=== PATIENT | female | born 1945 | race American Indian/Alaskan Native ===

== ENCOUNTER 2018-12-23 09:47 | Inpatient (IN) | payer MEDICARE ==
[~2018-12-23 09:47] MED LIST: LORazepam 2 MG/ML VIAL IV ONE
[2018-12-23] MEDS ORDERED: levETIRAcetam 1000 MG/NS 0.75% 1,000 MG/100 ML BAG IV ONE ×2 (09:55→11:07)
--- NOTE | 2018-12-23 10:47 | Emergency Department Report ---
HPI - General Time Seen by Provider: 12/23/18 09:57 - HPI HPI: 73-year-old -[place] female presents to the emergency department after having multiple seizures both at home and in route with EMS. She received 5 mg of Versed that helped stop the seizures that were occurring in route. She has a past medical history of multiple CVA, xnr-lizytih-uledrbeir diabetes, hypothy roidism, hypertension but there is no known seizure history. Patient is currently a poor historian secondary to her acute medical condition. Her previous strokes left her with residual left-sided hemiparesis. The patient's daughter is now at bedside and says that there has been no recent fall or trauma. ED Past Medical Hx - Past Medical History Hx Hypertension: Yes Hx Congestive Heart Failure: No Hx Diabetes: Yes Hx Arthritis: Yes Hx Asthma: Yes Hx COPD: Yes (asthma) - Social History Smoking Status: Former Smoker - Medications Home Medications: Home Medications Medication Instructions Recorded Confirmed Last Taken Type Insulin Detemir [Levemir Flexpen] 5 unit SC HS 02/16/13 12/23/18 12/22/18 History Insulin Aspart [NovoLOG 100 100 unit SQ AC PRN #1 bottle 03/15/13 12/23/18 12/22/18 Rx UNITS/ML VIAL] Multivitamin Tab [Multiple Vitamin 1 each PO QDAY #30 tablet 03/15/13 12/23/18 12/22/18 Rx TAB (Theragran)] glipiZIDE [Glipizide Xl] 2.5 mg PO QAM #30 tab.er.24 03/15/13 12/23/18 12/22/18 Rx glipiZIDE [Glipizide Xl] 5 mg PO QAM #30 tab.er.24 03/15/13 12/23/18 12/22/18 Rx DULoxetine [Cymbalta] 30 mg PO BID 12/23/18 12/23/18 12/22/18 History Ferrous Sulfate [Iron 325 MG] 325 mg PO QDAY 12/23/18 12/23/18 12/22/18 History Levothyroxine [Synthroid] 125 mcg PO QAM 12/23/18 12/23/18 12/22/18 History Pantoprazole [Protonix] 40 mg PO BID 12/23/18 12/23/18 12/22/18 History amLODIPine [Norvasc] 5 mg PO DAILY 12/23/18 12/23/18 12/22/18 History ED Review of Systems ROS: Stated complaint: SEIZURE Other details as noted in HPI Comment: Unobtainable due to pts medical conditions Physical Exam - Physical Exam Vital Signs: Vital Signs 12/23/18 10:05 Pulse Rate 144 H Respiratory 24 Rate Blood Pressure 172/89 [Left] Physical Exam: GENERAL: The patient is ill-appearing. HENT: Normocephalic. Atraumatic. Patient has moist mucous membranes. EYES: Extraocular motions are intact. Pupils are equal and reactive to light but sluggish. NECK: Supple. Trachea is midline. CHEST/LUNGS: Clear to auscultation. There is no respiratory distress noted. HEART/CARDIOVASCULAR: Regular. There is no tachycardia. There is no murmur. ABDOMEN: Abdomen is soft, nontender. Patient has normal bowel sounds. There is no abdominal distention. SKIN: Skin is warm and dry. Patient has some ecchymosis to the lower abdomen and groin. NEURO: The patient appears postictal and unresponsive. She will withdraw slightly to painful stimuli. Not following any commands. There is a gag reflex. MUSCULOSKELETAL: There is no tenderness or deformity. ED Course Vital Signs 12/23/18 10:05 Pulse Rate 144 H Respiratory 24 Rate Blood Pressure 172/89 [Left] ED Medical Decision Making - Lab Data Result diagrams: 12/23/18 10:55 12/23/18 10:55 - EKG Data -: EKG Interpreted by Me EKG shows normal: sinus rhythm, axis (left axis deviation), intervals (prolonged QTc), QRS complexes (right bundle-branch block, LVH), ST-T waves (there is some ST depressions to the lateral leads as part of the right bundle branch block) Rate: tachycardia (133 bpm) - EKG Data When compared to previous EKG there are: previous EKG unavailable Interpretation: other (sinus tachycardia 133 bpm, left axis deviation, prolonged QTC, right bundle branch block, LVH, ST depressions to the lateral leads as part of the Right bundle branch block) - Radiology Data Radiology results: report reviewed, image reviewed interpreted by me: Chest x-ray shows some pulmonary vascular congestion. No pneumothorax. No focal consolidation. CT HEAD WITHOUT CONTRAST INDICATION / CLINICAL INFORMATION: Seizures, altered mental status. TECHNIQUE: Axial imaging performed from the skull apex through the skull base without the use of contrast. Sagittal and coronal reformatted images. All CT scans at this location are performed using CT dose reduction for ALARA by means of automated exposure control. COMPARISON: None available. FINDINGS: CEREBRAL PARENCHYMA: There is moderate hypoattenuation throughout the white matter of the cerebral hemispheres which is nonspecific. This most likely represents chronic ischemic changes. Focal chronic infarct is suspected along t he right side of the corpus callosum in the posterior frontal region. The remaining brain parenchyma is unremarkable. HEMORRHAGE: None. EXTRA-AXIAL SPACES: Normal in size and morphology for the patient's age. VENTRICULAR SYSTEM: Normal in size and morphology for the patient's age. MIDLINE SHIFT OR H ERNIATION: None. CEREBELLUM / BRAINSTEM: No significant abnormality. CALVARIUM: No significant abnormality. ORBITS: Normal as visualized. PARANASAL SINUSES / MASTOID AIR CELLS: Normal as visualized. SOFT TISSUES of HEAD: No significant abnormality. ADDITIONAL FINDINGS: None. IMPRESSION: No acute intracranial abnormality. Nonspecific chronic white matter changes. Focal chronic infarct involving the right side of the corpus callosum. - Medical Decision Making This patient, with no seizure history, has had multiple seizures prior to arrival in the emergency department including in route with EMS, but then she did have 1 seizure here witnessed by myself as well. She had previously received some Versed and she received Ativan and was started on Keppra in the emergency department. CT scan of the head did not show any acute bleed, shift, mass, ischemia or any other acute process. Labs were mostly unremarkable except for a mild leukocytosis. The patient was reevaluated multiple times over multiple hours and has improved slightly but is still essentially unresponsive which may be still a prolonged postictal period. Vital signs stable throughout her ED course and the patient appears to be maintaining her airway and oxygenation. She will be admitted to the hospital for further evaluation and treatment was accepted for admission by the hospitalist, Dr Pizano. - Differential Diagnosis CVA, Epilepsy, Malignancy, Hypoglycemia, Dysrythmia Critical Care Time: Yes Critical care time in (mins) excluding proc time.: 35 Critical care attestation.: If time is entered above; I have spent that time in minutes in the direct care of this critically ill patient, excluding procedure time. Critical care time was spent on this patient and doing her initial evaluation, multiple re- evaluations, ordering and interpretation of labs and imaging, discussion with the neurologist and multiple discussions with the patient's family. Critical Care Time: 35 minutes ED Disposition Clinical Impression: Seizure disorder, Encephalopathy, SIRS (systemic inflammatory response syndrome), Unresponsiveness Diabetes mellitus Qualifiers: Diabetes mellitus type: type 2 Diabetes mellitus complication status: without complication HTN (hypertension) Qualifiers: Hypertension type: essential hypertension Qualified Code(s): I10 - Essential (primary) hypertension Disposition: 09 OP ADMIT IP TO THIS HOSP Is pt being admited?: Yes Condition: Serious
[2018-12-23] MEDS ORDERED: LORazepam 2 MG/ML VIAL ONE (11:02)
[2018-12-23 11:13] LABS: Amphetamine Screen,Urine PRESUMPTIVE NEGATIVE; Cannabinoid Screen,Urine PRESUMPTIVE NEGATIVE; Cocaine Screen,Urine PRESUMPTIVE NEGATIVE; Methadone Screen,Urine PRESUMPTIVE NEGATIVE; Opiate Screen,Urine PRESUMPTIVE NEGATIVE
[2018-12-23 11:14] LABS: Hematocrit 39.9 % (30.3-42.9); Hemoglobin 12.9 gm/dl (10.1-14.3); Mean Corpuscular HGB Conc 32 % (30-34); Mean Corpuscular Volume 88 fl (79-97); Platelet Count 266 K/mm3 (140-440); Red Blood Count 4.54 M/mm3 (3.65-5.03); Red Cell Distribution Width 18.2 % (13.2-15.2)
[2018-12-23 11:26] LABS: Benzodiazepines Screen,Urine PRESUMPTIVE POSITIVE
[2018-12-23 11:33] LABS: Bacteria,Urine 1+ /HPF (Negative); Bilirubin,Urine NEG (Negative); Blood,Urine NEG (Negative); Color,Urine Yellow (Yellow); Mucus,Urine FEW /HPF; Urobilinogen,Urine < 2.0 mg/dL (<2.0)
[2018-12-23 11:37] LABS: Protein,Urine >500 mg/dL (Negative)
[2018-12-23 11:38] LABS: Alanine Aminotransferase 14 units/L (7-56); Albumin 4.1 g/dL (3.9-5); BUN/Creatinine Ratio 10; Blood Urea Nitrogen 5 mg/dL (7-17); Calcium 9.9 mg/dL (8.4-10.2); Hemolysis Index 0
--- NOTE | 2018-12-23 13:21 | Cat Scan Report ---
CT HEAD WITHOUT CONTRAST INDICATION / CLINICAL INFORMATION: Seizures, altered mental status. TECHNIQUE: Axial imaging performed from the skull apex through the skull base without the use of cont rast. Sagittal and coronal reformatted images. All CT scans at this location are performed using CT dose reduction for ALARA by means of automated exposure control. COMPARISON: None available. FINDINGS: CEREBRAL PARENCHYMA: There is moderate hypoattenuation throughout the white matter of the cerebral he mispheres which is nonspecific. This most likely represents chronic ischemic changes. Focal chronic i nfarct is suspected along the right side of the corpus callosum in the posterior frontal region. The remaining brain parenchyma is unremarkable. HEMORRHAGE: None. EXTRA-AXIAL SPACES: Normal in size and morphology for the patient's age. VENTRICULAR SYSTEM: Normal in size and morphology for the patient's age. MIDLINE SHIFT OR HERNIATION: None. CEREBELLUM / BRAINSTEM: No significant abnormality. CALVARIUM: No significant abnormality. ORBITS: Normal as visualized. PARANASAL SINUSES / MASTOID AIR CELLS: Normal as visualized. SOFT TISSUES of HEAD: No significant abnormality. ADDITIONAL FINDINGS: None. IMPRESSION: No acute intracranial abnormality. Nonspecific chronic white matter changes. Focal chronic infarct in volving the right side of the corpus callosum. Signer Name: Elliot Su Jr, MD Signed: 12/23/2018 1:16 PM Workstation Name: [id number]
--- NOTE | 2018-12-23 13:25 | History and Physical Report ---
History of Present Illness Chief complaint: she is getting weaker, and was having seizures this morning. History of present illness: 73 YO Female with HTN, DM, OA, Asthma, COPD, CVA with LHP, Debility presents to ED for evaluation. Pt is confused and unable to provide history at time of my exam. Pt history is taken from family members who are at bedside during exam and interview. As per family, the patient has experienced increased confusion and decreased interaction with family over the past month with acutely worsening symptoms over the past 4 days. Pt was found by family members to have experienced multiple witnessed seizures today. EMS notified, and upon arrival the patient was found to be in distress, and transported to [facility]. Pt seen and evaluated in ED and found to have Encephalopathy, SIRS, and new onset Seizure Disorder. Pt admitted to [facility] unit and treated with IVF resuscitation therapy and IV antibiotic therapy. Pt family counseled regarding prognosis. No prior admission for review. All listed medication reconciled at time of admission. Pt is confused and lethargic, but has a positive gag reflex and is able to protect her airway. Past History Past Medical History: arthritis, diabetes, GERD, hypertension, hypothyroidism, other (Asthma) Past Surgical History: No surgical history, Other (reviewed) Social history: single, lives with family. denies: smoking, alcohol abuse, prescription drug abuse Family history: hypertension Medications and Allergies Allergies Allergy/AdvReac Type Severity Reaction Status Date / Time No Known Allergies Allergy Unverified 02/16/13 00:01 Home Medications Medication Instructions Recorded Confirmed Last Taken Type Insulin Detemir [Levemir Flexpen] 5 unit SC HS 02/16/13 12/23/18 12/22/18 History Insulin Aspart [NovoLOG 100 100 unit SQ AC PRN #1 bottle 03/15/13 12/23/18 12/22/18 Rx UNITS/ML VIAL] Multivitamin Tab [Multiple Vitamin 1 each PO QDAY #30 tablet 03/15/13 12/23/18 12/22/18 Rx TAB (Theragran)] glipiZIDE [Glipizide Xl] 2.5 mg PO QAM #30 tab.er.24 03/15/13 12/23/18 12/22/18 Rx glipiZIDE [Glipizide Xl] 5 mg PO QAM #30 tab.er.24 03/15/13 12/23/18 12/22/18 Rx DULoxetine [Cymbalta] 30 mg PO BID 12/23/18 12/23/18 12/22/18 History Ferrous Sulfate [Iron 325 MG] 325 mg PO QDAY 12/23/18 12/23/18 12/22/18 History Levothyroxine [Synthroid] 125 mcg PO QAM 12/23/18 12/23/18 12/22/18 History Pantoprazole [Protonix] 40 mg PO BID 12/23/18 12/23/18 12/22/18 History amLODIPine [Norvasc] 5 mg PO DAILY 12/23/18 12/23/18 12/22/18 History Review of Systems ROS unobtainable: due to mental status Exam - Constitutional Vitals: Temp Pulse Resp BP Pulse Ox 98.3 F 109 H 25 H 167/89 97 12/23/18 11:58 12/23/18 13:00 12/23/18 13:00 12/23/18 13:00 12/23/18 13:00 General appearance: Present: mild distress - EENT Eyes: Present: PERRL ENT: clear oral mucosa - Neck Neck: Present: supple, normal ROM - Respiratory Respiratory effort: normal Respiratory: bilateral: CTA - Cardiovascular Heart Sounds: Present: S1 & S2. Absent: rub, click - Extremities Extremities: pulses symmetrical, No edema Peripheral Pulses: within normal limits - Abdominal General gastrointestinal: Present: soft, non-tender, non-distended, normal bowel sounds Female genitourinary: Present: normal - Integumentary Integumentary: Present: dry, clammy, decreased turgor - Musculoskeletal Musculoskeletal: strength equal bilaterally, generalized weakness - Psychiatric Psychiatric: no appropriate mood/affect, no intact judgment & insight, no memory intact - Neurologic Neurologic: CNII-XII intact, moves all extremities, no gait normal Results - Labs CBC & Chem 7: 12/23/18 10:55 12/23/18 10:55 Labs: Abnormal lab results 12/23/18 12/23/18 12/23/18 Range/Units 10:55 10:55 10:55 WBC 15.6 H (4.5-11.0) K/mm3 RDW 18.2 H (13.2-15.2) % BUN 5 L (7-17) mg/dL Creatinine 0.5 L (0.7-1.2) mg/dL Glucose 184 H (65-100) mg/dL POC Glucose (70-105) Ammonia 65.0 H (25-60) umol/L Total Creatine Kinase (30-135) units/L TSH (0.270-4.200) mlU/mL Free T4 (0.76-1.46) ng/dL 12/23/18 12/23/18 12/23/18 Range/Units 10:55 10:55 10:55 WBC (4.5-11.0) K/mm3 RDW (13.2-15.2) % BUN (7-17) mg/dL Creatinine (0.7-1.2) mg/dL Glucose (65-100) mg/dL POC Glucose (70-105) Ammonia (25-60) umol/L Total Creatine Kinase 152 H (30-135) units/L TSH 0.007 L (0.270-4.200) mlU/mL Free T4 1.89 H (0.76-1.46) ng/dL 12/23/18 Range/Units 11:09 WBC (4.5-11.0) K/mm3 RDW (13.2-15.2) % BUN (7-17) mg/dL Creatinine (0.7-1.2) mg/dL Glucose (65-100) mg/dL POC Glucose 203 H (70-105) Ammonia (25-60) umol/L Total Creatine Kinase (30-135) units/L TSH (0.270-4.200) mlU/mL Free T4 (0.76-1.46) ng/dL Assessment and Plan - Patient Problems (1) Encephalopathy Current Visit: Yes Status: Acute Plan to address problem: CT Head, Neuro checks, seizure precautions, fall precautions, aspiration precautions, (2) Seizure disorder Current Visit: Yes Status: Acute Plan to address problem: Keppra loading, Keppra BID, EEG, supportive care. (3) SIRS (systemic inflammatory response syndrome) Current Visit: Yes Status: Acute Plan to address problem: IV antibiotic therapy, CBC, CMP, Urionalysis, Chest x ray, (4) Advance care planning Current Visit: Yes Status: Acute Plan to address problem: Discussed prognosis, end of life care, need for home PT, and possible SNF/[facility] placement depending on patient need,and family support capability (5) HTN (hypertension) Current Visit: No Status: Chronic Qualifiers: Hypertension type: essential hypertension Qualified Code(s): I10 - Essential (primary) hypertension Plan to address problem: Monito BP q shift, continue medical management. (6) Hypothyroidism Current Visit: No Status: Chronic Qualifiers: Hypothyroidism type: acquired Qualified Code(s): E03.9 - Hypothyroidism, unspecified Plan to address problem: continue synthroid, thyroid panel, supportive care. (7) Debility Current Visit: Yes Status: Acute Plan to address problem: PT consulted, supportive care, (8) DVT prophylaxis Current Visit: Yes Status: Acute Plan to address problem: SCD to BLE while in bed, Prophylactic lovenox
[2018-12-23] MEDS ORDERED: VANCOMYCIN 2,000 MG in SODIUM CHLORIDE 0.9% 500 ML 500 ML IV ONE (13:28)
[2018-12-23] MEDS ORDERED: DEXTROSE 50% IN WATER (25GM) 50 ML SYRINGE IV PRN (13:42)
[2018-12-23] MEDS ORDERED: VANCOMYCIN PHARMACY TO DOSE IV SCH (14:00)
--- NOTE | 2018-12-23 14:09 | XRay Report ---
CHEST 1 VIEW INDICATION: dypsnea. COMPARISON: None FINDINGS: Support devices: None. Heart: Borderline to mild cardiomegaly Lungs/Pleura: Mild central pulmonary venous congestion. There is minor linear atelectasis or scarring in the right upper lobe. No consolidation, pleural effusion or pneumothorax. Additional findings: None. IMPRESSION: Mild cardiomegaly and central pulmonary venous congestion. Signer Name: Elliot Su Jr, MD Signed: 12/23/2018 2:04 PM Workstation Name: [id number]
[2018-12-23 14:47] LABS: Basophils % (Manual) 0 % (0.0-1.8); Eosinophils % (Manual) 0 % (0.0-4.3); Total Cells Counted 100
[2018-12-23 14:48] LABS: Anisocytosis 1+; Platelet Estimate Consistent w Auto
[2018-12-23] MEDS: INSULIN LISPRO 100 UNIT/ML SUB-Q SCH ×2 (17:50→23:11)
[2018-12-23] MEDS: ACETAMINOPHEN 325 MG TAB PO PRN ×2 (19:56→23:36)
[2018-12-23] MEDS: ENOXAPARIN 40 MG/0.4 ML INJ SUB-Q SCH (23:10)
[2018-12-23] MEDS: levETIRAcetam 500 MG TAB PO SCH (23:10)
[2018-12-23] MEDS: DULoxetine 30 MG CAP PO SCH (23:10)
[2018-12-23] MEDS: PANTOPRAZOLE 40 MG TAB PO SCH (23:10)
[2018-12-24] MEDS ORDERED: MAGNESIUM SULFATE 2 GM/50 ML BAG IV ONE (03:43)
[2018-12-24] MEDS ORDERED: POTASSIUM CHLORIDE ER 20 MEQ TAB PO ONE (03:43)
[2018-12-24] MEDS: ONDANSETRON 4 MG/2 ML INJ IV PRN ×2 (04:08→09:28)
[2018-12-24] MEDS: INSULIN LISPRO 100 UNIT/ML SUB-Q SCH ×4 (08:22→23:02)
[2018-12-24] MEDS: amLODIPine 5 MG TAB PO SCH (09:28)
[2018-12-24] MEDS: DULoxetine 30 MG CAP PO SCH ×2 (09:28→23:02)
[2018-12-24] MEDS: levETIRAcetam 500 MG TAB PO SCH ×2 (09:28→23:01)
[2018-12-24] MEDS: PANTOPRAZOLE 40 MG TAB PO SCH ×2 (09:28→23:01)
[2018-12-24] MEDS ORDERED: FERROUS SULFATE 325 MG TAB PO SCH (10:00)
[2018-12-24] MEDS ORDERED: LEVOTHYROXINE 112 MCG TAB PO SCH (10:00)
[2018-12-24] MEDS ORDERED: MULTIVITAMINS ,THERAPEUTIC TAB PO SCH (10:00)
[2018-12-24] MEDS ORDERED: SODIUM CHLORIDE 0.9% 100 ML IVPB IV SCH (18:00)
[2018-12-24] MEDS: LORazepam 2 MG/ML VIAL IV PRN (18:30)
[2018-12-24] MEDS: SODIUM CHLORIDE 0.9% 1000 ML 1,000 ML IV SCH (18:30)
--- NOTE | 2018-12-24 20:30 | Progress Note ---
Assessment and Plan - Patient Problems (1) Debility Current Visit: Yes Status: Acute Plan to address problem: Disability will perform PT supportive care. We'll address underlying etiology. (2) Encephalopathy Current Visit: Yes Status: Acute Plan to address problem: Most likely secondary to seizure disorder. Patient placed on anti-, moles Or. Aspiration precautions. Fall precautions. We'll also obtain MRI. Patient has worsening left hemiparesis according to family. In total he cannot move the left side. Rule out CVA. (3) Seizure disorder Current Visit: Yes Status: Acute Plan to address problem: Started on Keppra fall precautions aspiration precautions. No further seizures since initiation of medication. supportive care care treat agitation with Ativan. (4) Diabetes mellitus Current Visit: Yes Status: Chronic Qualifiers: Diabetes mellitus type: type 2 Diabetes mellitus complication status: without complication Plan to address problem: And currently has fair control of diabetes. 140 09/05/2020. Would not be overly aggressive patient is not eating very well. Prevent hypoglycemia. (5) HTN (hypertension) Current Visit: Yes Status: Chronic Qualifiers: Hypertension type: essential hypertension Qualified Code(s): I10 - Essential (primary) hypertension Plan to address problem: Well control with medical management. (6) Hypothyroidism Current Visit: No Status: Chronic Qualifiers: Hypothyroidism type: acquired Qualified Code(s): E03.9 - Hypothyroidism, unspecified Plan to address problem: Patient does not appear to be thyrotoxic storm has no signs or symptoms of hypo- or hyperthyroidism. TSH was 0.007 we'll decrease to 111. History Interval history: Patient admitted 30 with a history of hypertension diabetes osteoarthritis COPD CVA with left hemiparesis and debility. Presents with altered mental status found to have multiple seizures. No onset. Patient this a.m. is acting differently. Daughter at bedside states the patient is normally talkative and interactive. Patient today shows evidence of delirium. Patient will look at me recognize me and look at daughter and recognize her and say her name and after that she is in a constant gaze fidgeting moving from back and forth. Hospitalist Physical - Constitutional Vitals: Temp Pulse Resp BP Pulse Ox 97.8 F 118 H 22 161/88 93 12/24/18 19:11 12/24/18 19:14 12/24/18 19:11 12/24/18 19:11 12/24/18 19:14 General appearance: Present: mild distress - EENT Eyes: Present: PERRL, EOM intact ENT: hearing intact, clear oral mucosa, dentition normal, no oropharyngeal erythema, no poor dentition, no thrush - Neck Neck: Present: supple, normal ROM - Respiratory Respiratory: bilateral: CTA - Cardiovascular Rhythm: regular - Extremities Extremities: no ischemia, pulses intact, pulses symmetrical, No edema, normal temperature, normal color Peripheral Pulses: within normal limits - Abdominal General gastrointestinal: soft, non-tender, non-distended, normal bowel sounds, no hepatomegaly, no splenomegaly - Integumentary Integumentary: Present: clear, warm, dry. Absent: erythema, jaundice, rash, clammy - Psychiatric Psychiatric: other (poor judgment cognitive impairment patient does move all extremities.) - Neurologic Neurologic: moves all extremities Results - Labs CBC & Chem 7: 12/23/18 10:55 12/24/18 00:41 Labs: Laboratory Last Values WBC 15.6 K/mm3 (4.5-11.0) H 12/23/18 10:55 RBC 4.54 M/mm3 (3.65-5.03) 12/23/18 10:55 Hgb 12.9 gm/dl (10.1-14.3) 12/23/18 10:55 Hct 39.9 % (30.3-42.9) 12/23/18 10:55 MCV 88 fl (79-97) 12/23/18 10:55 MCH 29 pg (28-32) 12/23/18 10:55 MCHC 32 % (30-34) 12/23/18 10:55 RDW 18.2 % (13.2-15.2) H 12/23/18 10:55 Plt Count 266 K/mm3 (140-440) 12/23/18 10:55 Add Manual Diff Complete 12/23/18 10:55 Total Counted 100 12/23/18 10:55 Seg Neutrophils % Hr Analyst 12/23/18 10:55 Seg Neuts % (Manual) 92.0 % (40.0-70.0) H 12/23/18 10:55 0 % 12/23/18 10:55 6.0 % (13.4-35.0) L 12/23/18 10:55 Reactive Lymphs % (Man) 0 % 12/23/18 10:55 2.0 % (0.0-7.3) 12/23/18 10:55 0 % (0.0-4.3) 12/23/18 10:55 0 % (0.0-1.8) 12/23/18 10:55 0 % 12/23/18 10:55 0 % 12/23/18 10:55 0 % 12/23/18 10:55 0 % 12/23/18 10:55 Nucleated RBC % Not Reportable 12/23/18 10:55 Seg Neutrophils # Man 14.4 K/mm3 (1.8-7.7) H 12/23/18 10:55 Band Neutrophils # 0.0 K/mm3 12/23/18 10:55 0.9 K/mm3 (1.2-5.4) L 12/23/18 10:55 Abs React Lymphs (Man) 0.0 K/mm3 12/23/18 10:55 0.3 K/mm3 (0.0-0.8) 12/23/18 10:55 0.0 K/mm3 (0.0-0.4) 12/23/18 10:55 0.0 K/mm3 (0.0-0.1) 12/23/18 10:55 0.0 K/mm3 12/23/18 10:55 0.0 K/mm3 12/23/18 10:55 0.0 K/mm3 12/23/18 10:55 Blast Cells # 0.0 K/mm3 12/23/18 10:55 WBC Morphology Not Reportable 12/23/18 10:55 Hypersegmented Neuts Not Reportable 12/23/18 10:55 Hyposegmented Neuts Not Reportable 12/23/18 10:55 Hypogranular Neuts Not Reportable 12/23/18 10:55 Not Reportable 12/23/18 10:55 Not Reportable 12/23/18 10:55 Not Reportable 12/23/18 10:55 Not Reportable 12/23/18 10:55 Not Reportable 12/23/18 10:55 Not Reportable 12/23/18 10:55 Consistent w auto 12/23/18 10:55 Not Reportable 12/23/18 10:55 Plt Clumps, EDTA Not Reportable 12/23/18 10:55 Not Reportable 12/23/18 10:55 Not Reportable 12/23/18 10:55 Not Reportable 12/23/18 10:55 Plt Morphology Comment Not Reportable 12/23/18 10:55 RBC Morphology Not Reportable 12/23/18 10:55 Dimorphic RBCs Not Reportable 12/23/18 10:55 Not Reportable 12/23/18 10:55 Not Reportable 12/23/18 10:55 Not Reportable 12/23/18 10:55 1+ 12/23/18 10:55 Not Reportable 12/23/18 10:55 Not Reportable 12/23/18 10:55 Not Reportable 12/23/18 10:55 Not Reportable 12/23/18 10:55 Not Reportable 12/23/18 10:55 Not Reportable 12/23/18 10:55 Not Reportable 12/23/18 10:55 Not Reportable 12/23/18 10:55 Not Reportable 12/23/18 10:55 Not Reportable 12/23/18 10:55 Not Reportable 12/23/18 10:55 Not Reportable 12/23/18 10:55 Not Reportable 12/23/18 10:55 Not Reportable 12/23/18 10:55 Not Reportable 12/23/18 10:55 Acanthocytes (Spur) Not Reportable 12/23/18 10:55 Rouleaux Not Reportable 12/23/18 10:55 Not Reportable 12/23/18 10:55 Not Reportable 12/23/18 10:55 Not Reportable 12/23/18 10:55 Not Reportable 12/23/18 10:55 Hem Pathologist Commnt No 12/23/18 10:55 VBG pH 7.333 (7.320-7.420) 12/23/18 11:13 Sodium 141 mmol/L (137-145) 12/23/18 10:55 Potassium 3.0 mmol/L (3.6-5.0) L D 12/24/18 00:41 Chloride 99.0 mmol/L (98-107) 12/23/18 10:55 Carbon Dioxide 27 mmol/L (22-30) 12/23/18 10:55 20 mmol/L 12/23/18 10:55 BUN 5 mg/dL (7-17) L 12/23/18 10:55 0.5 mg/dL (0.7-1.2) L 12/23/18 10:55 Estimated GFR > 60 ml/min 12/23/18 10:55 10 % 12/23/18 10:55 Glucose 184 mg/dL (65-100) H 12/23/18 10:55 POC Glucose 146 (70-105) H 12/24/18 16:31 Lactic Acid 1.10 mmol/L (0.7-2.0) 12/23/18 20:07 Calcium 9.9 mg/dL (8.4-10.2) 12/23/18 10:55 Magnesium 1.60 mg/dL (1.7-2.3) L 12/24/18 00:41 0.30 mg/dL (0.1-1.2) 12/23/18 10:55 AST 8 units/L (5-40) 12/23/18 10:55 ALT 14 units/L (7-56) 12/23/18 10:55 114 units/L (35-129) 12/23/18 10:55 65.0 umol/L (25-60) H 12/23/18 10:55 152 units/L (30-135) H 12/23/18 10:55 6.5 g/dL (6.3-8.2) 12/23/18 10:55 4.1 g/dL (3.9-5) 12/23/18 10:55 1.7 % 12/23/18 10:55 TSH 0.007 mlU/mL (0.270-4.200) L 12/23/18 10:55 Free T4 1.89 ng/dL (0.76-1.46) H 12/23/18 10:55 Yellow (Yellow) 12/23/18 10:30 Slightly-cloudy (Clear) 12/23/18 10:30 6.0 (5.0-7.0) 12/23/18 10:30 Ur Specific [place] 1.015 (1.003-1.030) 12/23/18 10:30 >500 mg/dL (Negative) 12/23/18 10:30 50 mg/dL (Negative) 12/23/18 10:30 Tr mg/dL (Negative) 12/23/18 10:30 Neg (Negative) 12/23/18 10:30 Neg (Negative) 12/23/18 10:30 Neg (Negative) 12/23/18 10:30 < 2.0 mg/dL (<2.0) 12/23/18 10:30 Ur Leukocyte Esterase Neg (Negative) 12/23/18 10:30 3.0 /HPF (0.0-6.0) 12/23/18 10:30 6.0 /HPF (0.0-6.0) 12/23/18 10:30 U Epithel Cells (Auto) 1.0 /HPF (0-13.0) 12/23/18 10:30 1+ /HPF (Negative) 12/23/18 10:30 Few /HPF 12/23/18 10:30 Presumptive negative 12/23/18 10:30 Presumptive negative 12/23/18 10:30 Ur Barbiturates Screen Presumptive negative 12/23/18 10:30 Ur Phencyclidine Scrn Presumptive negative 12/23/18 10:30 Ur Amphetamines Screen Presumptive negative 12/23/18 10:30 U Benzodiazepines Scrn Presumptive positive 12/23/18 10:30 Presumptive negative 12/23/18 10:30 U Marijuana (THC) Screen Presumptive negative 12/23/18 10:30 Disclamer 12/23/18 10:30 Plasma/Serum Alcohol < 0.01 % (0-0.07) 12/23/18 10:55 - Imaging and Cardiology EKG: report reviewed, image reviewed Chest x-ray: report reviewed, image reviewed CT Scan - head: report reviewed Active Medications - Current Medications Current Medications: Generic Name Dose Route Start Last Admin Trade Name Freq PRN Reason Stop Dose Admin Acetaminophen 650 mg 12/23/18 13:27 12/23/18 23:36 Tylenol PO 650 mg Q4H PRN Administration Pain MILD(1-3)/Fever >100.5/FLORES Amlodipine Besylate 5 mg 12/24/18 10:00 12/24/18 09:28 Norvasc PO 5 mg DAILY AKASH Administration Dextrose 50 ml 12/23/18 13:42 D50w (25gm) Syringe IV PRN PRN Hypoglycemia Duloxetine HCl 30 mg 12/23/18 22:00 12/24/18 09:28 Cymbalta PO 30 mg BID AKASH Administration Enoxaparin Sodium 40 mg 12/23/18 22:00 12/23/18 23:10 Lovenox SUB-Q 40 mg QDAY@2200 AKASH Administration Ferrous Sulfate 325 mg 12/24/18 10:00 12/24/18 09:28 Feosol PO 325 mg QDAY AKASH Administration Levofloxacin/Dextrose 750 mg in 150 mls @ 100 mls/hr 12/24/18 10:00 12/24/18 09:28 Levaquin 750mg/150ml IV 100 mls/hr Q24HR AKASH Administration Protocol Sodium Chloride 1,000 mls @ 75 mls/hr 12/24/18 18:00 12/24/18 18:30 Nacl 0.9% 1000 Ml IV 75 mls/hr DIRECT AKASH Administration Insulin Human Lispro 0 unit 12/23/18 16:30 12/24/18 16:30 Humalog SUB-Q Not Given ACHS [facility] Protocol Levetiracetam 500 mg 12/23/18 22:00 12/24/18 09:28 Keppra PO 500 mg BID AKASH Administration Levothyroxine Sodium 100 mcg 12/25/18 06:00 Synthroid PO DAILY@0600 AKASH Lorazepam 1 mg 12/24/18 17:29 12/24/18 18:30 Ativan IV 1 mg Q4H PRN Administration Agitation Multivitamins 1 each 12/24/18 10:00 12/24/18 09:28 Theragran Tab PO 1 each QDAY AKASH Administration Ondansetron HCl 4 mg 12/23/18 13:27 12/24/18 09:28 Zofran IV 4 mg Q8H PRN Administration Nausea And Vomiting Pantoprazole Sodium 40 mg 12/23/18 22:00 12/24/18 09:28 Protonix PO 40 mg BID AKASH Administration Sodium Chloride 10 ml 12/23/18 22:00 12/24/18 09:30 Sodium Chloride Flush Syringe 10 Ml IV 10 ml BID AKASH Administration Sodium Chloride 10 ml 12/23/18 13:27 Sodium Chloride Flush Syringe 10 Ml IV PRN PRN LINE FLUSH Nutrition/Malnutrition Assess - Dietary Evaluation Nutrition/Malnutrition Findings: Nutrition Notes Start: 12/24/18 1 0:03 Freq: Status: Active Protocol: Document 12/24/18 10:03 KS (Rec: 12/24/18 11:21 KS [id number]) Co-Sign 12/24/18 10:03 LP Nutrition Notes Need for Assessment generated from: MST Initial or Follow up Assessment Current Diagnosis COPD,Diabetes,Hypertension Other Pertinent Diagnosis CVA, Debility, Seizures, Encephalopathy, SIRS Current Diet Cardiac Diet Labs/Tests K - 3.0 Mag - 1.6 POC Glu - 161 Pertinent Medications Reviewed Height 5 ft 6 in Weight 104 kg Usual Body Weight 99.337 kg [place] Body Weight (kg) 59.09 BMI 37.0 Intake Prior to Admission Poor Weight Status Obese Subjective/Other Information Pt screen for skin risk. Pt reports having poor appetite and did not eat 2 days SHAKER OUT. Family reports pt typically does not eat solids but will drink padmini reba. Pt did not eat off tray this morning. Pt says medications decrease her appetite. Offered ONS but pt did not think she could drink anything. Pt reports 10 lbs wt loss over past 2-3 weeks with a UBW of 219lbs. 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 No Is Patient Ambulatory and/or Out of Bed No REE-([facility]-confined to bed) 1879.860 Kcal/Kg value to use for calculation 15 Approximate Energy Requirements Using 1560 kcal/Kg Calculation Used for Recommendations Kcal/kg Additional Notes PRO needs: 98-122g (1.2-1.5g/ kg/day using AdBW of 81.5kg) Fluid needs: 1ml/kcal Nutrition Intervention Change Diet Order: Continue current diet Add Supplement/Snack (indicate name/kcal One Ensure Clear /protein ) Provides kCal: 240 Provides Protein (gm) 8 Goal #1 Increase intakes to meet 75% of energy and PRO needs Anticipated Discharge Needs: Cardiac/Consistent Carb Diet Follow-Up By: 12/28/18 Additional Comments Follow-up to monitor intakes
[2018-12-24] MEDS: ENOXAPARIN 40 MG/0.4 ML INJ SUB-Q SCH (23:01)
[2018-12-25] MEDS: LEVOTHYROXINE 100 MCG TAB PO SCH (05:32)
[2018-12-25] MEDS: SODIUM CHLORIDE 0.9% 1000 ML 1,000 ML IV SCH ×2 (05:48→22:17)
[2018-12-25 06:26] LABS: Basophils # (Auto) 0.1 K/mm3 (0.0-0.1); Basophils % (Auto) 0.8 % (0.0-1.8); Eosinophils % (Auto) 0.1 % (0.0-4.3); Hematocrit 39.3 % (30.3-42.9); Hemoglobin 13.1 gm/dl (10.1-14.3); Lymphocytes # (Auto) 1.4 K/mm3 (1.2-5.4); Lymphocytes % (Auto) 18.4 % (13.4-35.0); Mean Corpuscular HGB Conc 33 % (30-34); Mean Corpuscular Volume 87 fl (79-97); Monocytes # (Auto) 0.9 K/mm3 (0.0-0.8); Monocytes % (Auto) 11.9 % (0.0-7.3); Platelet Count 202 K/mm3 (140-440); Red Blood Count 4.51 M/mm3 (3.65-5.03); Red Cell Distribution Width 17.4 % (13.2-15.2)
[2018-12-25 06:51] LABS: BUN/Creatinine Ratio 16; Blood Urea Nitrogen 8 mg/dL (7-17); Calcium 9.2 mg/dL (8.4-10.2); Hemolysis Index 16
[2018-12-25] MEDS: INSULIN LISPRO 100 UNIT/ML SUB-Q SCH ×4 (07:45→22:33)
[2018-12-25] MEDS ORDERED: levETIRAcetam 500 MG/5 ML ORAL LIQD PO SCH (10:00)
--- NOTE | 2018-12-25 10:11 | Magnetic Resonance Report ---
MRI BRAIN WITHOUT CONTRAST INDICATION / CLINICAL INFORMATION: Altered mental status. CVA TECHNIQUE: Multisequence, multiplanar images were obtained. COMPARISON: CT head dated 12/23/2018 FINDINGS: CEREBRAL and CEREBELLAR HEMISPHERES: There is moderate diffuse cortical volume loss and moderate press setup operator sachin microvascular ischemic changes in the white matter. Subtle areas of diffusion restriction are id entified in the right subinsular cortex, right hippocampus and right parietal cortex consistent with subacute ischemia. No evidence for hemorrhage, mass, midline shift or extra-axial fluid collection. Chronic lacunar infarcts are identified in both thalami. Chronic lacunar infarct is also suspected i n the cristian near midline. VENTRICLES: Normal in size and configuration for age. VISUALIZED ORBITS: No significant abnormality. VISUALIZED PARANASAL SINUSES: Minimal mucosal thickening is noted in the ethmoid air cells. The remai dave sinuses are well-aerated. The right mastoid air cells are partially opacified with fluid. ADDITIONAL FINDINGS: None. IMPRESSION: Subacute ischemic infarct involving the right subinsular cortex, right hippocampus and right parietal cortex within the right MCA distribution. No evidence for hemorrhage or mass effect. Volume loss. Chronic lacunar infarcts in both thalami and cristian. Chronic microvascular ischemic disease in the white matter. Signer Name: Elliot Su Jr, MD Signed: 12/25/2018 10:06 AM Workstation Name: [id number]
[2018-12-25] MEDS: DULoxetine 30 MG CAP PO SCH ×2 (10:37→22:46)
[2018-12-25] MEDS: LANSOPRAZOLE 30 MG SOLUTAB FEEDTUBE SCH ×2 (10:37→22:47)
[2018-12-25] MEDS: amLODIPine 5 MG TAB PO SCH (10:39)
--- NOTE | 2018-12-25 10:40 | Consultation ---
History of Present Illness Consult date: 12/25/18 History of present illness: I went over the MRI of the brain and there is clear acute ischemia of the medial temporal lobe and the area of ischemis is certainly in the temporal lobe medial portion and this clearly can produce confusion and sevre memory loss based on the area etiology of the stroke is being assessed Past History Past Medical History: arthritis, diabetes, GERD, hypertension, hypothyroidism, other (Asthma) Past Surgical History: No surgical history, Other (reviewed) Social history: single, lives with family. denies: smoking, alcohol abuse, prescription drug abuse Family history: hypertension Medications and Allergies Allergies Allergy/AdvReac Type Severity Reaction Status Date / Time No Known Allergies Allergy Unverified 02/16/13 00:01 Home Medications Medication Instructions Recorded Confirmed Last Taken Type Insulin Detemir [Levemir Flexpen] 5 unit SC HS 02/16/13 12/23/18 12/22/18 History Insulin Aspart [NovoLOG 100 100 unit SQ AC PRN #1 bottle 03/15/13 12/23/18 12/22/18 Rx UNITS/ML VIAL] Multivitamin Tab [Multiple Vitamin 1 each PO QDAY #30 tablet 03/15/13 12/23/18 12/22/18 Rx TAB (Theragran)] glipiZIDE [Glipizide Xl] 2.5 mg PO QAM #30 tab.er.24 03/15/13 12/23/18 12/22/18 Rx glipiZIDE [Glipizide Xl] 5 mg PO QAM #30 tab.er.24 03/15/13 12/23/18 12/22/18 Rx DULoxetine [Cymbalta] 30 mg PO BID 12/23/18 12/23/18 12/22/18 History Ferrous Sulfate [Iron 325 MG] 325 mg PO QDAY 12/23/18 12/23/18 12/22/18 History Levothyroxine [Synthroid] 125 mcg PO QAM 12/23/18 12/23/18 12/22/18 History Pantoprazole [Protonix] 40 mg PO BID 12/23/18 12/23/18 12/22/18 History amLODIPine [Norvasc] 5 mg PO DAILY 12/23/18 12/23/18 12/22/18 History Active Meds: Active Medications Acetaminophen (Tylenol) 650 mg PO Q4H PRN PRN Reason: Pain MILD(1-3)/Fever >100.5/FLORES Amlodipine Besylate (Norvasc) 5 mg PO DAILY [facility] Last Admin: 12/24/18 09:28 Dose: 5 mg Documented by: Dextrose (D50w (25gm) Syringe) 50 ml IV PRN PRN PRN Reason: Hypoglycemia Duloxetine HCl (Cymbalta) 30 mg PO BID [facility] Last Admin: 12/24/18 23:02 Dose: 30 mg Documented by: Enoxaparin Sodium (Lovenox) 40 mg SUB-Q QDAY@2200 [facility] Last Admin: 12/24/18 23:01 Dose: 40 mg Documented by: Ferrous Sulfate (Ferrous Sulfate) 308 mg PO QDAY [facility] Levofloxacin/Dextrose (Levaquin 750mg/150ml) 750 mg in 150 mls @ 100 mls/hr IV Q24HR [facility]; Protocol Stop: 12/28/18 11:29 Last Admin: 12/24/18 09:28 Dose: 100 mls/hr Documented by: Sodium Chloride (Nacl 0.9% 1000 Ml) 1,000 mls @ 75 mls/hr IV DIRECT [facility] Last Admin: 12/25/18 05:48 Dose: 75 mls/hr Documented by: Insulin Human Lispro (Humalog) 0 unit SUB-Q ACHS [facility]; Protocol Last Admin: 12/24/18 23:02 Dose: 2 unit Documented by: Lansoprazole (Prevacid Solutab) 30 mg FEEDTUBE BID [facility] Levetiracetam (Keppra) 500 mg PO BID [facility] Levothyroxine Sodium (Synthroid) 100 mcg PO DAILY@0600 [facility] Last Admin: 12/25/18 05:32 Dose: 100 mcg Documented by: Lorazepam (Ativan) 1 mg IV Q4H PRN PRN Reason: Agitation Last Admin: 12/24/18 18:30 Dose: 1 mg Documented by: Multivitamins (Centrum Liq) 5 ml PO QDAY [facility] Ondansetron HCl (Zofran) 4 mg IV Q8H PRN PRN Reason: Nausea And Vomiting Last Admin: 12/24/18 09:28 Dose: 4 mg Documented by: Sodium Chloride (Sodium Chloride Flush Syringe 10 Ml) 10 ml IV BID [facility] Last Admin: 09/19/19 23:05 Dose: 10 ml Documented by: Sodium Chloride (Sodium Chloride Flush Syringe 10 Ml) 10 ml IV PRN PRN PRN Reason: LINE FLUSH Physical Examination - Vital Signs Vital Signs: Vital Signs Pulse Resp Pulse Ox 82 15 95 12/23/18 07:46 12/23/18 07:46 12/23/18 07:46 Results - Laboratory Findings CBC and BMP: 12/25/18 06:03 12/25/18 06:03 Abnormal Lab Findings: Abnormal Labs 12/23/18 12/23/18 12/23/18 10:55 10:55 10:55 WBC 15.6 H RDW 18.2 H [place] % (Auto) [place] # Seg Neuts % (Manual) 92.0 H Lymphocytes % (Manual) 6.0 L Seg Neutrophils # Man 14.4 H Lymphocytes # (Manual) 0.9 L Potassium Chloride Carbon Dioxide BUN 5 L Creatinine 0.5 L Glucose 184 H POC Glucose Lactic Acid Magnesium Ammonia 65.0 H Total Creatine Kinase TSH Free T4 12/23/18 12/23/18 12/23/18 10:55 10:55 10:55 WBC RDW [place] % (Auto) [place] # Seg Neuts % (Manual) Lymphocytes % (Manual) Seg Neutrophils # Man Lymphocytes # (Manual) Potassium Chloride Carbon Dioxide BUN Creatinine Glucose POC Glucose Lactic Acid Magnesium Ammonia Total Creatine Kinase 152 H TSH 0.007 L Free T4 1.89 H 12/23/18 12/23/18 12/23/18 11:09 13:41 16:55 WBC RDW [place] % (Auto) [place] # Seg Neuts % (Manual) Lymphocytes % (Manual) Seg Neutrophils # Man Lymphocytes # (Manual) Potassium Chloride Carbon Dioxide BUN Creatinine Glucose POC Glucose 203 H 201 H Lactic Acid 2.20 H* Magnesium Ammonia Total Creatine Kinase TSH Free T4 12/23/18 12/24/18 12/24/18 21:29 00:41 08:05 WBC RDW [place] % (Auto) [place] # Seg Neuts % (Manual) Lymphocytes % (Manual) Seg Neutrophils # Man Lymphocytes # (Manual) Potassium 3.0 L D Chloride Carbon Dioxide BUN Creatinine Glucose POC Glucose 161 H 161 H Lactic Acid Magnesium 1.60 L Ammonia Total Creatine Kinase TSH Free T4 12/24/18 12/24/18 12/24/18 11:41 16:31 21:54 WBC RDW [place] % (Auto) [place] # Seg Neuts % (Manual) Lymphocytes % (Manual) Seg Neutrophils # Man Lymphocytes # (Manual) Potassium Chloride Carbon Dioxide BUN Creatinine Glucose POC Glucose 199 H 146 H 178 H Lactic Acid Magnesium Ammonia Total Creatine Kinase TSH Free T4 12/25/18 12/25/18 12/25/18 06:03 06:03 07:19 WBC RDW 17.4 H [place] % (Auto) 11.9 H [place] # 0.9 H Seg Neuts % (Manual) Lymphocytes % (Manual) Seg Neutrophils # Man Lymphocytes # (Manual) Potassium 3.2 L Chloride 94.4 L Carbon Dioxide 31 H BUN Creatinine 0.5 L Glucose 187 H POC Glucose 170 H Lactic Acid Magnesium Ammonia Total Creatine Kinase TSH Free T4
[2018-12-25] MEDS: MULTIVITAMINS 5 ML ORAL LIQUID PO SCH (11:00)
[2018-12-25] MEDS: FERROUS SULFATE 308 MG (62mg Elemental Iron) / 7 ML ELIXIR PO SCH (11:00)
[2018-12-25] MEDS ORDERED: ACETAMINOPHEN 650 MG RECT SUPP PR PRN (13:50)
[2018-12-25] MEDS: LORazepam 2 MG/ML VIAL IV PRN ×2 (14:23→18:27)
--- NOTE | 2018-12-25 17:17 | Progress Note ---
Assessment and Plan - Patient Problems (1) Debility Current Visit: Yes Status: Acute Plan to address problem: Disability will perform PT supportive care. We'll address underlying etiology. Which could be postictal versus CVA. Patient will need physical therapy for CVA. (2) Encephalopathy Current Visit: Yes Status: Acute Plan to address problem: 2 factorial post ictal plus prior CVA. As well as some RC from receiving Ativan treat uncontrolled seizures. (3) Seizure disorder Current Visit: Yes Status: Acute Plan to address problem: She continues to have seizure most likely secondary to CVA. We'll increase Her to 750 twice a day. Patient seizures uncontrolled and has episodes of hypoxemia. Seizure still have not resolved we'll transfer to [facility]. For further observation. And especially to protect airways. The bedside and all questions answered to their satisfaction. (4) Diabetes mellitus Current Visit: Yes Status: Chronic Qualifiers: Diabetes mellitus type: type 2 Diabetes mellitus complication status: without complication Plan to address problem: And currently has fair control of diabetes. 140 09/05/2020. Would not be overly aggressive patient is not eating very well. Prevent hypoglycemia. She is still has poor appetite will avoid oral hypoglycemic agents. On the scale insulin coverage. (5) HTN (hypertension) Current Visit: Yes Status: Chronic Qualifiers: Hypertension type: essential hypertension Qualified Code(s): I10 - Essential (primary) hypertension Plan to address problem: Well control with medical management. (6) Hypothyroidism Current Visit: No Status: Chronic Qualifiers: Hypothyroidism type: acquired Qualified Code(s): E03.9 - Hypothyroidism, unspecified Plan to address problem: Patient does not appear to be thyrotoxic storm has no signs or symptoms of hypo- or hyperthyroidism. TSH was 0.007 we'll decrease to 111. (7) Hypomagnesemia Current Visit: Yes Status: Acute Plan to address problem: correct iv at this point (8) Hypokalemia Current Visit: Yes Status: Acute History Interval history: Patient witness have an active seizure. Required Ativan. Went over MRI results with family to suggest subacute CVA. Hospitalist Physical - Constitutional Vitals: Temp Pulse Resp BP Pulse Ox 102.3 F H 120 H 19 165/84 98 12/25/18 13:42 12/25/18 13:42 12/25/18 13:58 12/25/18 13:42 12/25/18 13:42 General appearance: Present: mild distress - EENT Eyes: Present: PERRL, EOM intact ENT: poor dentition, no oropharyngeal erythema, no thrush, no ulcerations - Neck Neck: Present: supple, normal ROM - Respiratory Respiratory: bilateral: diminished, rales - Cardiovascular Rhythm: regular - Extremities Extremities: no ischemia, pulses intact, pulses symmetrical, No edema Peripheral Pulses: within normal limits - Abdominal General gastrointestinal: soft, non-tender, hypoactive bowel sounds - Integumentary Integumentary: Present: clear, warm, dry - Neurologic Neurologic: other (patient having ongoing and active seizures. Require Ativan. Seizure witnessed by myself.) Results - Labs CBC & Chem 7: 12/25/18 06:03 12/25/18 06:03 Labs: Laboratory Last Values WBC 7.8 K/mm3 (4.5-11.0) 12/25/18 06:03 RBC 4.51 M/mm3 (3.65-5.03) 12/25/18 06:03 Hgb 13.1 gm/dl (10.1-14.3) 12/25/18 06:03 Hct 39.3 % (30.3-42.9) 12/25/18 06:03 MCV 87 fl (79-97) 12/25/18 06:03 MCH 29 pg (28-32) 12/25/18 06:03 MCHC 33 % (30-34) 12/25/18 06:03 RDW 17.4 % (13.2-15.2) H 12/25/18 06:03 Plt Count 202 K/mm3 (140-440) 12/25/18 06:03 Lymph % (Auto) 18.4 % (13.4-35.0) 12/25/18 06:03 [place] % (Auto) 11.9 % (0.0-7.3) H 12/25/18 06:03 Eos % (Auto) 0.1 % (0.0-4.3) 12/25/18 06:03 Baso % (Auto) 0.8 % (0.0-1.8) 12/25/18 06:03 Lymph # 1.4 K/mm3 (1.2-5.4) 12/25/18 06:03 [place] # 0.9 K/mm3 (0.0-0.8) H 12/25/18 06:03 Eos # 0.0 K/mm3 (0.0-0.4) 12/25/18 06:03 Baso # 0.1 K/mm3 (0.0-0.1) 12/25/18 06:03 Add Manual Diff Complete 12/23/18 10:55 Total Counted 100 12/23/18 10:55 Seg Neutrophils % 68.8 % (40.0-70.0) 12/25/18 06:03 Seg Neuts % (Manual) 92.0 % (40.0-70.0) H 12/23/18 10:55 0 % 12/23/18 10:55 6.0 % (13.4-35.0) L 12/23/18 10:55 Reactive Lymphs % (Man) 0 % 12/23/18 10:55 2.0 % (0.0-7.3) 12/23/18 10:55 0 % (0.0-4.3) 12/23/18 10:55 0 % (0.0-1.8) 12/23/18 10:55 0 % 12/23/18 10:55 0 % 12/23/18 10:55 0 % 12/23/18 10:55 0 % 12/23/18 10:55 Nucleated RBC % Not Reportable 12/23/18 10:55 Seg Neutrophils # 5.4 K/mm3 (1.8-7.7) 12/25/18 06:03 Seg Neutrophils # Man 14.4 K/mm3 (1.8-7.7) H 12/23/18 10:55 Band Neutrophils # 0.0 K/mm3 12/23/18 10:55 0.9 K/mm3 (1.2-5.4) L 12/23/18 10:55 Abs React Lymphs (Man) 0.0 K/mm3 12/23/18 10:55 0.3 K/mm3 (0.0-0.8) 12/23/18 10:55 0.0 K/mm3 (0.0-0.4) 12/23/18 10:55 0.0 K/mm3 (0.0-0.1) 12/23/18 10:55 0.0 K/mm3 12/23/18 10:55 0.0 K/mm3 12/23/18 10:55 0.0 K/mm3 12/23/18 10:55 Blast Cells # 0.0 K/mm3 12/23/18 10:55 WBC Morphology Not Reportable 12/23/18 10:55 Hypersegmented Neuts Not Reportable 12/23/18 10:55 Hyposegmented Neuts Not Reportable 12/23/18 10:55 Hypogranular Neuts Not Reportable 12/23/18 10:55 Not Reportable 12/23/18 10:55 Not Reportable 12/23/18 10:55 Not Reportable 12/23/18 10:55 Not Reportable 12/23/18 10:55 Not Reportable 12/23/18 10:55 Not Reportable 12/23/18 10:55 Consistent w auto 12/23/18 10:55 Not Reportable 12/23/18 10:55 Plt Clumps, EDTA Not Reportable 12/23/18 10:55 Not Reportable 12/23/18 10:55 Not Reportable 12/23/18 10:55 Not Reportable 12/23/18 10:55 Plt Morphology Comment Not Reportable 12/23/18 10:55 RBC Morphology Not Reportable 12/23/18 10:55 Dimorphic RBCs Not Reportable 12/23/18 10:55 Not Reportable 12/23/18 10:55 Not Reportable 12/23/18 10:55 Not Reportable 12/23/18 10:55 1+ 12/23/18 10:55 Not Reportable 12/23/18 10:55 Not Reportable 12/23/18 10:55 Not Reportable 12/23/18 10:55 Not Reportable 12/23/18 10:55 Not Reportable 12/23/18 10:55 Not Reportable 12/23/18 10:55 Not Reportable 12/23/18 10:55 Not Reportable 12/23/18 10:55 Not Reportable 12/23/18 10:55 Not Reportable 12/23/18 10:55 Not Reportable 12/23/18 10:55 Not Reportable 12/23/18 10:55 Not Reportable 12/23/18 10:55 Not Reportable 12/23/18 10:55 Not Reportable 12/23/18 10:55 Acanthocytes (Spur) Not Reportable 12/23/18 10:55 Rouleaux Not Reportable 12/23/18 10:55 Not Reportable 12/23/18 10:55 Not Reportable 12/23/18 10:55 Not Reportable 12/23/18 10:55 Not Reportable 12/23/18 10:55 Hem Pathologist Commnt No 12/23/18 10:55 VBG pH 7.333 (7.320-7.420) 12/23/18 11:13 Sodium 137 mmol/L (137-145) 12/25/18 06:03 Potassium 3.2 mmol/L (3.6-5.0) L 12/25/18 06:03 Chloride 94.4 mmol/L (98-107) L 12/25/18 06:03 Carbon Dioxide 31 mmol/L (22-30) H 12/25/18 06:03 15 mmol/L 12/25/18 06:03 BUN 8 mg/dL (7-17) 12/25/18 06:03 0.5 mg/dL (0.7-1.2) L 12/25/18 06:03 Estimated GFR > 60 ml/min 12/25/18 06:03 16 % 12/25/18 06:03 Glucose 187 mg/dL (65-100) H 12/25/18 06:03 POC Glucose 169 (70-105) H 12/25/18 16:47 Lactic Acid 1.10 mmol/L (0.7-2.0) 12/23/18 20:07 Calcium 9.2 mg/dL (8.4-10.2) 12/25/18 06:03 Magnesium 1.60 mg/dL (1.7-2.3) L 12/24/18 00:41 0.30 mg/dL (0.1-1.2) 12/23/18 10:55 AST 8 units/L (5-40) 12/23/18 10:55 ALT 14 units/L (7-56) 12/23/18 10:55 114 units/L (35-129) 12/23/18 10:55 65.0 umol/L (25-60) H 12/23/18 10:55 152 units/L (30-135) H 12/23/18 10:55 6.5 g/dL (6.3-8.2) 12/23/18 10:55 4.1 g/dL (3.9-5) 12/23/18 10:55 1.7 % 12/23/18 10:55 TSH 0.007 mlU/mL (0.270-4.200) L 12/23/18 10:55 Free T4 1.89 ng/dL (0.76-1.46) H 12/23/18 10:55 Yellow (Yellow) 12/23/18 10:30 Slightly-cloudy (Clear) 12/23/18 10:30 6.0 (5.0-7.0) 12/23/18 10:30 Ur Specific [place] 1.015 (1.003-1.030) 12/23/18 10:30 >500 mg/dL (Negative) 12/23/18 10:30 50 mg/dL (Negative) 12/23/18 10:30 Tr mg/dL (Negative) 12/23/18 10:30 Neg (Negative) 12/23/18 10:30 Neg (Negative) 12/23/18 10:30 Neg (Negative) 12/23/18 10:30 < 2.0 mg/dL (<2.0) 12/23/18 10:30 Ur Leukocyte Esterase Neg (Negative) 12/23/18 10:30 3.0 /HPF (0.0-6.0) 12/23/18 10:30 6.0 /HPF (0.0-6.0) 12/23/18 10:30 U Epithel Cells (Auto) 1.0 /HPF (0-13.0) 12/23/18 10:30 1+ /HPF (Negative) 12/23/18 10:30 Few /HPF 12/23/18 10:30 Presumptive negative 12/23/18 10:30 Presumptive negative 12/23/18 10:30 Ur Barbiturates Screen Presumptive negative 12/23/18 10:30 Ur Phencyclidine Scrn Presumptive negative 12/23/18 10:30 Ur Amphetamines Screen Presumptive negative 12/23/18 10:30 U Benzodiazepines Scrn Presumptive positive 12/23/18 10:30 Presumptive negative 12/23/18 10:30 U Marijuana (THC) Screen Presumptive negative 12/23/18 10:30 Disclamer 12/23/18 10:30 Plasma/Serum Alcohol < 0.01 % (0-0.07) 12/23/18 10:55 Active Medications - Current Medications Current Medications: Generic Name Dose Route Start Last Admin Trade Name Freq PRN Reason Stop Dose Admin Acetaminophen 650 mg 12/25/18 04:00 Tylenol PO Q4H PRN Pain MILD(1-3)/Fever >100.5/FLORES Acetaminophen 650 mg 12/25/18 13:50 12/25/18 13:58 Tylenol IA 650 mg Q4H PRN Administration Pain, Mild (1-3) Amlodipine Besylate 5 mg 12/24/18 10:00 12/25/18 10:39 Norvasc PO 5 mg DAILY AKASH Administration Dextrose 50 ml 12/23/18 13:42 D50w (25gm) Syringe IV PRN PRN Hypoglycemia Duloxetine HCl 30 mg 12/23/18 22:00 12/25/18 10:37 Cymbalta PO 30 mg BID AKASH Administration Enoxaparin Sodium 40 mg 12/23/18 22:00 12/24/18 23:01 Lovenox SUB-Q 40 mg QDAY@2200 AKASH Administration Ferrous Sulfate 308 mg 12/25/18 10:00 12/25/18 11:00 Ferrous Sulfate PO 308 mg QDAY AKASH Administration Levofloxacin/Dextrose 750 mg in 150 mls @ 100 mls/hr 12/24/18 10:00 12/25/18 10:38 Levaquin 750mg/150ml IV 12/28/18 11:29 100 mls/hr Q24HR AKASH Administration Protocol Sodium Chloride 1,000 mls @ 75 mls/hr 12/24/18 18:00 12/25/18 05:48 Nacl 0.9% 1000 Ml IV 75 mls/hr DIRECT AKASH Administration Insulin Human Lispro 0 unit 12/23/18 16:30 12/25/18 12:00 Humalog SUB-Q 2 unit ACHS AKASH Administration Protocol Lansoprazole 30 mg 12/25/18 10:00 12/25/18 10:37 Prevacid Solutab FEEDTUBE 30 mg BID AKASH Administration Levetiracetam 500 mg 12/25/18 10:00 12/25/18 10:37 Keppra PO 500 mg BID AKASH Administration Levothyroxine Sodium 100 mcg 12/25/18 06:00 12/25/18 05:32 Synthroid PO 100 mcg DAILY@0600 AKASH Administration Lorazepam 1 mg 12/24/18 17:29 12/25/18 14:23 Ativan IV 1 mg Q4H PRN Administration Agitation Multivitamins 5 ml 12/25/18 10:00 12/25/18 11:00 Centrum Liq PO 5 ml QDAY AKASH Administration Ondansetron HCl 4 mg 12/23/18 13:27 12/24/18 09:28 Zofran IV 4 mg Q8H PRN Administration Nausea And Vomiting Sodium Chloride 10 ml 12/23/18 22:00 12/25/18 10:40 Sodium Chloride Flush Syringe 10 Ml IV 10 ml BID AKASH Administration Sodium Chloride 10 ml 12/23/18 13:27 Sodium Chloride Flush Syringe 10 Ml IV PRN PRN LINE FLUSH Nutrition/Malnutrition Assess - Dietary Evaluation Nutrition/Malnutrition Findings: Nutrition Notes Start: 12/24/18 10:03 Freq: Status: Active Protocol: Document 12/24/18 10:03 BRODERICK (Rec: 12/24/18 11:21 KS [id number]) Co-Sign 12/24/18 10:03 LP Nutrition Notes Need for Assessment generated from: MST Initial or Follow up Assessment Current Diagnosis COPD,Diabetes,Hypertension Other Pertinent Diagnosis CVA, Debility, Seizures, Encephalopathy, SIRS Current Diet Cardiac Diet Labs/Tests K - 3.0 Mag - 1.6 POC Glu - 161 Pertinent Medications Reviewed Height 5 ft 6 in Weight 104 kg Usual Body Weight 99.337 kg [place] Body Weight (kg) 59.09 BMI 37.0 Intake Prior to Admission Poor Weight Status Obese Subjective/Other Information Pt screen for skin risk. 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 Family reports pt typically does not eat solids but will drink padmini reba. Pt did not eat off tray this morning. Pt says medications decrease her appetite. Offered ONS but pt did not think she could drink anything. Pt reports 10 lbs wt loss over past 2-3 weeks with a UBW of 219lbs. 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 No Is Patient Ambulatory and/or Out of Bed No REE-([facility]-confined to bed) 1879.860 Kcal/Kg value to use for calculation 15 Approximate Energy Requirements Using 1560 kcal/Kg Calculation Used for Recommendations Kcal/kg Additional Notes PRO needs: 98-122g (1.2-1.5g/ kg/day using AdBW of 81.5kg) Fluid needs: 1ml/kcal Nutrition Intervention Change Diet Order: Continue current diet Add Supplement/Snack (indicate name/kcal One Ensure Clear /protein ) Provides kCal: 240 Provides Protein (gm) 8 Goal #1 Increase intakes to meet 75% of energy and PRO needs Anticipated Discharge Needs: Cardiac/Consistent Carb Diet Follow-Up By: 12/28/18 Additional Comments Follow-up to monitor intakes
[2018-12-25] MEDS ORDERED: levETIRAcetam 500 MG/5 ML ORAL LIQD PO ONE (20:29)
[2018-12-25] MEDS ORDERED: MAGNESIUM SULFATE 3 GM in SODIUM CHLORIDE 0.9% 100 ML IV ONE (20:31)
[2018-12-25] MEDS ORDERED: POTASSIUM CHLORIDE 10 MEQ 10 MEQ/100 ML BAG IV ONE (20:32)
[2018-12-25] MEDS: ENOXAPARIN 40 MG/0.4 ML INJ SUB-Q SCH (22:34)
--- NOTE | 2018-12-26 04:44 | Consultation ---
HISTORY OF PRESENT ILLNESS: This is a 73-year-old black female that is admitted to [facility] on 12/23/2018. This patient presents to the hospital after suffering from seizures at her home. Her daughter, who was present at the bedside, gave me a history that prior to this she has not had seizures, but had a history of a number of small strokes. She also has a history of elevated blood sugars, diabetes, hypertension and a prior stroke. I have reviewed over her MRI scan of the brain with Dr. Su and she has a very subtle area of ischemia in the medial temporal lobe extending into the medial portions of the insula of the right temporal lobe and within the medial vascular distribution of branches of the right middle cerebral artery. There is no gross edema with this. The edema is fairly superficial within the cortex of the medial temporal lobe. There is no extension into the white matter. The pattern of the stroke appears to be very subacute and not associated with a complete loss of the vascular integrity in this region. The remainder of the brain scan does show moderate atrophy. I do not see any evidence of any other areas of edema or hemorrhage. This does appear to be acute as I see it on the diffusion weighted image and this was discussed with Dr. Su and we are both in agreement as to the interpretation. Seeing the patient, she does still recognize her daughter. She is responding. She is able to swallow. ALLERGIES: She has no known allergies. SOCIAL HISTORY: She lives with her daughter. She is disabled, retired. FAMILY HISTORY: Remarkable for stroke and hypertension. PHYSICAL EXAMINATION: VITAL SIGNS: On my examination, her blood pressure is 134/86, respirations 18, pulse rate is 80. NEUROLOGIC: Cranial nerves 2-12 are intact, but she does have right gaze preference and has a slight degree of diminished speech and has some visual neglect to her left side. She moves both extremities well. She is to me a little altered in terms of her ability to follow commands, seems very detached and not well focused. The remainder of the examination shows intact motor strength. No tremors or asterixis. No active seizure activity is present. Cranial nerves 2-12 are otherwise intact. I do not see any facial weakness. IMPRESSION: This patient has a very unusual pattern in the right medial temporal lobe of an area of what would appear to be a subacute stroke. I doubt that this represents a herpes vasculitis, but this should be for the differential nonetheless if she has had a fever, more typically this is a vascular stroke. I would recommend further workup including carotid ultrasound and echocardiography. PLAN: Seizure control and other means necessary to get good seizure management. It will be important to get an EEG. May require further followup CT scans. I certainly do not want to totally exclude the idea that this could be herpes encephalitis, but I am more inclined to think this is a stroke given her prior history, given her age and other factors. Nonetheless, careful monitoring will be essential. This was thoroughly explained to the daughter who is at the bedside. I explained to her the basis of the cognitive impairment the patient has. Her altered mental state is certainly based on a temporal lobe process, but it is unilateral, and therefore, should be self-contained. JOB# [id number] MOIRA/RENZO
[2018-12-26] MEDS: LEVOTHYROXINE 100 MCG TAB PO SCH (06:23)
[2018-12-26 07:37] LABS: Basophils % (Auto) 0.2 % (0.0-1.8); Hematocrit 42.9 % (30.3-42.9); Hemoglobin 14.2 gm/dl (10.1-14.3); Lymphocytes # (Auto) 1.6 K/mm3 (1.2-5.4); Mean Corpuscular HGB Conc 33 % (30-34); Mean Corpuscular Volume 87 fl (79-97); Monocytes # (Auto) 1.3 K/mm3 (0.0-0.8); Monocytes % (Auto) 12.7 % (0.0-7.3); Platelet Count 208 K/mm3 (140-440); Red Blood Count 4.94 M/mm3 (3.65-5.03)
[2018-12-26] MEDS: amLODIPine 5 MG TAB PO SCH (10:36)
[2018-12-26] MEDS: DULoxetine 30 MG CAP PO SCH ×2 (10:36→21:24)
[2018-12-26] MEDS: MULTIVITAMINS 5 ML ORAL LIQUID PO SCH (10:36)
[2018-12-26] MEDS: LANSOPRAZOLE 30 MG SOLUTAB FEEDTUBE SCH ×2 (10:38→21:24)
[2018-12-26] MEDS: LORazepam 2 MG/ML VIAL IV PRN ×2 (11:08→21:22)
--- NOTE | 2018-12-26 12:35 | Progress Note ---
Assessment and Plan Assessment and plan: Seizure disorder She continues to have seizure most likely secondary to CVA. Patient seizures uncontrolled and thus we will increase Keppra to 1000 g twice a day. Neurology following. Acute CVA. Acute ischemia of the medial temporal lobe and the area of ischemis is certainly in the temporal lobe medial portion and this clearly can produce confusion and sevre memory loss based on the area Debility Current Visit: Yes Status: Acute Plan to address problem: Disability will perform PT supportive care. We'll address underlying etiology. Which could be postictal versus CVA. Patient will need physical therapy for CVA. Encephalopathy Etiology secondary to CVA and seizure disorder. Diabetes mellitus Continue Accu-Cheks and sliding scale insulin. HTN (hypertension) Well control with medical management. Hypothyroidism Patient does not appear to be thyrotoxic storm has no signs or symptoms of hypo- or hyperthyroidism. TSH was 0.007 we'll decrease to 111. Hypomagnesemia Replete As needed Hypokalemia Replete as needed History Interval history: Patient with seizure activity this morning. Hospitalist Physical - Constitutional Vitals: Temp Pulse Resp BP Pulse Ox 98.4 F 125 H 26 H 151/85 98 12/26/18 12:00 12/26/18 10:36 12/26/18 10:11 12/26/18 10:36 12/26/18 10:11 General appearance: Present: mild distress Results - Labs CBC & Chem 7: 12/26/18 07:08 12/25/18 06:03 Labs: Laboratory Last Values WBC 9.9 K/mm3 (4.5-11.0) 12/26/18 07:08 RBC 4.94 M/mm3 (3.65-5.03) 12/26/18 07:08 Hgb 14.2 gm/dl (10.1-14.3) 12/26/18 07:08 Hct 42.9 % (30.3-42.9) 12/26/18 07:08 MCV 87 fl (79-97) 12/26/18 07:08 MCH 29 pg (28-32) 12/26/18 07:08 MCHC 33 % (30-34) 12/26/18 07:08 RDW 17.0 % (13.2-15.2) H 12/26/18 07:08 Plt Count 208 K/mm3 (140-440) 12/26/18 07:08 Lymph % (Auto) 16.0 % (13.4-35.0) 12/26/18 07:08 [place] % (Auto) 12.7 % (0.0-7.3) H 12/26/18 07:08 Eos % (Auto) 0.0 % (0.0-4.3) 12/26/18 07:08 Baso % (Auto) 0.2 % (0.0-1.8) 12/26/18 07:08 Lymph # 1.6 K/mm3 (1.2-5.4) 12/26/18 07:08 [place] # 1.3 K/mm3 (0.0-0.8) H 12/26/18 07:08 Eos # 0.0 K/mm3 (0.0-0.4) 12/26/18 07:08 Baso # 0.0 K/mm3 (0.0-0.1) 12/26/18 07:08 Add Manual Diff Complete 12/23/18 10:55 Total Counted 100 12/23/18 10:55 Seg Neutrophils % 71.1 % (40.0-70.0) H 12/26/18 07:08 Seg Neuts % (Manual) 92.0 % (40.0-70.0) H 12/23/18 10:55 0 % 12/23/18 10:55 6.0 % (13.4-35.0) L 12/23/18 10:55 Reactive Lymphs % (Man) 0 % 12/23/18 10:55 2.0 % (0.0-7.3) 12/23/18 10:55 0 % (0.0-4.3) 12/23/18 10:55 0 % (0.0-1.8) 12/23/18 10:55 0 % 12/23/18 10:55 0 % 12/23/18 10:55 0 % 12/23/18 10:55 0 % 12/23/18 10:55 Nucleated RBC % Not Reportable 12/23/18 10:55 Seg Neutrophils # 7.0 K/mm3 (1.8-7.7) 12/26/18 07:08 Seg Neutrophils # Man 14.4 K/mm3 (1.8-7.7) H 12/23/18 10:55 Band Neutrophils # 0.0 K/mm3 12/23/18 10:55 0.9 K/mm3 (1.2-5.4) L 12/23/18 10:55 Abs React Lymphs (Man) 0.0 K/mm3 12/23/18 10:55 0.3 K/mm3 (0.0-0.8) 12/23/18 10:55 0.0 K/mm3 (0.0-0.4) 12/23/18 10:55 0.0 K/mm3 (0.0-0.1) 12/23/18 10:55 0.0 K/mm3 12/23/18 10:55 0.0 K/mm3 12/23/18 10:55 0.0 K/mm3 12/23/18 10:55 Blast Cells # 0.0 K/mm3 12/23/18 10:55 WBC Morphology Not Reportable 12/23/18 10:55 Hypersegmented Neuts Not Reportable 12/23/18 10:55 Hyposegmented Neuts Not Reportable 12/23/18 10:55 Hypogranular Neuts Not Reportable 12/23/18 10:55 Not Reportable 12/23/18 10:55 Not Reportable 12/23/18 10:55 Not Reportable 12/23/18 10:55 Not Reportable 12/23/18 10:55 Not Reportable 12/23/18 10:55 Not Reportable 12/23/18 10:55 Consistent w auto 12/23/18 10:55 Not Reportable 12/23/18 10:55 Plt Clumps, EDTA Not Reportable 12/23/18 10:55 Not Reportable 12/23/18 10:55 Not Reportable 12/23/18 10:55 Not Reportable 12/23/18 10:55 Plt Morphology Comment Not Reportable 12/23/18 10:55 RBC Morphology Not Reportable 12/23/18 10:55 Dimorphic RBCs Not Reportable 12/23/18 10:55 Not Reportable 12/23/18 10:55 Not Reportable 12/23/18 10:55 Not Reportable 12/23/18 10:55 1+ 12/23/18 10:55 Not Reportable 12/23/18 10:55 Not Reportable 12/23/18 10:55 Not Reportable 12/23/18 10:55 Not Reportable 12/23/18 10:55 Not Reportable 12/23/18 10:55 Not Reportable 12/23/18 10:55 Not Reportable 12/23/18 10:55 Not Reportable 12/23/18 10:55 Not Reportable 12/23/18 10:55 Not Reportable 12/23/18 10:55 Not Reportable 12/23/18 10:55 Not Reportable 12/23/18 10:55 Not Reportable 12/23/18 10:55 Not Reportable 12/23/18 10:55 Not Reportable 12/23/18 10:55 Acanthocytes (Spur) Not Reportable 12/23/18 10:55 Rouleaux Not Reportable 12/23/18 10:55 Not Reportable 12/23/18 10:55 Not Reportable 12/23/18 10:55 Not Reportable 12/23/18 10:55 Not Reportable 12/23/18 10:55 Hem Pathologist Commnt No 12/23/18 10:55 VBG pH 7.333 (7.320-7.420) 12/23/18 11:13 Sodium 137 mmol/L (137-145) 12/25/18 06:03 Potassium 3.2 mmol/L (3.6-5.0) L 12/25/18 06:03 Chloride 94.4 mmol/L (98-107) L 12/25/18 06:03 Carbon Dioxide 31 mmol/L (22-30) H 12/25/18 06:03 15 mmol/L 12/25/18 06:03 BUN 8 mg/dL (7-17) 12/25/18 06:03 0.5 mg/dL (0.7-1.2) L 12/25/18 06:03 Estimated GFR > 60 ml/min 12/25/18 06:03 16 % 12/25/18 06:03 Glucose 187 mg/dL (65-100) H 12/25/18 06:03 POC Glucose 178 (70-105) H 12/25/18 22:00 Lactic Acid 1.10 mmol/L (0.7-2.0) 12/23/18 20:07 Calcium 9.2 mg/dL (8.4-10.2) 12/25/18 06:03 Magnesium 1.60 mg/dL (1.7-2.3) L 12/24/18 00:41 0.30 mg/dL (0.1-1.2) 12/23/18 10:55 AST 8 units/L (5-40) 12/23/18 10:55 ALT 14 units/L (7-56) 12/23/18 10:55 114 units/L (35-129) 12/23/18 10:55 65.0 umol/L (25-60) H 12/23/18 10:55 152 units/L (30-135) H 12/23/18 10:55 6.5 g/dL (6.3-8.2) 12/23/18 10:55 4.1 g/dL (3.9-5) 12/23/18 10:55 1.7 % 12/23/18 10:55 TSH 0.007 mlU/mL (0.270-4.200) L 12/23/18 10:55 Free T4 1.89 ng/dL (0.76-1.46) H 12/23/18 10:55 Yellow (Yellow) 12/23/18 10:30 Slightly-cloudy (Clear) 12/23/18 10:30 6.0 (5.0-7.0) 12/23/18 10:30 Ur Specific [place] 1.015 (1.003-1.030) 12/23/18 10:30 >500 mg/dL (Negative) 12/23/18 10:30 50 mg/dL (Negative) 12/23/18 10:30 Tr mg/dL (Negative) 12/23/18 10:30 Neg (Negative) 12/23/18 10:30 Neg (Negative) 12/23/18 10:30 Neg (Negative) 12/23/18 10:30 < 2.0 mg/dL (<2.0) 12/23/18 10:30 Ur Leukocyte Esterase Neg (Negative) 12/23/18 10:30 3.0 /HPF (0.0-6.0) 12/23/18 10:30 6.0 /HPF (0.0-6.0) 12/23/18 10:30 U Epithel Cells (Auto) 1.0 /HPF (0-13.0) 12/23/18 10:30 1+ /HPF (Negative) 12/23/18 10:30 Few /HPF 12/23/18 10:30 Presumptive negative 12/23/18 10:30 Presumptive negative 12/23/18 10:30 Ur Barbiturates Screen Presumptive negative 12/23/18 10:30 Ur Phencyclidine Scrn Presumptive negative 12/23/18 10:30 Ur Amphetamines Screen Presumptive negative 12/23/18 10:30 U Benzodiazepines Scrn Presumptive positive 12/23/18 10:30 Presumptive negative 12/23/18 10:30 U Marijuana (THC) Screen Presumptive negative 12/23/18 10:30 Disclamer 12/23/18 10:30 Plasma/Serum Alcohol < 0.01 % (0-0.07) 12/23/18 10:55 Active Medications - Current Medications Current Medications: Generic Name Dose Route Start Last Admin Trade Name Freq PRN Reason Stop Dose Admin Acetaminophen 650 mg 12/25/18 04:00 Tylenol PO Q4H PRN Pain MILD(1-3)/Fever >100.5/FLORES Acetaminophen 650 mg 12/25/18 13:50 12/25/18 13:58 Tylenol SD 650 mg Q4H PRN Administration Pain, Mild (1-3) Amlodipine Besylate 5 mg 12/24/18 10:00 12/26/18 10:36 Norvasc PO 5 mg DAILY AKASH Administration Dextrose 50 ml 12/23/18 13:42 D50w (25gm) Syringe IV PRN PRN Hypoglycemia Duloxetine HCl 30 mg 12/23/18 22:00 12/26/18 10:36 Cymbalta PO 30 mg BID AKASH Administration Enoxaparin Sodium 40 mg 12/23/18 22:00 12/25/18 22:34 Lovenox SUB-Q 40 mg QDAY@2200 AKASH Administration Ferrous Sulfate 308 mg 12/25/18 10:00 12/25/18 11:00 Ferrous Sulfate PO 308 mg QDAY AKASH Administration Levofloxacin/Dextrose 750 mg in 150 mls @ 100 mls/hr 12/24/18 10:00 12/26/18 10:39 Levaquin 750mg/150ml IV 12/28/18 11:29 100 mls/hr Q24HR AKAHS Administration Protocol Sodium Chloride 1,000 mls @ 75 mls/hr 12/24/18 18:00 12/25/18 22:17 Nacl 0.9% 1000 Ml IV 75 mls/hr DIRECT AKASH Administration Insulin Human Lispro 0 unit 12/23/18 16:30 12/25/18 22:33 Humalog SUB-Q Not Given ACHS [facility] Protocol Lansoprazole 30 mg 12/25/18 10:00 12/26/18 10:38 Prevacid Solutab FEEDTUBE 30 mg BID AKASH Administration Levothyroxine Sodium 100 mcg 12/25/18 06:00 12/26/18 06:23 Synthroid PO Not Given DAILY@0600 AKASH Lorazepam 1 mg 12/24/18 17:29 12/26/18 11:08 Ativan IV 1 mg Q4H PRN Administration Agitation Multivitamins 5 ml 12/25/18 10:00 12/26/18 10:36 Centrum Liq PO 5 ml QDAY AKASH Administration Ondansetron HCl 4 mg 12/23/18 13:27 12/24/18 09:28 Zofran IV 4 mg Q8H PRN Administration Nausea And Vomiting Sodium Chloride 10 ml 12/23/18 22:00 12/25/18 22:17 Sodium Chloride Flush Syringe 10 Ml IV 10 ml BID AKASH Administration Sodium Chloride 10 ml 12/23/18 13:27 Sodium Chloride Flush Syringe 10 Ml IV PRN PRN LINE FLUSH Nutrition/Malnutrition Assess - Dietary Evaluation Nutrition/Malnutrition Findings: Nutrition Notes Start: 12/24/18 10:03 Freq: Status: Active Protocol: Document 12/24/18 10:03 NV (Rec: 12/24/18 11:21 KS [id number]) Co-Sign 12/24/18 10:03 LP Nutrition Notes Need for Assessment generated from: [facility] Initial or Follow up Assessment Current Diagnosis COPD,Diabetes,Hypertension Other Pertinent Diagnosis CVA, Debility, Seizures, Encephalopathy, SIRS Current Diet Cardiac Diet Labs/Tests K - 3.0 Mag - 1.6 POC Glu - 161 Pertinent Medications Reviewed Height 5 ft 6 in Weight 104 kg Usual Body Weight 99.337 kg [place] Body Weight (kg) 59.09 BMI 37.0 Intake Prior to Admission Poor Weight Status Obese Subjective/Other Information Pt screen for skin risk. Pt reports having poor appetite and did not eat 2 days [employer]. Family reports pt typically does not eat solids but will drink padmini reba. Pt did not eat off tray this morning. Pt says medications decrease her appetite. Offered ONS but pt did not think she could drink anything. Pt reports 10 lbs wt loss over past 2-3 weeks with a UBW of 219lbs. Burn Absent Trauma Absent Food Allergy No Current % PO Negligible Minimum of two criteria Yes Energy Intake (severe) < or equal to 50% Estimated Energy Requirement > or equal to 5 days Fluid Accumulation Moderate to Severe (severe) Reduced [place] Strength Measurably Reduced (severe) #1 Nutrition Diagnosis Malnutrition Etiology decreased appetite As Evidenced by Signs and Symptoms pt meeting less than 50% of energy and protein needs, fluid accumulation, unable to perform wound care rn strength Is patient on ventilator? No Is Patient Ambulatory and/or Out of Bed No REE-([facility]-confined to bed) 1879.860 Kcal/Kg value to use for calculation 15 Approximate Energy Requirements Using 1560 kcal/Kg Calculation Used for Recommendations Kcal/kg Additional Notes PRO needs: 98-122g (1.2-1.5g/ kg/day using AdBW of 81.5kg) Fluid needs: 1ml/kcal Nutrition Intervention Change Diet Order: Continue current diet Add Supplement/Snack (indicate name/kcal One Ensure Clear /protein ) Provides kCal: 240 Provides Protein (gm) 8 Goal #1 Increase intakes to meet 75% of energy and PRO needs Anticipated Discharge Needs: Cardiac/Consistent Carb Diet Follow-Up By: 12/28/18 Additional Comments Follow-up to monitor intakes
[2018-12-26] MEDS: ACETAMINOPHEN 325 MG/10.15 ML ORAL LIQD UNIT DOSE PO PRN (21:23)
[2018-12-26] MEDS: ENOXAPARIN 40 MG/0.4 ML INJ SUB-Q SCH (21:24)
[2018-12-26] MEDS: INSULIN LISPRO 100 UNIT/ML SUB-Q SCH (21:24)
[2018-12-26 22:22] LABS: Alanine Aminotransferase 6 units/L (7-56); Albumin 3.4 g/dL (3.9-5); BUN/Creatinine Ratio 23; Blood Urea Nitrogen 14 mg/dL (7-17); Calcium 8.9 mg/dL (8.4-10.2); Hemolysis Index 6
[2018-12-27] MEDS: levETIRAcetam 1,000 MG in DEXTROSE 5% IN WATER 100 ML IV SCH ×3 (02:15→14:02)
[2018-12-27] MEDS: LORazepam 2 MG/ML VIAL IV PRN ×2 (08:12→17:53)
[2018-12-27] MEDS: SODIUM CHLORIDE 0.9% 1000 ML 1,000 ML IV SCH ×2 (08:14→22:49)
[2018-12-27] MEDS: INSULIN LISPRO 100 UNIT/ML SUB-Q SCH ×4 (08:22→23:34)
[2018-12-27] MEDS: FERROUS SULFATE 308 MG (62mg Elemental Iron) / 7 ML ELIXIR PO SCH ×2 (08:24→11:43)
--- NOTE | 2018-12-27 10:27 | Consultation ---
History of Present Illness Consult date: 12/27/18 History of present illness: saw the note about more seizures she was on keppra I have added IV vimpat at the appropriate dose for the patient and will recheck the CT of brain to assess the area noted on prior MRI I noted by exam seizures have stopped but she is post ictal and difficult to arouse see orders will continue to follow Past History Past Medical History: arthritis, diabetes, GERD, hypertension, hypothyroidism, other (Asthma) Past Surgical History: No surgical history, Other (reviewed) Social history: single, lives with family. denies: smoking, alcohol abuse, prescription drug abuse Family history: hypertension Medications and Allergies Allergies Allergy/AdvReac Type Severity Reaction Status Date / Time No Known Allergies Allergy Unverified 02/16/13 00:01 Home Medications Medication Instructions Recorded Confirmed Last Taken Type Insulin Detemir [Levemir Flexpen] 5 unit SC HS 02/16/13 12/23/18 12/22/18 History Insulin Aspart [NovoLOG 100 100 unit SQ AC PRN #1 bottle 03/15/13 12/23/18 12/22/18 Rx UNITS/ML VIAL] Multivitamin Tab [Multiple Vitamin 1 each PO QDAY #30 tablet 03/15/13 12/23/18 12/22/18 Rx TAB (Theragran)] glipiZIDE [Glipizide Xl] 2.5 mg PO QAM #30 tab.er.24 03/15/13 12/23/18 12/22/18 Rx glipiZIDE [Glipizide Xl] 5 mg PO QAM #30 tab.er.24 03/15/13 12/23/18 12/22/18 Rx DULoxetine [Cymbalta] 30 mg PO BID 12/23/18 12/23/18 12/22/18 History Ferrous Sulfate [Iron 325 MG] 325 mg PO QDAY 12/23/18 12/23/18 12/22/18 History Levothyroxine [Synthroid] 125 mcg PO QAM 12/23/18 12/23/18 12/22/18 History Pantoprazole [Protonix] 40 mg PO BID 12/23/18 12/23/18 12/22/18 History amLODIPine [Norvasc] 5 mg PO DAILY 12/23/18 12/23/18 12/22/18 History Active Meds: Active Medications Acetaminophen (Tylenol) 650 mg PO Q4H PRN PRN Reason: Pain MILD(1-3)/Fever >100.5/FLORES Last Admin: 12/26/18 21:23 Dose: 650 mg Documented by: Acetaminophen (Tylenol) 650 mg ND Q4H PRN PRN Reason: Pain, Mild (1-3) Last Admin: 12/25/18 13:58 Dose: 650 mg Documented by: Amlodipine Besylate (Norvasc) 5 mg PO DAILY [facility] Last Admin: 12/26/18 10:36 Dose: 5 mg Documented by: Dextrose (D50w (25gm) Syringe) 50 ml IV PRN PRN PRN Reason: Hypoglycemia Duloxetine HCl (Cymbalta) 30 mg PO BID [facility] Last Admin: 12/26/18 21:24 Dose: 30 mg Documented by: Enoxaparin Sodium (Lovenox) 40 mg SUB-Q QDAY@2200 [facility] Last Admin: 12/26/18 21:24 Dose: 40 mg Documented by: Ferrous Sulfate (Ferrous Sulfate) 308 mg PO QDAY [facility] Last Admin: 12/27/18 08:24 Dose: Not Given Documented by: Levofloxacin/Dextrose (Levaquin 750mg/150ml) 750 mg in 150 mls @ 100 mls/hr IV Q24HR [facility]; Protocol Stop: 12/28/18 11:29 Last Admin: 12/27/18 09:37 Dose: 100 mls/hr Documented by: Sodium Chloride (Nacl 0.9% 1000 Ml) 1,000 mls @ 75 mls/hr IV DIRECT [facility] Last Admin: 12/27/18 08:14 Dose: 75 mls/hr Documented by: Levetiracetam 1,000 mg/ (Dextrose) 110 mls @ 400 mls/hr IV Q12H [facility] Last Admin: 12/27/18 02:15 Dose: 400 mls/hr Documented by: Lacosamide 100 mg/ Sodium (Chloride) 110 mls @ 100 mls/hr IV Q12H [facility] Insulin Human Lispro (Humalog) 0 unit SUB-Q ACHS [facility]; Protocol Last Admin: 12/27/18 08:22 Dose: Not Given Documented by: Lansoprazole (Prevacid Solutab) 30 mg FEEDTUBE BID [facility] Last Admin: 12/26/18 21:24 Dose: 30 mg Documented by: Levothyroxine Sodium (Synthroid) 100 mcg PO DAILY@0600 [facility] Last Admin: 12/26/18 06:23 Dose: Not Given Documented by: Lorazepam (Ativan) 1 mg IV Q4H PRN PRN Reason: Agitation Last Admin: 12/27/18 08:12 Dose: 1 mg Documented by: Multivitamins (Centrum Liq) 5 ml PO QDAY [facility] Last Admin: 12/26/18 10:36 Dose: 5 ml Documented by: Ondansetron HCl (Zofran) 4 mg IV Q8H PRN PRN Reason: Nausea And Vomiting Last Admin: 12/24/18 09:28 Dose: 4 mg Documented by: Sodium Chloride (Sodium Chloride Flush Syringe 10 Ml) 10 ml IV BID [facility] Last Admin: 12/27/18 08:24 Dose: Not Given Documented by: Sodium Chloride (Sodium Chloride Flush Syringe 10 Ml) 10 ml IV PRN PRN PRN Reason: LINE FLUSH Physical Examination - Vital Signs Vital Signs: Vital Signs Pulse Resp Pulse Ox 82 15 95 12/23/18 07:46 12/23/18 07:46 12/23/18 07:46 Results - Laboratory Findings CBC and BMP: 12/26/18 07:08 12/26/18 21:39 Abnormal Lab Findings: Abnormal Labs 12/23/18 12/23/18 12/23/18 10:55 10:55 10:55 WBC 15.6 H RDW 18.2 H [place] % (Auto) [place] # Seg Neutrophils % Seg Neuts % (Manual) 92.0 H Lymphocytes % (Manual) 6.0 L Seg Neutrophils # Man 14.4 H Lymphocytes # (Manual) 0.9 L Potassium Chloride Carbon Dioxide BUN 5 L Creatinine 0.5 L Glucose 184 H POC Glucose Lactic Acid Magnesium ALT Ammonia 65.0 H Total Creatine Kinase Albumin TSH Free T4 12/23/18 12/23/18 12/23/18 10:55 10:55 10:55 WBC RDW [place] % (Auto) [place] # Seg Neutrophils % Seg Neuts % (Manual) Lymphocytes % (Manual) Seg Neutrophils # Man Lymphocytes # (Manual) Potassium Chloride Carbon Dioxide BUN Creatinine Glucose POC Glucose Lactic Acid Magnesium ALT Ammonia Total Creatine Kinase 152 H Albumin TSH 0.007 L Free T4 1.89 H 12/23/18 12/23/18 12/23/18 11:09 13:41 16:55 WBC RDW [place] % (Auto) [place] # Seg Neutrophils % Seg Neuts % (Manual) Lymphocytes % (Manual) Seg Neutrophils # Man Lymphocytes # (Manual) Potassium Chloride Carbon Dioxide BUN Creatinine Glucose POC Glucose 203 H 201 H Lactic Acid 2.20 H* Magnesium ALT Ammonia Total Creatine Kinase Albumin TSH Free T4 12/23/18 12/24/18 12/24/18 21:29 00:41 08:05 WBC RDW [place] % (Auto) [place] # Seg Neutrophils % Seg Neuts % (Manual) Lymphocytes % (Manual) Seg Neutrophils # Man Lymphocytes # (Manual) Potassium 3.0 L D Chloride Carbon Dioxide BUN Creatinine Glucose POC Glucose 161 H 161 H Lactic Acid Magnesium 1.60 L ALT Ammonia Total Creatine Kinase Albumin TSH Free T4 12/24/18 12/24/18 12/24/18 11:41 16:31 21:54 WBC RDW [place] % (Auto) [place] # Seg Neutrophils % Seg Neuts % (Manual) Lymphocytes % (Manual) Seg Neutrophils # Man Lymphocytes # (Manual) Potassium Chloride Carbon Dioxide BUN Creatinine Glucose POC Glucose 199 H 146 H 178 H Lactic Acid Magnesium ALT Ammonia Total Creatine Kinase Albumin TSH Free T4 12/25/18 12/25/18 12/25/18 06:03 06:03 07:19 WBC RDW 17.4 H [place] % (Auto) 11.9 H Huntington # 0.9 H Seg Neutrophils % Seg Neuts % (Manual) Lymphocytes % (Manual) Seg Neutrophils # Man Lymphocytes # (Manual) Potassium 3.2 L Chloride 94.4 L Carbon Dioxide 31 H BUN Creatinine 0.5 L Glucose 187 H POC Glucose 170 H Lactic Acid Magnesium ALT Ammonia Total Creatine Kinase Albumin TSH Free T4 12/25/18 12/25/18 12/25/18 11:40 16:47 22:00 WBC RDW [place] % (Auto) [place] # Seg Neutrophils % Seg Neuts % (Manual) Lymphocytes % (Manual) Seg Neutrophils # Man Lymphocytes # (Manual) Potassium Chloride Carbon Dioxide BUN Creatinine Glucose POC Glucose 188 H 169 H 178 H Lactic Acid Magnesium ALT Ammonia Total Creatine Kinase Albumin TSH Free T4 12/26/18 12/26/18 12/26/18 07:08 08:24 11:41 WBC RDW 17.0 H [place] % (Auto) 12.7 H [place] # 1.3 H Seg Neutrophils % 71.1 H Seg Neuts % (Manual) Lymphocytes % (Manual) Seg Neutrophils # Man Lymphocytes # (Manual) Potassium Chloride Carbon Dioxide BUN Creatinine Glucose POC Glucose 179 H 221 H Lactic Acid Magnesium ALT Ammonia Total Creatine Kinase Albumin TSH Free T4 12/26/18 12/26/18 12/26/18 16:39 20:42 21:39 WBC RDW [place] % (Auto) [place] # Seg Neutrophils % Seg Neuts % (Manual) Lymphocytes % (Manual) Seg Neutrophils # Man Lymphocytes # (Manual) Potassium 3.2 L Chloride 92.8 L Carbon Dioxide BUN Creatinine 0.6 L Glucose 222 H POC Glucose 239 H 212 H Lactic Acid Magnesium ALT 6 L Ammonia Total Creatine Kinase Albumin 3.4 L TSH Free T4
--- NOTE | 2018-12-27 11:19 | XRay Report ---
ABDOMEN 12/27/2018 INDICATION / CLINICAL INFORMATION: confirmation of dobhoff. COMPARISON: None available. FINDINGS: The feeding tube is located in the mid stomach. The radiopaque distal tip is directed to the left kei e. Signer Name: Galdino Jimenez MD Signed: 12/27/2018 11:14 AM Workstation Name: [id number]
--- NOTE | 2018-12-27 11:24 | Progress Note ---
Assessment and Plan Assessment and plan: Seizure disorder She continues to have seizure most likely secondary to CVA. Patient seizures continue to be uncontrolled and thus neurology added Vimpat Acute CVA. Acute ischemia of the medial temporal lobe and the area of ischemis is certainly in the temporal lobe medial portion and this clearly can produce confusion and sevre memory loss based on the area Debility will perform PT supportive care. We'll address underlying etiology. Encephalopathy Etiology secondary to CVA and seizure disorder. Diabetes mellitus Continue Accu-Cheks and sliding scale insulin. HTN (hypertension) Well control with medical management. Hypothyroidism Synthroid as needed Hypomagnesemia Replete As needed Hypokalemia Replete as needed The high probability of a clinically significant, sudden or life threatening deterioration of the [neurological] system(s) required my full and direct attention, intervention and personal management. The aggregate critical care time was [32] minutes. This time is in addition to time spent performing reported procedures but includes the following: [x] Data Review and interpretation [x] Patient assessment and monitoring of vital signs [x] Documentation [x] Medication orders and management History Interval history: Patient with seizure activity again this morning at 9:15 AM resolved with Ativan. Hospitalist Physical - Constitutional Vitals: Temp Pulse Resp BP Pulse Ox 99.4 F 110 H 19 141/72 98 12/27/18 08:00 12/27/18 07:30 12/27/18 07:30 12/27/18 07:30 12/27/18 08:44 General appearance: Present: mild distress - EENT Eyes: Present: PERRL, EOM intact ENT: hearing intact, clear oral mucosa, dentition normal - Neck Neck: Present: supple, normal ROM - Respiratory Respiratory effort: normal Respiratory: bilateral: CTA - Cardiovascular Rhythm: regular Heart Sounds: Present: S1 & S2. Absent: gallop, rub - Extremities Extremities: no ischemia, No edema, Full ROM - Abdominal General gastrointestinal: soft, non-tender, non-distended, normal bowel sounds - Integumentary Integumentary: Present: clear, warm, dry - Neurologic Neurologic: CNII-XII intact, moves all extremities Results - Labs CBC & Chem 7: 12/26/18 07:08 12/26/18 21:39 Labs: Laboratory Last Values WBC 9.9 K/mm3 (4.5-11.0) 12/26/18 07:08 RBC 4.94 M/mm3 (3.65-5.03) 12/26/18 07:08 Hgb 14.2 gm/dl (10.1-14.3) 12/26/18 07:08 Hct 42.9 % (30.3-42.9) 12/26/18 07:08 MCV 87 fl (79-97) 12/26/18 07:08 MCH 29 pg (28-32) 12/26/18 07:08 MCHC 33 % (30-34) 12/26/18 07:08 RDW 17.0 % (13.2-15.2) H 12/26/18 07:08 Plt Count 208 K/mm3 (140-440) 12/26/18 07:08 Lymph % (Auto) 16.0 % (13.4-35.0) 12/26/18 07:08 [place] % (Auto) 12.7 % (0.0-7.3) H 12/26/18 07:08 Eos % (Auto) 0.0 % (0.0-4.3) 12/26/18 07:08 Baso % (Auto) 0.2 % (0.0-1.8) 12/26/18 07:08 Lymph # 1.6 K/mm3 (1.2-5.4) 12/26/18 07:08 [place] # 1.3 K/mm3 (0.0-0.8) H 12/26/18 07:08 Eos # 0.0 K/mm3 (0.0-0.4) 12/26/18 07:08 Baso # 0.0 K/mm3 (0.0-0.1) 12/26/18 07:08 Add Manual Diff Complete 12/23/18 10:55 Total Counted 100 12/23/18 10:55 Seg Neutrophils % 71.1 % (40.0-70.0) H 12/26/18 07:08 Seg Neuts % (Manual) 92.0 % (40.0-70.0) H 12/23/18 10:55 0 % 12/23/18 10:55 6.0 % (13.4-35.0) L 12/23/18 10:55 Reactive Lymphs % (Man) 0 % 12/23/18 10:55 2.0 % (0.0-7.3) 12/23/18 10:55 0 % (0.0-4.3) 12/23/18 10:55 0 % (0.0-1.8) 12/23/18 10:55 0 % 12/23/18 10:55 0 % 12/23/18 10:55 0 % 12/23/18 10:55 0 % 12/23/18 10:55 Nucleated RBC % Not Reportable 12/23/18 10:55 Seg Neutrophils # 7.0 K/mm3 (1.8-7.7) 12/26/18 07:08 Seg Neutrophils # Man 14.4 K/mm3 (1.8-7.7) H 12/23/18 10:55 Band Neutrophils # 0.0 K/mm3 12/23/18 10:55 0.9 K/mm3 (1.2-5.4) L 12/23/18 10:55 Abs React Lymphs (Man) 0.0 K/mm3 12/23/18 10:55 0.3 K/mm3 (0.0-0.8) 12/23/18 10:55 0.0 K/mm3 (0.0-0.4) 12/23/18 10:55 0.0 K/mm3 (0.0-0.1) 12/23/18 10:55 0.0 K/mm3 12/23/18 10:55 0.0 K/mm3 12/23/18 10:55 0.0 K/mm3 12/23/18 10:55 Blast Cells # 0.0 K/mm3 12/23/18 10:55 WBC Morphology Not Reportable 12/23/18 10:55 Hypersegmented Neuts Not Reportable 12/23/18 10:55 Hyposegmented Neuts Not Reportable 12/23/18 10:55 Hypogranular Neuts Not Reportable 12/23/18 10:55 Not Reportable 12/23/18 10:55 Not Reportable 12/23/18 10:55 Not Reportable 12/23/18 10:55 Not Reportable 12/23/18 10:55 Not Reportable 12/23/18 10:55 Not Reportable 12/23/18 10:55 Consistent w auto 12/23/18 10:55 Not Reportable 12/23/18 10:55 Plt Clumps, EDTA Not Reportable 12/23/18 10:55 Not Reportable 12/23/18 10:55 Not Reportable 12/23/18 10:55 Not Reportable 12/23/18 10:55 Plt Morphology Comment Not Reportable 12/23/18 10:55 RBC Morphology Not Reportable 12/23/18 10:55 Dimorphic RBCs Not Reportable 12/23/18 10:55 Not Reportable 12/23/18 10:55 Not Reportable 12/23/18 10:55 Not Reportable 12/23/18 10:55 1+ 12/23/18 10:55 Not Reportable 12/23/18 10:55 Not Reportable 12/23/18 10:55 Not Reportable 12/23/18 10:55 Not Reportable 12/23/18 10:55 Not Reportable 12/23/18 10:55 Not Reportable 12/23/18 10:55 Not Reportable 12/23/18 10:55 Not Reportable 12/23/18 10:55 Not Reportable 12/23/18 10:55 Not Reportable 12/23/18 10:55 Not Reportable 12/23/18 10:55 Not Reportable 12/23/18 10:55 Not Reportable 12/23/18 10:55 Not Reportable 12/23/18 10:55 Not Reportable 12/23/18 10:55 Acanthocytes (Spur) Not Reportable 12/23/18 10:55 Rouleaux Not Reportable 12/23/18 10:55 Not Reportable 12/23/18 10:55 Not Reportable 12/23/18 10:55 Not Reportable 12/23/18 10:55 Not Reportable 12/23/18 10:55 Hem Pathologist Commnt No 12/23/18 10:55 VBG pH 7.333 (7.320-7.420) 12/23/18 11:13 Sodium 138 mmol/L (137-145) 12/26/18 21:39 Potassium 3.2 mmol/L (3.6-5.0) L 12/26/18 21:39 Chloride 92.8 mmol/L (98-107) L 12/26/18 21:39 Carbon Dioxide 28 mmol/L (22-30) 12/26/18 21:39 20 mmol/L 12/26/18 21:39 BUN 14 mg/dL (7-17) 12/26/18 21:39 0.6 mg/dL (0.7-1.2) L 12/26/18 21:39 Estimated GFR > 60 ml/min 12/26/18 21:39 23 % 12/26/18 21:39 Glucose 222 mg/dL (65-100) H 12/26/18 21:39 POC Glucose 212 (70-105) H 12/26/18 20:42 Lactic Acid 1.10 mmol/L (0.7-2.0) 12/23/18 20:07 Calcium 8.9 mg/dL (8.4-10.2) 12/26/18 21:39 Magnesium 1.60 mg/dL (1.7-2.3) L 12/24/18 00:41 0.90 mg/dL (0.1-1.2) 12/26/18 21:39 AST 13 units/L (5-40) 12/26/18 21:39 ALT 6 units/L (7-56) L 12/26/18 21:39 70 units/L (35-129) 12/26/18 21:39 65.0 umol/L (25-60) H 12/23/18 10:55 152 units/L (30-135) H 12/23/18 10:55 6.8 g/dL (6.3-8.2) 12/26/18 21:39 3.4 g/dL (3.9-5) L 12/26/18 21:39 1.0 % 12/26/18 21:39 TSH 0.007 mlU/mL (0.270-4.200) L 12/23/18 10:55 Free T4 1.89 ng/dL (0.76-1.46) H 12/23/18 10:55 Yellow (Yellow) 12/23/18 10:30 Slightly-cloudy (Clear) 12/23/18 10:30 6.0 (5.0-7.0) 12/23/18 10:30 Ur Specific [place] 1.015 (1.003-1.030) 12/23/18 10:30 >500 mg/dL (Negative) 12/23/18 10:30 50 mg/dL (Negative) 12/23/18 10:30 Tr mg/dL (Negative) 12/23/18 10:30 Neg (Negative) 12/23/18 10:30 Neg (Negative) 12/23/18 10:30 Neg (Negative) 12/23/18 10:30 < 2.0 mg/dL (<2.0) 12/23/18 10:30 Ur Leukocyte Esterase Neg (Negative) 12/23/18 10:30 3.0 /HPF (0.0-6.0) 12/23/18 10:30 6.0 /HPF (0.0-6.0) 12/23/18 10:30 U Epithel Cells (Auto) 1.0 /HPF (0-13.0) 12/23/18 10:30 1+ /HPF (Negative) 12/23/18 10:30 Few /HPF 12/23/18 10:30 Presumptive negative 12/23/18 10:30 Presumptive negative 12/23/18 10:30 Ur Barbiturates Screen Presumptive negative 12/23/18 10:30 Ur Phencyclidine Scrn Presumptive negative 12/23/18 10:30 Ur Amphetamines Screen Presumptive negative 12/23/18 10:30 U Benzodiazepines Scrn Presumptive positive 12/23/18 10:30 Presumptive negative 12/23/18 10:30 U Marijuana (THC) Screen Presumptive negative 12/23/18 10:30 Disclamer 12/23/18 10:30 Plasma/Serum Alcohol < 0.01 % (0-0.07) 12/23/18 10:55 Active Medications - Current Medications Current Medications: Generic Name Dose Route Start Last Admin Trade Name Freq PRN Reason Stop Dose Admin Acetaminophen 650 mg 12/25/18 04:00 12/26/18 21:23 Tylenol PO 650 mg Q4H PRN Administration Pain MILD(1-3)/Fever >100.5/FLORES Acetaminophen 650 mg 12/25/18 13:50 12/25/18 13:58 Tylenol [place] 650 mg Q4H PRN Administration Pain, Mild (1-3) Amlodipine Besylate 5 mg 12/24/18 10:00 12/26/18 10:36 Norvasc PO 5 mg DAILY AKASH Administration Dextrose 50 ml 12/23/18 13:42 D50w (25gm) Syringe IV PRN PRN Hypoglycemia Duloxetine HCl 30 mg 12/23/18 22:00 12/26/18 21:24 Cymbalta PO 30 mg BID AKASH Administration Enoxaparin Sodium 40 mg 12/23/18 22:00 12/26/18 21:24 Lovenox SUB-Q 40 mg QDAY@2200 AKASH Administration Ferrous Sulfate 308 mg 12/25/18 10:00 12/27/18 08:24 Ferrous Sulfate PO Not Given QDAY AKASH Levofloxacin/Dextrose 750 mg in 150 mls @ 100 mls/hr 12/24/18 10:00 12/27/18 09:37 Levaquin 750mg/150ml IV 12/28/18 11:29 100 mls/hr Q24HR AKASH Administration Protocol Sodium Chloride 1,000 mls @ 75 mls/hr 12/24/18 18:00 12/27/18 08:14 Nacl 0.9% 1000 Ml IV 75 mls/hr DIRECT AKASH Administration Levetiracetam 1,000 mg/ 110 mls @ 400 mls/hr 12/26/18 14:00 12/27/18 02:15 Dextrose IV 400 mls/hr Q12H AKASH Administration Lacosamide 100 mg/ Sodium 110 mls @ 100 mls/hr 12/27/18 11:00 Chloride IV Q12H [facility] Insulin Human Lispro 0 unit 12/23/18 16:30 12/27/18 08:22 Humalog SUB-Q Not Given ACHS [facility] Protocol Lansoprazole 30 mg 12/25/18 10:00 12/26/18 21:24 Prevacid Solutab FEEDTUBE 30 mg BID AKASH Administration Levothyroxine Sodium 100 mcg 12/25/18 06:00 12/26/18 06:23 Synthroid PO Not Given DAILY@0600 AKASH Lorazepam 1 mg 12/24/18 17:29 12/27/18 08:12 Ativan IV 1 mg Q4H PRN Administration Agitation Multivitamins 5 ml 12/25/18 10:00 12/26/18 10:36 Centrum Liq PO 5 ml QDAY AKASH Administration Ondansetron HCl 4 mg 12/23/18 13:27 12/24/18 09:28 Zofran IV 4 mg Q8H PRN Administration Nausea And Vomiting Sodium Chloride 10 ml 12/23/18 22:00 12/27/18 08:24 Sodium Chloride Flush Syringe 10 Ml IV Not Given BID AKASH Sodium Chloride 10 ml 12/23/18 13:27 Sodium Chloride Flush Syringe 10 Ml IV PRN PRN LINE FLUSH Nutrition/Malnutrition Assess - Dietary Evaluation Nutrition/Malnutrition Findings: Nutrition Notes Start: 12/24/18 10:03 Freq: Status: Active Protocol: Document 12/24/18 10:03 KS (Rec: 12/24/18 11:21 KS [id number]) Co-Sign 12/24/18 10:03 LP Nutrition Notes Need for Assessment generated from: MST Initial or Follow up Assessment Current Diagnosis COPD,Diabetes,Hypertension Other Pertinent Diagnosis CVA, Debility, Seizures, Encephalopathy, SIRS Current Diet Cardiac Diet Labs/Tests K - 3.0 Mag - 1.6 POC Glu - 161 Pertinent Medications Reviewed Height 5 ft 6 in Weight 104 kg Usual Body Weight 99.337 kg [place] Body Weight (kg) 59.09 BMI 37.0 Intake Prior to Admission Poor Weight Status Obese Subjective/Other Information Pt screen for skin risk. Pt reports having poor appetite and did not eat 2 days [employer]. Family reports pt typically does not eat solids but will drink padmini reba. Pt did not eat off tray this morning. Pt says medications decrease her appetite. Offered ONS but pt did not think she could drink anything. Pt reports 10 lbs wt loss over past 2-3 weeks with a UBW of 219lbs. 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 No Is Patient Ambulatory and/or Out of Bed No REE-([facility]-confined to bed) 1879.860 Kcal/Kg value to use for calculation 15 Approximate Energy Requirements Using 1560 kcal/Kg Calculation Used for Recommendations Kcal/kg Additional Notes PRO needs: 98-122g (1.2-1.5g/ kg/day using AdBW of 81.5kg) Fluid needs: 1ml/kcal Nutrition Intervention Change Diet Order: Continue current diet Add Supplement/Snack (indicate name/kcal One Ensure Clear /protein ) Provides kCal: 240 Provides Protein (gm) 8 Goal #1 Increase intakes to meet 75% of energy and PRO needs Anticipated Discharge Needs: Cardiac/Consistent Carb Diet Follow-Up By: 12/28/18 Additional Comments Follow-up to monitor intakes
[2018-12-27] MEDS: LACOSAMIDE 100 MG in SODIUM CHLORIDE 0.9% 100 ML IV SCH ×2 (11:30→23:23)
[2018-12-27] MEDS: amLODIPine 5 MG TAB PO SCH (11:43)
[2018-12-27] MEDS: LANSOPRAZOLE 30 MG SOLUTAB FEEDTUBE SCH ×2 (11:43→22:49)
[2018-12-27] MEDS: MULTIVITAMINS 5 ML ORAL LIQUID PO SCH (11:43)
[2018-12-27] MEDS: LEVOTHYROXINE 100 MCG TAB PO SCH (11:43)
[2018-12-27] MEDS: DULoxetine 30 MG CAP PO SCH ×2 (11:43→22:49)
--- NOTE | 2018-12-27 12:30 | Cat Scan Report ---
CT head/brain wo con INDICATION / CLINICAL INFORMATION: 73 years Female; ams. TECHNIQUE: Routine CT head without contrast. All CT scans at this location are performed using CT dos e reduction for ALARA by means of automated exposure control. Suboptimal patient positioning and coop eration limits the exam. COMPARISON: 12/23/2018 FINDINGS: BRAIN / INTRACRANIAL CONTENTS: No acute hemorrhage, mass effect, midline shift, hydrocephalus, or acu te, large territorial infarct. Mild cerebral atrophy. There are moderate, somewhat confluent areas of decreased attenuation in the white matter of the cere bral hemispheres, as well as the gangliocapsular regions. These are nonspecific findings and may be r elated to microangiopathy (hypertension, diabetes, atherosclerosis), given the patient's age. It migh t be difficult to evaluate for small areas of ischemia without diffusion imaging by MRI. CRANIOCERVICAL JUNCTION: No significant abnormality. ORBITS: No significant abnormality of visualized orbits. SINUSES / MASTOIDS: There is partial opacification of the mastoids-right greater than left. ADDITIONAL FINDINGS: Atherosclerotic disease is seen in the anterior and posterior circulation. NG tube is noted. IMPRESSION: 1. No focal mass, hemorrhage, hydrocephalus, or acute, large territorial infarct. Signer Name: Juan Gonzales MD, III Signed: 12/27/2018 12:25 PM Workstation Name: [id number]
[2018-12-27] MEDS ORDERED: SODIUM BICARBONATE 325 MG TAB FEEDTUBE PRN (15:18)
[2018-12-27] MEDS ORDERED: LIPASE 10,500/PROTEASE 25,000/AMYLASE 43,750 (UNITS) DR CAP FEEDTUBE PRN (15:18)
[2018-12-27] MEDS ORDERED: SIMPLE SYRUP 15 ML FEEDTUBE PRN ×2 (15:18)
--- NOTE | 2018-12-27 17:55 | Consultation ---
History of Present Illness Consult date: 12/27/18 History of present illness: i Have carfully gone over the repeat CT of the head that I ordered and I confidently can say this does not appear to be progression of herpes e ncephalitis as the mesial temporal lobe area is not really seen as being worse the CT showws a small chronic right MCA infarct and seizure control now with added medication therapeuic amount of IV vimpat usually works well with keppra at the present dose Thanks Past History Past Medical History: arthritis, diabetes, GERD, hypertension, hypothyroidism, other (Asthma) Past Surgical History: No surgical history, Other (reviewed) Social history: single, lives with family. denies: smoking, alcohol abuse, pr escription drug abuse Family history: hypertension Medications and Allergies Allergies Allergy/AdvReac Type Severity Reaction Status Date / Time No Known Allergies Allergy Unverified 02/16/13 00:01 Home Medications Medication Instructions Recorded Confirmed Last Taken Type Insulin Detemir [Levemir Flexpen] 5 unit SC HS 02/16/13 12/23/18 12/22/18 History Insulin Aspart [NovoLOG 100 100 unit SQ AC PRN #1 bottle 03/15/13 12/23/18 12/22/18 Rx UNITS/ML VIAL] Multivitamin Tab [Multiple Vitamin 1 each PO QDAY #30 tablet 03/15/13 12/23/18 12/22/18 Rx TAB (Theragran)] glipiZIDE [Glipizide Xl] 2.5 mg PO QAM #30 tab.er.24 03/15/13 12/23/18 12/22/18 Rx glipiZIDE [Glipizide Xl] 5 mg PO QAM #30 tab.er.24 03/15/13 12/23/18 12/22/18 Rx DULoxetine [Cymbalta] 30 mg PO BID 12/23/18 12/23/18 12/22/18 History Ferrous Sulfate [Iron 325 MG] 325 mg PO QDAY 12/23/18 12/23/18 12/22/18 History Levothyroxine [Synthroid] 125 mcg PO QAM 12/23/18 12/23/18 12/22/18 History Pantoprazole [Protonix] 40 mg PO BID 12/23/18 12/23/18 12/22/18 History amLODIPine [Norvasc] 5 mg PO DAILY 12/23/18 12/23/18 12/22/18 History Active Meds: Active Medications Acetaminophen (Tylenol) 650 mg PO Q4H PRN PRN Reason: Pain MILD(1-3)/Fever >100.5/FLORES Last Admin: 12/26/18 21:23 Dose: 650 mg Documented by: Acetaminophen (Tylenol) 650 mg ND Q4H PRN PRN Reason: Pain, Mild (1-3) Last Admin: 12/25/18 13:58 Dose: 650 mg Documented by: Amlodipine Besylate (Norvasc) 5 mg PO DAILY [facility] Last Admin: 12/27/18 11:43 Dose: 5 mg Documented by: Lipase/Protease/Amylase (Sheldon Marques 10,500 Unit) 1 each FEEDTUBE PRN PRN PRN Reason: For Clogged Feeding Tube Dextrose (D50w (25gm) Syringe) 50 ml IV PRN PRN PRN Reason: Hypoglycemia Duloxetine HCl (Cymbalta) 30 mg PO BID [facility] Last Admin: 12/27/18 11:43 Dose: 30 mg Documented by: Enoxaparin Sodium (Lovenox) 40 mg SUB-Q QDAY@2200 [facility] Last Admin: 12/26/18 21:24 Dose: 40 mg Documented by: Ferrous Sulfate (Ferrous Sulfate) 308 mg PO QDAY [facility] Last Admin: 12/27/18 11:43 Dose: 308 mg Documented by: Levofloxacin/Dextrose (Levaquin 750mg/150ml) 750 mg in 150 mls @ 100 mls/hr IV Q24HR [facility]; Protocol Stop: 12/28/18 11:29 Last Admin: 12/27/18 09:37 Dose: 100 mls/hr Documented by: Sodium Chloride (Nacl 0.9% 1000 Ml) 1,000 mls @ 75 mls/hr IV DIRECT [facility] Last Admin: 12/27/18 08:14 Dose: 75 mls/hr Documented by: Levetiracetam 1,000 mg/ (Dextrose) 110 mls @ 400 mls/hr IV Q12H [facility] Last Admin: 12/27/18 14:02 Dose: 400 mls/hr Documented by: Lacosamide 100 mg/ Sodium (Chloride) 110 mls @ 100 mls/hr IV Q12H [facility] Last Admin: 12/27/18 11:30 Dose: 100 mls/hr Documented by: Insulin Human Regular (Humulin R) 0 units SUB-Q Q6HR [facility]; Protocol Lansoprazole (Prevacid Solutab) 30 mg FEEDTUBE BID [facility] Last Admin: 12/27/18 11:43 Dose: 30 mg Documented by: Levothyroxine Sodium (Synthroid) 100 mcg PO DAILY@0600 [facility] Last Admin: 12/27/18 11:43 Dose: 100 mcg Documented by: Lorazepam (Ativan) 1 mg IV Q4H PRN PRN Reason: Agitation Last Admin: 12/27/18 08:12 Dose: 1 mg Documented by: Multivitamins (Centrum Liq) 5 ml PO QDAY [facility] Last Admin: 12/27/18 11:43 Dose: 5 ml Documented by: Ondansetron HCl (Zofran) 4 mg IV Q8H PRN PRN Reason: Nausea And Vomiting Last Admin: 12/24/18 09:28 Dose: 4 mg Documented by: Simple Syrup (Simple Syrup) 15 ml FEEDTUBE PRN PRN PRN Reason: Hypoglycemia Simple Syrup (Simple Syrup) 30 ml FEEDTUBE PRN PRN PRN Reason: Hypoglycemia Sodium Bicarbonate (Sodium Bicarbonate) 325 mg FEEDTUBE PRN PRN PRN Reason: For Clogged Feeding Tube Sodium Chloride (Sodium Chloride Flush Syringe 10 Ml) 10 ml IV BID [facility] Last Admin: 12/27/18 11:31 Dose: 10 ml Documented by: Sodium Chloride (Sodium Chloride Flush Syringe 10 Ml) 10 ml IV PRN PRN PRN Reason: LINE FLUSH Physical Examination - Vital Signs Vital Signs: Vital Signs Pulse Resp Pulse Ox 82 15 95 12/23/18 07:46 12/23/18 07:46 12/23/18 07:46 Results - Laboratory Findings CBC and BMP: 12/26/18 07:08 12/26/18 21:39 Abnormal Lab Findings: Abnormal Labs 12/23/18 12/23/18 12/23/18 10:55 10:55 10:55 WBC 15.6 H RDW 18.2 H [place] % (Auto) [place] # Seg Neutrophils % Seg Neuts % (Manual) 92.0 H Lymphocytes % (Manual) 6.0 L Seg Neutrophils # Man 14.4 H Lymphocytes # (Manual) 0.9 L Potassium Chloride Carbon Dioxide BUN 5 L Creatinine 0.5 L Glucose 184 H POC Glucose Lactic Acid Magnesium ALT Ammonia 65.0 H Total Creatine Kinase Albumin TSH Free T4 12/23/18 12/23/18 12/23/18 10:55 10:55 10:55 WBC RDW [place] % (Auto) [place] # Seg Neutrophils % Seg Neuts % (Manual) Lymphocytes % (Manual) Seg Neutrophils # Man Lymphocytes # (Manual) Potassium Chloride Carbon Dioxide BUN Creatinine Glucose POC Glucose Lactic Acid Magnesium ALT Ammonia Total Creatine Kinase 152 H Albumin TSH 0.007 L Free T4 1.89 H 12/23/18 12/23/18 12/23/18 11:09 13:41 16:55 WBC RDW [place] % (Auto) [place] # Seg Neutrophils % Seg Neuts % (Manual) Lymphocytes % (Manual) Seg Neutrophils # Man Lymphocytes # (Manual) Potassium Chloride Carbon Dioxide BUN Creatinine Glucose POC Glucose 203 H 201 H Lactic Acid 2.20 H* Magnesium ALT Ammonia Total Creatine Kinase Albumin TSH Free T4 12/23/18 12/24/18 12/24/18 21:29 00:41 08:05 WBC RDW [place] % (Auto) [place] # Seg Neutrophils % Seg Neuts % (Manual) Lymphocytes % (Manual) Seg Neutrophils # Man Lymphocytes # (Manual) Potassium 3.0 L D Chloride Carbon Dioxide BUN Creatinine Glucose POC Glucose 161 H 161 H Lactic Acid Magnesium 1.60 L ALT Ammonia Total Creatine Kinase Albumin TSH Free T4 12/24/18 12/24/18 12/24/18 11:41 16:31 21:54 WBC RDW [place] % (Auto) [place] # Seg Neutrophils % Seg Neuts % (Manual) Lymphocytes % (Manual) Seg Neutrophils # Man Lymphocytes # (Manual) Potassium Chloride Carbon Dioxide BUN Creatinine Glucose POC Glucose 199 H 146 H 178 H Lactic Acid Magnesium ALT Ammonia Total Creatine Kinase Albumin TSH Free T4 12/25/18 12/25/18 12/25/18 06:03 06:03 07:19 WBC RDW 17.4 H [place] % (Auto) 11.9 H [place] # 0.9 H Seg Neutrophils % Seg Neuts % (Manual) Lymphocytes % (Manual) Seg Neutrophils # Man Lymphocytes # (Manual) Potassium 3.2 L Chloride 94.4 L Carbon Dioxide 31 H BUN Creatinine 0.5 L Glucose 187 H POC Glucose 170 H Lactic Acid Magnesium ALT Ammonia Total Creatine Kinase Albumin TSH Free T4 0912/25/18 12/25/18 11:40 16:47 22:00 WBC RDW [place] % (Auto) [place] # Seg Neutrophils % Seg Neuts % (Manual) Lymphocytes % (Manual) Seg Neutrophils # Man Lymphocytes # (Manual) Potassium Chloride Carbon Dioxide BUN Creatinine Glucose POC Glucose 188 H 169 H 178 H Lactic Acid Magnesium ALT Ammonia Total Creatine Kinase Albumin TSH Free T4 12/26/18 12/26/18 12/26/18 07:08 08:24 11:41 WBC RDW 17.0 H [place] % (Auto) 12.7 H [place] # 1.3 H Seg Neutrophils % 71.1 H Seg Neuts % (Manual) Lymphocytes % (Manual) Seg Neutrophils # Man Lymphocytes # (Manual) Potassium Chloride Carbon Dioxide BUN Creatinine Glucose POC Glucose 179 H 221 H Lactic Acid Magnesium ALT Ammonia Total Creatine Kinase Albumin TSH Free T4 12/26/18 12/26/18 12/26/18 16:39 20:42 21:39 WBC RDW [place] % (Auto) [place] # Seg Neutrophils % Seg Neuts % (Manual) Lymphocytes % (Manual) Seg Neutrophils # Man Lymphocytes # (Manual) Potassium 3.2 L Chloride 92.8 L Carbon Dioxide BUN Creatinine 0.6 L Glucose 222 H POC Glucose 239 H 212 H Lactic Acid Magnesium ALT 6 L Ammonia Total Creatine Kinase Albumin 3.4 L TSH Free T4
[2018-12-27] MEDS ORDERED: INSULIN REGULAR, HUMAN 100 UNITS/1 ML SUB-Q SCH (18:00)
[2018-12-27] MEDS: ENOXAPARIN 40 MG/0.4 ML INJ SUB-Q SCH (22:49)
[2018-12-28] MEDS: levETIRAcetam 1,000 MG in DEXTROSE 5% IN WATER 100 ML IV SCH ×2 (02:08→16:31)
[2018-12-28] MEDS: LEVOTHYROXINE 100 MCG TAB PO SCH (06:09)
[2018-12-28] MEDS: INSULIN LISPRO 100 UNIT/ML SUB-Q SCH ×3 (06:13→12:10)
[2018-12-28] MEDS: amLODIPine 5 MG TAB PO SCH (10:00)
[2018-12-28] MEDS: MULTIVITAMINS 5 ML ORAL LIQUID PO SCH (10:09)
[2018-12-28] MEDS: DULoxetine 30 MG CAP PO SCH ×2 (10:09→22:46)
[2018-12-28] MEDS: FERROUS SULFATE 308 MG (62mg Elemental Iron) / 7 ML ELIXIR PO SCH (10:10)
[2018-12-28] MEDS: LANSOPRAZOLE 30 MG SOLUTAB FEEDTUBE SCH ×2 (10:11→22:36)
[2018-12-28] MEDS: ACETAMINOPHEN 325 MG/10.15 ML ORAL LIQD UNIT DOSE PO PRN (10:12)
--- NOTE | 2018-12-28 11:03 | Progress Note ---
Assessment and Plan Assessment and plan: Seizure disorder She continues to have seizure most likely secondary to CVA. Patient seizures continue to be uncontrolled and thus neurology added Vimpat Acute CVA. Acute ischemia of the medial temporal lobe and the area of ischemia is certainly in the temporal lobe medial portion and this clearly can produce confusion and severe memory loss based on the area per neurology Debility PT/OT Encephalopathy Etiology secondary to CVA and seizure disorder. Continue to treat underlying causes. Diabetes mellitus Continue Accu-Cheks and sliding scale insulin. HTN (hypertension) Well control with medical management. Hypothyroidism Synthroid daily Hypomagnesemia Replete As needed Hypokalemia Replete as needed History Interval history: Patient with no new seizure activity since yesterday. Hospitalist Physical - Constitutional Vitals: Temp Pulse Resp BP Pulse Ox 101.2 F H 125 H 34 H 113/80 96 12/28/18 08:00 12/28/18 06:00 12/28/18 06:00 12/28/18 06:00 12/28/18 09:30 General appearance: Present: mild distress - EENT Eyes: Present: PERRL, EOM intact ENT: hearing intact, clear oral mucosa, dentition normal - Neck Neck: Present: supple, normal ROM - Respiratory Respiratory effort: normal Respiratory: bilateral: CTA - Cardiovascular Rhythm: regular Heart Sounds: Present: S1 & S2. Absent: gallop, rub - Extremities Extremities: no ischemia, No edema, Full ROM - Abdominal General gastrointestinal: soft, non-tender, non-distended, normal bowel sounds - Integumentary Integumentary: Present: clear, warm, dry - Neurologic Neurologic: moves all extremities, other (somnolent) Results - Labs CBC & Chem 7: 12/26/18 07:08 12/26/18 21:39 Labs: Laboratory Last Values WBC 9.9 K/mm3 (4.5-11.0) 12/26/18 07:08 RBC 4.94 M/mm3 (3.65-5.03) 12/26/18 07:08 Hgb 14.2 gm/dl (10.1-14.3) 12/26/18 07:08 Hct 42.9 % (30.3-42.9) 12/26/18 07:08 MCV 87 fl (79-97) 12/26/18 07:08 MCH 29 pg (28-32) 12/26/18 07:08 MCHC 33 % (30-34) 12/26/18 07:08 RDW 17.0 % (13.2-15.2) H 12/26/18 07:08 Plt Count 208 K/mm3 (140-440) 12/26/18 07:08 Lymph % (Auto) 16.0 % (13.4-35.0) 12/26/18 07:08 [place] % (Auto) 12.7 % (0.0-7.3) H 12/26/18 07:08 Eos % (Auto) 0.0 % (0.0-4.3) 12/26/18 07:08 Baso % (Auto) 0.2 % (0.0-1.8) 12/26/18 07:08 Lymph # 1.6 K/mm3 (1.2-5.4) 12/26/18 07:08 [place] # 1.3 K/mm3 (0.0-0.8) H 12/26/18 07:08 Eos # 0.0 K/mm3 (0.0-0.4) 12/26/18 07:08 Baso # 0.0 K/mm3 (0.0-0.1) 12/26/18 07:08 Add Manual Diff Complete 12/23/18 10:55 Total Counted 100 12/23/18 10:55 Seg Neutrophils % 71.1 % (40.0-70.0) H 12/26/18 07:08 Seg Neuts % (Manual) 92.0 % (40.0-70.0) H 12/23/18 10:55 0 % 12/23/18 10:55 6.0 % (13.4-35.0) L 12/23/18 10:55 Reactive Lymphs % (Man) 0 % 12/23/18 10:55 2.0 % (0.0-7.3) 12/23/18 10:55 0 % (0.0-4.3) 12/23/18 10:55 0 % (0.0-1.8) 12/23/18 10:55 0 % 12/23/18 10:55 0 % 12/23/18 10:55 0 % 12/23/18 10:55 0 % 12/23/18 10:55 Nucleated RBC % Not Reportable 12/23/18 10:55 Seg Neutrophils # 7.0 K/mm3 (1.8-7.7) 12/26/18 07:08 Seg Neutrophils # Man 14.4 K/mm3 (1.8-7.7) H 12/23/18 10:55 Band Neutrophils # 0.0 K/mm3 12/23/18 10:55 0.9 K/mm3 (1.2-5.4) L 12/23/18 10:55 Abs React Lymphs (Man) 0.0 K/mm3 12/23/18 10:55 0.3 K/mm3 (0.0-0.8) 12/23/18 10:55 0.0 K/mm3 (0.0-0.4) 12/23/18 10:55 0.0 K/mm3 (0.0-0.1) 12/23/18 10:55 0.0 K/mm3 12/23/18 10:55 0.0 K/mm3 12/23/18 10:55 0.0 K/mm3 12/23/18 10:55 Blast Cells # 0.0 K/mm3 12/23/18 10:55 WBC Morphology Not Reportable 12/23/18 10:55 Hypersegmented Neuts Not Reportable 12/23/18 10:55 Hyposegmented Neuts Not Reportable 12/23/18 10:55 Hypogranular Neuts Not Reportable 12/23/18 10:55 Not Reportable 12/23/18 10:55 Not Reportable 12/23/18 10:55 Not Reportable 12/23/18 10:55 Not Reportable 12/23/18 10:55 Not Reportable 12/23/18 10:55 Not Reportable 12/23/18 10:55 Consistent w auto 12/23/18 10:55 Not Reportable 12/23/18 10:55 Plt Clumps, EDTA Not Reportable 12/23/18 10:55 Not Reportable 12/23/18 10:55 Not Reportable 12/23/18 10:55 Not Reportable 12/23/18 10:55 Plt Morphology Comment Not Reportable 12/23/18 10:55 RBC Morphology Not Reportable 12/23/18 10:55 Dimorphic RBCs Not Reportable 12/23/18 10:55 Not Reportable 12/23/18 10:55 Not Reportable 12/23/18 10:55 Not Reportable 12/23/18 10:55 1+ 12/23/18 10:55 Not Reportable 12/23/18 10:55 Not Reportable 12/23/18 10:55 Not Reportable 12/23/18 10:55 Not Reportable 12/23/18 10:55 Not Reportable 12/23/18 10:55 Not Reportable 12/23/18 10:55 Not Reportable 12/23/18 10:55 Not Reportable 12/23/18 10:55 Not Reportable 12/23/18 10:55 Not Reportable 12/23/18 10:55 Not Reportable 12/23/18 10:55 Not Reportable 12/23/18 10:55 Not Reportable 12/23/18 10:55 Not Reportable 12/23/18 10:55 Not Reportable 12/23/18 10:55 Acanthocytes (Spur) Not Reportable 12/23/18 10:55 Rouleaux Not Reportable 12/23/18 10:55 Not Reportable 12/23/18 10:55 Not Reportable 12/23/18 10:55 Not Reportable 12/23/18 10:55 Not Reportable 12/23/18 10:55 Hem Pathologist Commnt No 12/23/18 10:55 VBG pH 7.333 (7.320-7.420) 12/23/18 11:13 Sodium 138 mmol/L (137-145) 12/26/18 21:39 Potassium 3.2 mmol/L (3.6-5.0) L 12/26/18 21:39 Chloride 92.8 mmol/L (98-107) L 12/26/18 21:39 Carbon Dioxide 28 mmol/L (22-30) 12/26/18 21:39 20 mmol/L 12/26/18 21:39 BUN 14 mg/dL (7-17) 12/26/18 21:39 0.6 mg/dL (0.7-1.2) L 12/26/18 21:39 Estimated GFR > 60 ml/min 12/26/18 21:39 23 % 12/26/18 21:39 Glucose 222 mg/dL (65-100) H 12/26/18 21:39 POC Glucose 182 (70-105) H 12/28/18 06:03 Lactic Acid 1.10 mmol/L (0.7-2.0) 12/23/18 20:07 Calcium 8.9 mg/dL (8.4-10.2) 12/26/18 21:39 Magnesium 1.60 mg/dL (1.7-2.3) L 12/24/18 00:41 0.90 mg/dL (0.1-1.2) 12/26/18 21:39 AST 13 units/L (5-40) 12/26/18 21:39 ALT 6 units/L (7-56) L 12/26/18 21:39 70 units/L (35-129) 12/26/18 21:39 65.0 umol/L (25-60) H 12/23/18 10:55 152 units/L (30-135) H 12/23/18 10:55 6.8 g/dL (6.3-8.2) 12/26/18 21:39 3.4 g/dL (3.9-5) L 12/26/18 21:39 1.0 % 12/26/18 21:39 TSH 0.007 mlU/mL (0.270-4.200) L 12/23/18 10:55 Free T4 1.89 ng/dL (0.76-1.46) H 12/23/18 10:55 Yellow (Yellow) 12/23/18 10:30 Slightly-cloudy (Clear) 12/23/18 10:30 6.0 (5.0-7.0) 12/23/18 10:30 Ur Specific [place] 1.015 (1.003-1.030) 12/23/18 10:30 >500 mg/dL (Negative) 12/23/18 10:30 50 mg/dL (Negative) 12/23/18 10:30 Tr mg/dL (Negative) 12/23/18 10:30 Neg (Negative) 12/23/18 10:30 Neg (Negative) 12/23/18 10:30 Neg (Negative) 12/23/18 10:30 < 2.0 mg/dL (<2.0) 12/23/18 10:30 Ur Leukocyte Esterase Neg (Negative) 12/23/18 10:30 3.0 /HPF (0.0-6.0) 12/23/18 10:30 6.0 /HPF (0.0-6.0) 12/23/18 10:30 U Epithel Cells (Auto) 1.0 /HPF (0-13.0) 12/23/18 10:30 1+ /HPF (Negative) 12/23/18 10:30 Few /HPF 12/23/18 10:30 Presumptive negative 12/23/18 10:30 Presumptive negative 12/23/18 10:30 Ur Barbiturates Screen Presumptive negative 12/23/18 10:30 Ur Phencyclidine Scrn Presumptive negative 12/23/18 10:30 Ur Amphetamines Screen Presumptive negative 12/23/18 10:30 U Benzodiazepines Scrn Presumptive positive 12/23/18 10:30 Presumptive negative 12/23/18 10:30 U Marijuana (THC) Screen Presumptive negative 12/23/18 10:30 Disclamer 12/23/18 10:30 Plasma/Serum Alcohol < 0.01 % (0-0.07) 12/23/18 10:55 Active Medications - Current Medications Current Medications: Generic Name Dose Route Start Last Admin Trade Name Freq PRN Reason Stop Dose Admin Acetaminophen 650 mg 12/25/18 04:00 12/28/18 10:12 Tylenol PO 650 mg Q4H PRN Administration Pain MILD(1-3)/Fever >100.5/FLORES Acetaminophen 650 mg 12/25/18 13:50 12/25/18 13:58 Tylenol [place] 650 mg Q4H PRN Administration Pain, Mild (1-3) Amlodipine Besylate 5 mg 12/24/18 10:00 12/27/18 11:43 Norvasc PO 5 mg DAILY AKASH Administration Lipase/Protease/Amylase 1 each 12/27/18 15:[address] 10,500 Unit FEEDTUBE PRN PRN For Clogged Feeding Tube Dextrose 50 ml 12/23/18 13:42 D50w (25gm) Syringe IV PRN PRN Hypoglycemia Duloxetine HCl 30 mg 12/23/18 22:00 12/28/18 10:09 Cymbalta PO 30 mg BID AKASH Administration Enoxaparin Sodium 40 mg 12/23/18 22:00 12/27/18 22:49 Lovenox SUB-Q 40 mg QDAY@2200 AKASH Administration Ferrous Sulfate 308 mg 12/25/18 10:00 12/28/18 10:10 Ferrous Sulfate PO 308 mg QDAY AKASH Administration Levofloxacin/Dextrose 750 mg in 150 mls @ 100 mls/hr 12/24/18 10:00 12/28/18 10:10 Levaquin 750mg/150ml IV 12/28/18 11:29 100 mls/hr Q24HR AKASH Administration Protocol Sodium Chloride 1,000 mls @ 75 mls/hr 12/24/18 18:00 12/27/18 22:49 Nacl 0.9% 1000 Ml IV 75 mls/hr DIRECT AKASH Administration Levetiracetam 1,000 mg/ 110 mls @ 400 mls/hr 12/26/18 14:00 12/28/18 02:08 Dextrose IV 400 mls/hr Q12H AKASH Administration Lacosamide 100 mg/ Sodium 110 mls @ 100 mls/hr 12/27/18 11:00 12/27/18 23:23 Chloride IV 100 mls/hr Q12H AKASH Administration Insulin Human Lispro 0 unit 12/27/18 18:00 12/28/18 06:13 Humalog SUB-Q 2 unit Q6HR AKASH Administration Protocol Lansoprazole 30 mg 12/25/18 10:00 12/28/18 10:11 Prevacid Solutab FEEDTUBE 30 mg BID AKASH Administration Levothyroxine Sodium 100 mcg 12/25/18 06:00 12/28/18 06:09 Synthroid PO 100 mcg DAILY@0600 AKASH Administration Lorazepam 1 mg 12/24/18 17:29 12/27/18 17:53 Ativan IV 1 mg Q4H PRN Administration Agitation Multivitamins 5 ml 12/25/18 10:00 12/28/18 10:09 Centrum Liq PO 5 ml QDAY AKASH Administration Ondansetron HCl 4 mg 12/23/18 13:27 12/24/18 09:28 Zofran IV 4 mg Q8H PRN Administration Nausea And Vomiting Simple Syrup 15 ml 12/27/18 15:18 Simple Syrup FEEDTUBE PRN PRN Hypoglycemia Simple Syrup 30 ml 12/27/18 15:18 Simple Syrup FEEDTUBE PRN PRN Hypoglycemia Sodium Bicarbonate 325 mg 12/27/18 15:18 Sodium Bicarbonate FEEDTUBE PRN PRN For Clogged Feeding Tube Sodium Chloride 10 ml 12/23/18 22:00 12/28/18 10:11 Sodium Chloride Flush Syringe 10 Ml IV 10 ml BID AKASH Administration Sodium Chloride 10 ml 12/23/18 13:27 Sodium Chloride Flush Syringe 10 Ml IV PRN PRN LINE FLUSH Nutrition/Malnutrition Assess - Dietary Evaluation Nutrition/Malnutrition Findings: Nutrition Notes Start: 12/24/18 10:0 3 Freq: Status: Active Protocol: Document 12/27/18 15:04 RM (Rec: 12/27/18 15:14 RM [email or web address]) Nutrition Notes Initial or Follow up Reassessment Current Diagnosis COPD,Diabetes,Hypertension Other Pertinent Diagnosis CVA, Debility, Seizures, Encephalopathy, SIRS Current Diet NPO Labs/Tests BG 222 Pertinent Medications Zofran Height 5 ft 6 in Weight 77.6 kg [place] Body Weight (kg) 59.09 BMI 27.6 Weight change and time frame Noted wt change. Likely d/t human error. Unable to weigh pt d/t bedscale malfunctioning . Pt does not appear to be 104 kg. Subjective/Other Information Consulted for TF recommendation. NGT in place. Burn Absent Trauma Absent Minimum of two criteria Yes Energy Intake (severe) < or equal to 50% Estimated Energy Requirement > or equal to 5 days Fluid Accumulation Moderate to Severe (severe) Reduced [employer] Strength Measurably Reduced (severe) #1 Nutrition Diagnosis Malnutrition Diagnosis Progress(for reassessment Continues documentation) Is patient on ventilator? No Is Patient Ambulatory and/or Out of Bed No REE-([facility]-confined to bed) [phone] Calculation Used for Recommendations [facility] Additional Notes Protein Needs: 93-116g (1.2-1. 5g/kg) Fluid Needs: 1 ml/kcal Nutrition Intervention Nutrition Support: Glucerna 1.2 at 55 ml/hr Water flush of 100 mls q 4 hrs Kcal 1,584 Protein (gm) 79 Fluid (mL) 1,063 Goal #1 TF tolerance Goal #2 Meet at least 75% of calorie and protein needs via TF Anticipated Discharge Needs: Unable to determine at this time Follow-Up By: 12/29/18 Additional Comments Follow for new TF
[2018-12-28] MEDS: LACOSAMIDE 100 MG in SODIUM CHLORIDE 0.9% 100 ML IV SCH (13:04)
[2018-12-28] MEDS: SODIUM CHLORIDE 0.9% 1000 ML 1,000 ML IV SCH (16:34)
[2018-12-28] MEDS: ENOXAPARIN 40 MG/0.4 ML INJ SUB-Q SCH (22:37)
[2018-12-29] MEDS: LACOSAMIDE 100 MG in SODIUM CHLORIDE 0.9% 100 ML IV SCH
[2018-12-29] MEDS: INSULIN LISPRO 100 UNIT/ML SUB-Q SCH ×4 (00:45→18:29)
[2018-12-29] MEDS: levETIRAcetam 1,000 MG in DEXTROSE 5% IN WATER 100 ML IV SCH ×2 (02:06→15:02)
[2018-12-29] MEDS: LEVOTHYROXINE 100 MCG TAB PO SCH (06:03)
[2018-12-29] MEDS: SODIUM CHLORIDE 0.9% 1000 ML 1,000 ML IV SCH (07:48)
--- NOTE | 2018-12-29 08:20 | Progress Note ---
Assessment and Plan Assessment and plan: --Seizure disorder She did not have any episodes of seizures today , on antiepileptic medications Neurology following , continue seizure precautions most likely secondary to CVA. --Acute CVA. Acute ischemia of the medial temporal lobe and the area of ischemia is certainly in the temporal lobe medial portion and this clearly can produce confusion and severe memory loss based on the area per neurology --Gen.Debility PT/OT, supportive care Possible placement --Metabolic Encephalopathy Etiology secondary to CVA and seizure disorder. Continue to treat underlying causes. --Diabetes mellitus Continue Accu-Cheks and sliding scale insulin. --HTN (hypertension) Well control with medical management. --Hypothyroidism Synthroid daily --Hypomagnesemia Replete As needed --Hypokalemia Replete as needed Critical care time 32 minutes History Interval history: Patient seen and examined medical records reviewed Patient is lethargic minimally communicative Family member at the bedside Admitted for seizures, evaluated by neurology On antiepileptic medications and seizure precautions Patient is not in acute distress Vital signs noted Hospitalist Physical - Constitutional Vitals: Temp Pulse Resp BP Pulse Ox 99.0 F 108 H 22 128/61 94 12/29/18 04:00 12/29/18 04:01 12/29/18 04:01 12/29/18 04:01 12/29/18 04:01 General appearance: Present: mild distress, other (lethergic) - EENT Eyes: Present: PERRL - Neck Neck: Present: supple, normal ROM - Respiratory Respiratory effort: normal Respiratory: bilateral: diminished, negative: rales, rhonchi, wheezing - Cardiovascular Rhythm: regular Heart Sounds: Present: S1 & S2 - Extremities Extremities: no ischemia, No edema - Abdominal General gastrointestinal: soft, non-tender, non-distended, normal bowel sounds - Integumentary Integumentary: Present: clear, warm - Psychiatric Psychiatric: other (noncommunicative) - Neurologic Neurologic: other (lethargic and noncommunicative) Results - Labs CBC & Chem 7: 12/29/18 09:50 12/29/18 08:09 Labs: Laboratory Last Values WBC 9.9 K/mm3 (4.5-11.0) 12/26/18 07:08 RBC 4.94 M/mm3 (3.65-5.03) 12/26/18 07:08 Hgb 14.2 gm/dl (10.1-14.3) 12/26/18 07:08 Hct 42.9 % (30.3-42.9) 12/26/18 07:08 MCV 87 fl (79-97) 12/26/18 07:08 MCH 29 pg (28-32) 12/26/18 07:08 MCHC 33 % (30-34) 12/26/18 07:08 RDW 17.0 % (13.2-15.2) H 12/26/18 07:08 Plt Count 208 K/mm3 (140-440) 12/26/18 07:08 Lymph % (Auto) 16.0 % (13.4-35.0) 12/26/18 07:08 [place] % (Auto) 12.7 % (0.0-7.3) H 12/26/18 07:08 Eos % (Auto) 0.0 % (0.0-4.3) 12/26/18 07:08 Baso % (Auto) 0.2 % (0.0-1.8) 12/26/18 07:08 Lymph # 1.6 K/mm3 (1.2-5.4) 12/26/18 07:08 [place] # 1.3 K/mm3 (0.0-0.8) H 12/26/18 07:08 Eos # 0.0 K/mm3 (0.0-0.4) 12/26/18 07:08 Baso # 0.0 K/mm3 (0.0-0.1) 12/26/18 07:08 Add Manual Diff Complete 12/23/18 10:55 Total Counted 100 12/23/18 10:55 Seg Neutrophils % 71.1 % (40.0-70.0) H 12/26/18 07:08 Seg Neuts % (Manual) 92.0 % (40.0-70.0) H 12/23/18 10:55 0 % 12/23/18 10:55 6.0 % (13.4-35.0) L 12/23/18 10:55 Reactive Lymphs % (Man) 0 % 12/23/18 10:55 2.0 % (0.0-7.3) 12/23/18 10:55 0 % (0.0-4.3) 12/23/18 10:55 0 % (0.0-1.8) 12/23/18 10:55 0 % 12/23/18 10:55 0 % 12/23/18 10:55 0 % 12/23/18 10:55 0 % 12/23/18 10:55 Nucleated RBC % Not Reportable 12/23/18 10:55 Seg Neutrophils # 7.0 K/mm3 (1.8-7.7) 12/26/18 07:08 Seg Neutrophils # Man 14.4 K/mm3 (1.8-7.7) H 12/23/18 10:55 Band Neutrophils # 0.0 K/mm3 12/23/18 10:55 0.9 K/mm3 (1.2-5.4) L 12/23/18 10:55 Abs React Lymphs (Man) 0.0 K/mm3 12/23/18 10:55 0.3 K/mm3 (0.0-0.8) 12/23/18 10:55 0.0 K/mm3 (0.0-0.4) 12/23/18 10:55 0.0 K/mm3 (0.0-0.1) 12/23/18 10:55 0.0 K/mm3 12/23/18 10:55 0.0 K/mm3 12/23/18 10:55 0.0 K/mm3 12/23/18 10:55 Blast Cells # 0.0 K/mm3 12/23/18 10:55 WBC Morphology Not Reportable 12/23/18 10:55 Hypersegmented Neuts Not Reportable 12/23/18 10:55 Hyposegmented Neuts Not Reportable 12/23/18 10:55 Hypogranular Neuts Not Reportable 12/23/18 10:55 Not Reportable 12/23/18 10:55 Not Reportable 12/23/18 10:55 Not Reportable 12/23/18 10:55 Not Reportable 12/23/18 10:55 Not Reportable 12/23/18 10:55 Not Reportable 12/23/18 10:55 Consistent w auto 12/23/18 10:55 Not Reportable 12/23/18 10:55 Plt Clumps, EDTA Not Reportable 12/23/18 10:55 Not Reportable 12/23/18 10:55 Not Reportable 12/23/18 10:55 Not Reportable 12/23/18 10:55 Plt Morphology Comment Not Reportable 12/23/18 10:55 RBC Morphology Not Reportable 12/23/18 10:55 Dimorphic RBCs Not Reportable 12/23/18 10:55 Not Reportable 12/23/18 10:55 Not Reportable 12/23/18 10:55 Not Reportable 12/23/18 10:55 1+ 12/23/18 10:55 Not Reportable 12/23/18 10:55 Not Reportable 12/23/18 10:55 Not Reportable 12/23/18 10:55 Not Reportable 12/23/18 10:55 Not Reportable 12/23/18 10:55 Not Reportable 12/23/18 10:55 Not Reportable 12/23/18 10:55 Not Reportable 12/23/18 10:55 Not Reportable 12/23/18 10:55 Not Reportable 12/23/18 10:55 Not Reportable 12/23/18 10:55 Not Reportable 12/23/18 10:55 Not Reportable 12/23/18 10:55 Not Reportable 12/23/18 10:55 Not Reportable 12/23/18 10:55 Acanthocytes (Spur) Not Reportable 12/23/18 10:55 Rouleaux Not Reportable 12/23/18 10:55 Not Reportable 12/23/18 10:55 Not Reportable 12/23/18 10:55 Not Reportable 12/23/18 10:55 Not Reportable 12/23/18 10:55 Hem Pathologist Commnt No 12/23/18 10:55 VBG pH 7.333 (7.320-7.420) 12/23/18 11:13 Sodium 138 mmol/L (137-145) 12/26/18 21:39 Potassium 3.2 mmol/L (3.6-5.0) L 12/26/18 21:39 Chloride 92.8 mmol/L (98-107) L 12/26/18 21:39 Carbon Dioxide 28 mmol/L (22-30) 12/26/18 21:39 20 mmol/L 12/26/18 21:39 BUN 14 mg/dL (7-17) 12/26/18 21:39 0.6 mg/dL (0.7-1.2) L 12/26/18 21:39 Estimated GFR > 60 ml/min 12/26/18 21:39 23 % 12/26/18 21:39 Glucose 222 mg/dL (65-100) H 12/26/18 21:39 POC Glucose 183 (70-105) H 12/29/18 05:52 Lactic Acid 1.10 mmol/L (0.7-2.0) 12/23/18 20:07 Calcium 8.9 mg/dL (8.4-10.2) 12/26/18 21:39 Magnesium 1.60 mg/dL (1.7-2.3) L 12/24/18 00:41 0.90 mg/dL (0.1-1.2) 12/26/18 21:39 AST 13 units/L (5-40) 12/26/18 21:39 ALT 6 units/L (7-56) L 12/26/18 21:39 70 units/L (35-129) 12/26/18 21:39 65.0 umol/L (25-60) H 12/23/18 10:55 152 units/L (30-135) H 12/23/18 10:55 6.8 g/dL (6.3-8.2) 12/26/18 21:39 3.4 g/dL (3.9-5) L 12/26/18 21:39 1.0 % 12/26/18 21:39 TSH 0.007 mlU/mL (0.270-4.200) L 12/23/18 10:55 Free T4 1.89 ng/dL (0.76-1.46) H 12/23/18 10:55 Yellow (Yellow) 12/23/18 10:30 Slightly-cloudy (Clear) 12/23/18 10:30 6.0 (5.0-7.0) 12/23/18 10:30 Ur Specific [place] 1.015 (1.003-1.030) 12/23/18 10:30 >500 mg/dL (Negative) 12/23/18 10:30 50 mg/dL (Negative) 12/23/18 10:30 Tr mg/dL (Negative) 12/23/18 10:30 Neg (Negative) 12/23/18 10:30 Neg (Negative) 12/23/18 10:30 Neg (Negative) 12/23/18 10:30 < 2.0 mg/dL (<2.0) 12/23/18 10:30 Ur Leukocyte Esterase Neg (Negative) 12/23/18 10:30 3.0 /HPF (0.0-6.0) 12/23/18 10:30 6.0 /HPF (0.0-6.0) 12/23/18 10:30 U Epithel Cells (Auto) 1.0 /HPF (0-13.0) 12/23/18 10:30 1+ /HPF (Negative) 12/23/18 10:30 Few /HPF 12/23/18 10:30 Presumptive negative 12/23/18 10:30 Presumptive negative 12/23/18 10:30 Ur Barbiturates Screen Presumptive negative 12/23/18 10:30 Ur Phencyclidine Scrn Presumptive negative 12/23/18 10:30 Ur Amphetamines Screen Presumptive negative 12/23/18 10:30 U Benzodiazepines Scrn Presumptive positive 12/23/18 10:30 Presumptive negative 12/23/18 10:30 U Marijuana (THC) Screen Presumptive negative 12/23/18 10:30 Disclamer 12/23/18 10:30 Plasma/Serum Alcohol < 0.01 % (0-0.07) 12/23/18 10:55 Active Medications - Current Medications Current Medications: Generic Name Dose Route Start Last Admin Trade Name Freq PRN Reason Stop Dose Admin Acetaminophen 650 mg 12/25/18 04:00 12/28/18 10:12 Tylenol PO 650 mg Q4H PRN Administration Pain MILD(1-3)/Fever >100.5/FLORES Acetaminophen 650 mg 12/25/18 13:50 12/25/18 13:58 Tylenol [place] 650 mg Q4H PRN Administration Pain, Mild (1-3) Amlodipine Besylate 5 mg 12/24/18 10:00 12/28/18 10:00 Norvasc PO Not Given DAILY AKASH Lipase/Protease/Amylase 1 each 12/27/18 15:[address] 10,500 Unit FEEDTUBE PRN PRN For Clogged Feeding Tube Dextrose 50 ml 12/23/18 13:42 D50w (25gm) Syringe IV PRN PRN Hypoglycemia Duloxetine HCl 30 mg 12/23/18 22:00 12/28/18 22:46 Cymbalta PO 30 mg BID AKASH Administration Enoxaparin Sodium 40 mg 12/23/18 22:00 12/28/18 22:37 Lovenox SUB-Q 40 mg QDAY@2200 AKASH Administration Ferrous Sulfate 308 mg 12/25/18 10:00 12/28/18 10:10 Ferrous Sulfate PO 308 mg QDAY AKASH Administration Sodium Chloride 1,000 mls @ 75 mls/hr 12/24/18 18:00 12/29/18 07:48 Nacl 0.9% 1000 Ml IV 75 mls/hr DIRECT AKASH Administration Levetiracetam 1,000 mg/ 110 mls @ 400 mls/hr 12/26/18 14:00 12/29/18 02:06 Dextrose IV 400 mls/hr Q12H AKASH Administration Lacosamide 100 mg/ Sodium 110 mls @ 100 mls/hr 12/27/18 11:00 12/29/18 00:00 Chloride IV 100 mls/hr Q12H AKASH Administration Insulin Human Lispro 0 unit 12/27/18 18:00 12/29/18 07:49 Humalog SUB-Q 2 unit Q6HR AKASH Administration Protocol Lansoprazole 30 mg 12/25/18 10:00 12/28/18 22:36 Prevacid Solutab FEEDTUBE 30 mg BID AKASH Administration Levothyroxine Sodium 100 mcg 12/25/18 06:00 12/29/18 06:03 Synthroid PO 100 mcg DAILY@0600 AKASH Administration Lorazepam 1 mg 12/24/18 17:29 12/27/18 17:53 Ativan IV 1 mg Q4H PRN Administration Agitation Multivitamins 5 ml 12/25/18 10:00 12/28/18 10:09 Centrum Liq PO 5 ml QDAY AKASH Administration Ondansetron HCl 4 mg 12/23/18 13:27 12/24/18 09:28 Zofran IV 4 mg Q8H PRN Administration Nausea And Vomiting Simple Syrup 15 ml 12/27/18 15:18 Simple Syrup FEEDTUBE PRN PRN Hypoglycemia Simple Syrup 30 ml 12/27/18 15:18 Simple Syrup FEEDTUBE PRN PRN Hypoglycemia Sodium Bicarbonate 325 mg 12/27/18 15:18 Sodium Bicarbonate FEEDTUBE PRN PRN For Clogged Feeding Tube Sodium Chloride 10 ml 12/23/18 22:00 12/28/18 22:37 Sodium Chloride Flush Syringe 10 Ml IV 10 ml BID AKASH Administration Sodium Chloride 10 ml 12/23/18 13:27 Sodium Chloride Flush Syringe 10 Ml IV PRN PRN LINE FLUSH Nutrition/Malnutrition Assess - Dietary Evaluation Nutrition/Malnutrition Findings: Nutrition Notes Start: 12/24/18 10:03 Freq: Status: Active Protocol: Document 12/27/18 15:04 RM (Rec: 12/27/18 15:14 RM [id number]) Nutrition Notes Initial or Follow up Reassessment Current Diagnosis COPD,Diabetes,Hypertension Other Pertinent Diagnosis CVA, Debility, Seizures, Encephalopathy, SIRS Current Diet NPO Labs/Tests BG 222 Pertinent Medications Zofran Height 5 ft 6 in Weight 77.6 kg [place] Body Weight (kg) 59.09 BMI 27.6 Weight change and time frame Noted wt change. Likely d/t human error. Unable to weigh pt d/t bedscale malfunctioning . Pt does not appear to be 104 kg. Subjective/Other Information Consulted for TF recommendation. NGT in place. Burn Absent Trauma Absent Minimum of two criteria Yes Energy Intake (severe) < or equal to 50% Estimated Energy Requirement > or equal to 5 days Fluid Accumulation Moderate to Severe (severe) Reduced Hoop Maker Strength Measurably Reduced (severe) #1 Nutrition Diagnosis Malnutrition Diagnosis Progress(for reassessment Continues documentation) Is patient on ventilator? No Is Patient Ambulatory and/or Out of Bed No REE-([facility]-confined to bed) 3761.702 Calculation Used for Recommendations [facility] Additional Notes Protein Needs: 93-116g (1.2-1. 5g/kg) Fluid Needs: 1 ml/kcal Nutrition Intervention Nutrition Support: Glucerna 1.2 at 55 ml/hr Water flush of 100 mls q 4 hrs Kcal 1,584 Protein (gm) 79 Fluid (mL) 1,063 Goal #1 TF tolerance Goal #2 Meet at least 75% of calorie and protein needs via TF Anticipated Discharge Needs: Unable to determine at this time Follow-Up By: 12/29/18 Additional Comments Follow for new TF
[2018-12-29 09:53] LABS: BUN/Creatinine Ratio 18; Blood Urea Nitrogen 9 mg/dL (7-17); Calcium 8.6 mg/dL (8.4-10.2); Hemolysis Index 71
[2018-12-29 10:35] LABS: Hematocrit 34.5 % (30.3-42.9); Hemoglobin 11.3 gm/dl (10.1-14.3); Mean Corpuscular HGB Conc 33 % (30-34); Mean Corpuscular Volume 89 fl (79-97); Platelet Count 157 K/mm3 (140-440); Red Blood Count 3.89 M/mm3 (3.65-5.03); Red Cell Distribution Width 17.2 % (13.2-15.2)
[2018-12-29] MEDS: DULoxetine 30 MG CAP PO SCH ×2 (10:54→22:14)
[2018-12-29] MEDS: LANSOPRAZOLE 30 MG SOLUTAB FEEDTUBE SCH (10:54)
[2018-12-29] MEDS: FERROUS SULFATE 308 MG (62mg Elemental Iron) / 7 ML ELIXIR PO SCH (10:54)
[2018-12-29] MEDS: amLODIPine 5 MG TAB PO SCH (10:54)
[2018-12-29] MEDS: MULTIVITAMINS 5 ML ORAL LIQUID PO SCH (10:54)
[2018-12-29 11:20] LABS: Basophils % (Auto) 0.2 % (0.0-1.8); Eosinophils # (Auto) 0.2 K/mm3 (0.0-0.4); Eosinophils % (Auto) 1.4 % (0.0-4.3); Lymphocytes # (Auto) 1.3 K/mm3 (1.2-5.4); Lymphocytes % (Auto) 11.8 % (13.4-35.0); Monocytes # (Auto) 0.6 K/mm3 (0.0-0.8); Monocytes % (Auto) 5.9 % (0.0-7.3)
[2018-12-29 12:08] LABS: Total Cells Counted 100
[2018-12-29 12:09] LABS: Anisocytosis Few
[2018-12-29 12:10] LABS: Ovalocytes Few; Platelet Estimate Consistent w Auto; Poikilocytosis Few
--- NOTE | 2018-12-29 13:14 | Progress Note ---
Subjective Date of service: 12/29/18 Interval history: alert and seizure free vcan be discharged to medical floor no longer needs ICU monitoring will continue all meds for seizures the same Thanks Objective - Vital Sign Vital Signs - 12hr 12/29/18 12/29/18 12/29/18 01:30 02:01 02:30 Temperature Pulse Rate 104 H 107 H 104 H Pulse Rate [ From Monitor] Respiratory 22 24 24 Rate Blood Pressure 136/61 136/61 131/62 O2 Sat by Pulse 94 95 95 Oximetry 12/29/18 12/29/18 12/29/18 03:00 03:31 04:00 Temperature 99.0 F Pulse Rate 98 H 104 H 106 H Pulse Rate [ 106 H From Monitor] Respiratory 22 25 H 19 Rate Blood Pressure 140/61 127/59 O2 Sat by Pulse 97 94 99 Oximetry 12/29/18 12/29/18 12/29/18 04:01 04:30 05:01 Temperature Pulse Rate 108 H 104 H 104 H Pulse Rate [ From Monitor] Respiratory 22 24 24 Rate Blood Pressure 128/61 134/81 147/129 O2 Sat by Pulse 94 92 96 Oximetry 12/29/18 12/29/18 12/29/18 05:30 06:01 06:31 Temperature Pulse Rate 109 H 104 H 98 H Pulse Rate [ From Monitor] Respiratory 24 19 22 Rate Blood Pressure 146/119 156/101 125/58 O2 Sat by Pulse 99 98 98 Oximetry 12/29/18 12/29/18 12/29/18 07:00 07:31 08:00 Temperature 98.5 F Pulse Rate 92 H 99 H 97 H Pulse Rate [ 97 H From Monitor] Respiratory 21 24 22 Rate Blood Pressure 123/54 137/110 O2 Sat by Pulse 99 99 97 Oximetry 12/29/18 12/29/18 12/29/18 08:01 08:31 09:01 Temperature Pulse Rate 99 H 99 H 102 H Pulse Rate [ From Monitor] Respiratory 26 H 23 24 Rate Blood Pressure 137/62 130/57 130/57 O2 Sat by Pulse 100 95 96 Oximetry 12/29/18 12/29/18 12/29/18 09:31 10:01 10:12 Temperature Pulse Rate 98 H 100 H Pulse Rate [ From Monitor] Respiratory 19 27 H Rate Blood Pressure 130/57 135/109 O2 Sat by Pulse 99 95 99 Oximetry 0912/29/18 12/29/18 10:31 10:54 11:01 Temperature Pulse Rate 93 H 95 H 95 H Pulse Rate [ From Monitor] Respiratory 21 24 Rate Blood Pressure 135/109 135/109 127/44 O2 Sat by Pulse 96 94 Oximetry 12/29/18 12/29/18 11:31 12:00 Temperature 98.1 F Pulse Rate 96 H Pulse Rate [ From Monitor] Respiratory 23 Rate Blood Pressure 127/44 O2 Sat by Pulse 98 Oximetry - Laboratory Findings CBC and BMP: 12/29/18 09:50 12/29/18 08:09 Abnormal Lab Findings: Abnormal Labs 12/23/18 12/23/18 12/23/18 10:55 10:55 10:55 WBC 15.6 H RDW 18.2 H Lymph % (Auto) [place] % (Auto) [place] # Seg Neutrophils % Seg Neuts % (Manual) 92.0 H Lymphocytes % (Manual) 6.0 L Seg Neutrophils # Seg Neutrophils # Man 14.4 H Lymphocytes # (Manual) 0.9 L Potassium Chloride Carbon Dioxide BUN 5 L Creatinine 0.5 L Glucose 184 H POC Glucose Lactic Acid Magnesium ALT Ammonia 65.0 H Total Creatine Kinase Albumin TSH Free T4 12/23/18 12/23/18 12/23/18 10:55 10:55 10:55 WBC RDW Lymph % (Auto) [place] % (Auto) [place] # Seg Neutrophils % Seg Neuts % (Manual) Lymphocytes % (Manual) Seg Neutrophils # Seg Neutrophils # Man Lymphocytes # (Manual) Potassium Chloride Carbon Dioxide BUN Creatinine Glucose POC Glucose Lactic Acid Magnesium ALT Ammonia Total Creatine Kinase 152 H Albumin TSH 0.007 L Free T4 1.89 H 12/23/18 12/23/18 12/23/18 11:09 13:41 16:55 WBC RDW Lymph % (Auto) [place] % (Auto) [place] # Seg Neutrophils % Seg Neuts % (Manual) Lymphocytes % (Manual) Seg Neutrophils # Seg Neutrophils # Man Lymphocytes # (Manual) Potassium Chloride Carbon Dioxide BUN Creatinine Glucose POC Glucose 203 H 201 H Lactic Acid 2.20 H* Magnesium ALT Ammonia Total Creatine Kinase Albumin TSH Free T4 12/23/18 12/24/18 12/24/18 21:29 00:41 08:05 WBC RDW Lymph % (Auto) [place] % (Auto) [place] # Seg Neutrophils % Seg Neuts % (Manual) Lymphocytes % (Manual) Seg Neutrophils # Seg Neutrophils # Man Lymphocytes # (Manual) Potassium 3.0 L D Chloride Carbon Dioxide BUN Creatinine Glucose POC Glucose 161 H 161 H Lactic Acid Magnesium 1.60 L ALT Ammonia Total Creatine Kinase Albumin TSH Free T4 12/24/18 12/24/18 12/24/18 11:41 16:31 21:54 WBC RDW Lymph % (Auto) [place] % (Auto) [place] # Seg Neutrophils % Seg Neuts % (Manual) Lymphocytes % (Manual) Seg Neutrophils # Seg Neutrophils # Man Lymphocytes # (Manual) Potassium Chloride Carbon Dioxide BUN Creatinine Glucose POC Glucose 199 H 146 H 178 H Lactic Acid Magnesium ALT Ammonia Total Creatine Kinase Albumin TSH Free T4 12/25/18 12/25/18 12/25/18 06:03 06:03 07:19 WBC RDW 17.4 H Lymph % (Auto) [place] % (Auto) 11.9 H [place] # 0.9 H Seg Neutrophils % Seg Neuts % (Manual) Lymphocytes % (Manual) Seg Neutrophils # Seg Neutrophils # Man Lymphocytes # (Manual) Potassium 3.2 L Chloride 94.4 L Carbon Dioxide 31 H BUN Creatinine 0.5 L Glucose 187 H POC Glucose 170 H Lactic Acid Magnesium ALT Ammonia Total Creatine Kinase Albumin TSH Free T4 12/25/18 12/25/18 12/25/18 11:40 16:47 22:00 WBC RDW Lymph % (Auto) [place] % (Auto) [place] # Seg Neutrophils % Seg Neuts % (Manual) Lymphocytes % (Manual) Seg Neutrophils # Seg Neutrophils # Man Lymphocytes # (Manual) Potassium Chloride Carbon Dioxide BUN Creatinine Glucose POC Glucose 188 H 169 H 178 H Lactic Acid Magnesium ALT Ammonia Total Creatine Kinase Albumin TSH Free T4 12/26/18 12/26/18 12/26/18 07:08 08:24 11:41 WBC RDW 17.0 H Lymph % (Auto) [place] % (Auto) 12.7 H [place] # 1.3 H Seg Neutrophils % 71.1 H Seg Neuts % (Manual) Lymphocytes % (Manual) Seg Neutrophils # Seg Neutrophils # Man Lymphocytes # (Manual) Potassium Chloride Carbon Dioxide BUN Creatinine Glucose POC Glucose 179 H 221 H Lactic Acid Magnesium ALT Ammonia Total Creatine Kinase Albumin TSH Free T4 12/26/18 12/26/18 12/26/18 16:39 20:42 21:39 WBC RDW Lymph % (Auto) [place] % (Auto) [place] # Seg Neutrophils % Seg Neuts % (Manual) Lymphocytes % (Manual) Seg Neutrophils # Seg Neutrophils # Man Lymphocytes # (Manual) Potassium 3.2 L Chloride 92.8 L Carbon Dioxide BUN Creatinine 0.6 L Glucose 222 H POC Glucose 239 H 212 H Lactic Acid Magnesium ALT 6 L Ammonia Total Creatine Kinase Albumin 3.4 L TSH Free T4 12/27/18 12/27/18 12/27/18 08:22 11:43 18:13 WBC RDW Lymph % (Auto) [place] % (Auto) [place] # Seg Neutrophils % Seg Neuts % (Manual) Lymphocytes % (Manual) Seg Neutrophils # Seg Neutrophils # Man Lymphocytes # (Manual) Potassium Chloride Carbon Dioxide BUN Creatinine Glucose POC Glucose 218 H 185 H 164 H Lactic Acid Magnesium ALT Ammonia Total Creatine Kinase Albumin TSH Free T4 12/27/18 12/28/18 12/28/18 23:27 06:03 11:54 WBC RDW Lymph % (Auto) [place] % (Auto) [place] # Seg Neutrophils % Seg Neuts % (Manual) Lymphocytes % (Manual) Seg Neutrophils # Seg Neutrophils # Man Lymphocytes # (Manual) Potassium Chloride Carbon Dioxide BUN Creatinine Glucose POC Glucose 199 H 182 H 277 H Lactic Acid Magnesium ALT Ammonia Total Creatine Kinase Albumin TSH Free T4 12/28/18 12/28/18 12/29/18 18:00 23:44 05:52 WBC RDW Lymph % (Auto) [place] % (Auto) [place] # Seg Neutrophils % Seg Neuts % (Manual) Lymphocytes % (Manual) Seg Neutrophils # Seg Neutrophils # Man Lymphocytes # (Manual) Potassium Chloride Carbon Dioxide BUN Creatinine Glucose POC Glucose 145 H 192 H 183 H Lactic Acid Magnesium ALT Ammonia Total Creatine Kinase Albumin TSH Free T4 12/29/18 12/29/18 12/29/18 08:09 09:50 12:28 WBC RDW 17.2 H Lymph % (Auto) 11.8 L [place] % (Auto) [place] # Seg Neutrophils % 80.7 H Seg Neuts % (Manual) 80.0 H Lymphocytes % (Manual) 11.0 L Seg Neutrophils # 8.8 H Seg Neutrophils # Man 8.7 H Lymphocytes # (Manual) Potassium Chloride Carbon Dioxide BUN Creatinine 0.5 L Glucose 190 H POC Glucose 177 H Lactic Acid Magnesium ALT Ammonia Total Creatine Kinase Albumin TSH Free T4
[2018-12-29] MEDS: LACOSAMIDE 100 MG TAB PO SCH (15:01)
[2018-12-29] MEDS: ACETAMINOPHEN 325 MG/10.15 ML ORAL LIQD UNIT DOSE PO PRN (22:14)
[2018-12-29] MEDS: ENOXAPARIN 40 MG/0.4 ML INJ SUB-Q SCH (22:15)
[2018-12-30] MEDS: LANSOPRAZOLE 30 MG SOLUTAB FEEDTUBE SCH ×3 (01:31→23:51)
[2018-12-30] MEDS: levETIRAcetam 1,000 MG in DEXTROSE 5% IN WATER 100 ML IV SCH ×2 (02:45→15:56)
[2018-12-30] MEDS: LACOSAMIDE 100 MG TAB PO SCH ×2 (04:57→17:00)
[2018-12-30] MEDS: LEVOTHYROXINE 100 MCG TAB PO SCH (05:00)
[2018-12-30] MEDS: SCOPOLAMINE TRANSDERMAL PATCH 72 HR TD SCH (05:00)
[2018-12-30 06:44] LABS: BUN/Creatinine Ratio 20; Blood Urea Nitrogen 8 mg/dL (7-17); Calcium 8.9 mg/dL (8.4-10.2); Hemolysis Index 4
[2018-12-30] MEDS ORDERED: POTASSIUM CHLORIDE ER 20 MEQ TAB PO ONE (10:00)
[2018-12-30] MEDS ORDERED: MAGNESIUM SULFATE 2 GM/50 ML BAG IV ONE (10:00)
[2018-12-30] MEDS: POTASSIUM CHLORIDE 10 MEQ 10 MEQ/100 ML BAG IV SCH ×3 (12:04→18:20)
[2018-12-30] MEDS: INSULIN LISPRO 100 UNIT/ML SUB-Q SCH ×3 (12:32→13:02)
[2018-12-30] MEDS: DULoxetine 30 MG CAP PO SCH ×2 (12:52→23:51)
[2018-12-30] MEDS: amLODIPine 5 MG TAB PO SCH (12:57)
--- NOTE | 2018-12-30 13:11 | Consultation ---
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 denies: smoking, alcohol abuse, prescription drug abuse Family history: hypertension Medications and Allergies Allergies Allergy/AdvReac Type Severity Reaction Status Date / Time No Known Allergies Allergy Unverified 02/16/13 00:01 Home Medications Medication Instructions Recorded Confirmed Last Taken Type Insulin Detemir [Levemir Flexpen] 5 unit SC HS 02/16/13 12/23/18 12/22/18 History Insulin Aspart [NovoLOG 100 100 unit SQ AC PRN #1 bottle 03/15/13 12/23/18 Rx UNITS/ML VIAL] Multivitamin Tab [Multiple Vitamin 1 each PO QDAY #30 tablet 03/15/13 12/23/18 12/22/18 Rx TAB (Theragran)] glipiZIDE [Glipizide Xl] 2.5 mg PO QAM #30 tab.er.24 03/15/13 12/23/18 12/22/18 Rx glipiZIDE [Glipizide Xl] 5 mg PO QAM #30 tab.er.24 03/15/13 12/23/18 12/22/18 Rx DULoxetine [Cymbalta] 30 mg PO BID 12/23/18 12/23/18 12/22/18 History Ferrous Sulfate [Iron 325 MG] 325 mg PO QDAY 12/23/18 12/23/18 12/22/18 History Levothyroxine [Synthroid] 125 mcg PO QAM 12/23/18 12/23/18 12/22/18 History Pantoprazole [Protonix] 40 mg PO BID 12/23/18 12/23/18 12/22/18 History amLODIPine [Norvasc] 5 mg PO DAILY 12/23/18 12/23/18 12/22/18 History Active Meds: Active Medications Acetaminophen (Tylenol) 650 mg PO Q4H PRN PRN Reason: Pain MILD(1-3)/Fever >100.5/FLORES Last Admin: 12/29/18 22:14 Dose: 650 mg Documented by: Acetaminophen (Tylenol) 650 mg MO Q4H PRN PRN Reason: Pain, Mild (1-3) Last Admin: 12/25/18 13:58 Dose: 650 mg Documented by: Amlodipine Besylate (Norvasc) 5 mg PO DAILY [facility] Last Admin: 12/30/18 12:57 Dose: 5 mg Documented by: Lipase/Protease/Amylase (Pancresharif Marques 10,500 Unit) 1 each FEEDTUBE PRN PRN PRN Reason: For Clogged Feeding Tube Dextrose (D50w (25gm) Syringe) 50 ml IV PRN PRN PRN Reason: Hypoglycemia Duloxetine HCl (Cymbalta) 30 mg PO BID [facility] Last Admin: 12/30/18 12:52 Dose: 30 mg Documented by: Enoxaparin Sodium (Lovenox) 40 mg SUB-Q QDAY@2200 [facility] Last Admin: 12/29/18 22:15 Dose: 40 mg Documented by: Ferrous Sulfate (Ferrous Sulfate) 308 mg PO QDAY [facility] Last Admin: 12/29/18 10:54 Dose: 308 mg Documented by: Sodium Chloride (Nacl 0.9% 1000 Ml) 1,000 mls @ 75 mls/hr IV DIRECT [facility] Last Admin: 12/29/18 07:48 Dose: 75 mls/hr Documented by: Levetiracetam 1,000 mg/ (Dextrose) 110 mls @ 400 mls/hr IV Q12H [facility] Stop: 12/30/18 23:59 Last Admin: 12/30/18 02:45 Dose: 400 mls/hr Documented by: Insulin Human Lispro (Humalog) 0 unit SUB-Q Q6HR [facility]; Protocol Last Admin: 12/30/18 13:02 Dose: 3 unit Documented by: Lacosamide (Vimpat) 100 mg PO Q12H [facility] Last Admin: 12/30/18 04:57 Dose: 100 mg Documented by: Lansoprazole (Prevacid Solutab) 30 mg FEEDTUBE BID [facility] Last Admin: 12/30/18 12:52 Dose: 30 mg Documented by: Levetiracetam (Keppra) 1,000 mg PO BID [facility] Levothyroxine Sodium (Synthroid) 100 mcg PO DAILY@0600 [facility] Last Admin: 12/30/18 05:00 Dose: 100 mcg Documented by: Lorazepam (Ativan) 1 mg IV Q4H PRN PRN Reason: Agitation Last Admin: 12/27/18 17:53 Dose: 1 mg Documented by: Multivitamins (Centrum Liq) 5 ml PO QDAY [facility] Last Admin: 12/29/18 10:54 Dose: 5 ml Documented by: Ondansetron HCl (Zofran) 4 mg IV Q8H PRN PRN Reason: Nausea And Vomiting Last Admin: 12/24/18 09:28 Dose: 4 mg Documented by: Scopolamine (Transderm-Scop) 1 each TD Q3D [facility] Last Admin: 12/30/18 05:00 Dose: 1 each Documented by: Simple Syrup (Simple Syrup) 15 ml FEEDTUBE PRN PRN PRN Reason: Hypoglycemia Simple Syrup (Simple Syrup) 30 ml FEEDTUBE PRN PRN PRN Reason: Hypoglycemia Sodium Bicarbonate (Sodium Bicarbonate) 325 mg FEEDTUBE PRN PRN PRN Reason: For Clogged Feeding Tube Sodium Chloride (Sodium Chloride Flush Syringe 10 Ml) 10 ml IV BID [facility] Last Admin: 12/29/18 22:16 Dose: 10 ml Documented by: Sodium Chloride (Sodium Chloride Flush Syringe 10 Ml) 10 ml IV PRN PRN PRN Reason: LINE FLUSH Physical Examination - Vital Signs Vital Signs: Vital Signs Pulse Resp Pulse Ox 82 15 95 12/23/18 07:46 12/23/18 07:46 12/23/18 07:46 Results - Laboratory Findings CBC and BMP: 12/29/18 09:50 12/30/18 04:49 Abnormal Lab Findings: Abnormal Labs 12/23/18 12/23/18 12/23/18 10:55 10:55 10:55 WBC 15.6 H RDW 18.2 H Lymph % (Auto) [place] % (Auto) [place] # Seg Neutrophils % Seg Neuts % (Manual) 92.0 H Lymphocytes % (Manual) 6.0 L Seg Neutrophils # Seg Neutrophils # Man 14.4 H Lymphocytes # (Manual) 0.9 L Potassium Chloride Carbon Dioxide BUN 5 L Creatinine 0.5 L Glucose 184 H POC Glucose Lactic Acid Phosphorus Magnesium ALT Ammonia 65.0 H Total Creatine Kinase Albumin TSH Free T4 12/23/18 12/23/18 12/23/18 10:55 10:55 10:55 WBC RDW Lymph % (Auto) [place] % (Auto) [place] # Seg Neutrophils % Seg Neuts % (Manual) Lymphocytes % (Manual) Seg Neutrophils # Seg Neutrophils # Man Lymphocytes # (Manual) Potassium Chloride Carbon Dioxide BUN Creatinine Glucose POC Glucose Lactic Acid Phosphorus Magnesium ALT Ammonia Total Creatine Kinase 152 H Albumin TSH 0.007 L Free T4 1.89 H 12/23/18 12/23/18 12/23/18 11:09 13:41 16:55 WBC RDW Lymph % (Auto) [place] % (Auto) [place] # Seg Neutrophils % Seg Neuts % (Manual) Lymphocytes % (Manual) Seg Neutrophils # Seg Neutrophils # Man Lymphocytes # (Manual) Potassium Chloride Carbon Dioxide BUN Creatinine Glucose POC Glucose 203 H 201 H Lactic Acid 2.20 H* Phosphorus Magnesium ALT Ammonia Total Creatine Kinase Albumin TSH Free T4 12/23/18 12/24/18 12/24/18 21:29 00:41 08:05 WBC RDW Lymph % (Auto) [place] % (Auto) [place] # Seg Neutrophils % Seg Neuts % (Manual) Lymphocytes % (Manual) Seg Neutrophils # Seg Neutrophils # Man Lymphocytes # (Manual) Potassium 3.0 L D Chloride Carbon Dioxide BUN Creatinine Glucose POC Glucose 161 H 161 H Lactic Acid Phosphorus Magnesium 1.60 L ALT Ammonia Total Creatine Kinase Albumin TSH Free T4 12/24/18 12/24/18 12/24/18 11:41 16:31 21:54 WBC RDW Lymph % (Auto) [place] % (Auto) [place] # Seg Neutrophils % Seg Neuts % (Manual) Lymphocytes % (Manual) Seg Neutrophils # Seg Neutrophils # Man Lymphocytes # (Manual) Potassium Chloride Carbon Dioxide BUN Creatinine Glucose POC Glucose 199 H 146 H 178 H Lactic Acid Phosphorus Magnesium ALT Ammonia Total Creatine Kinase Albumin TSH Free T4 12/25/18 12/25/18 12/25/18 06:03 06:03 07:19 WBC RDW 17.4 H Lymph % (Auto) [place] % (Auto) 11.9 H [place] # 0.9 H Seg Neutrophils % Seg Neuts % (Manual) Lymphocytes % (Manual) Seg Neutrophils # Seg Neutrophils # Man Lymphocytes # (Manual) Potassium 3.2 L Chloride 94.4 L Carbon Dioxide 31 H BUN Creatinine 0.5 L Glucose 187 H POC Glucose 170 H Lactic Acid Phosphorus Magnesium ALT Ammonia Total Creatine Kinase Albumin TSH Free T4 12/25/18 12/25/18 12/25/18 11:40 16:47 22:00 WBC RDW Lymph % (Auto) [place] % (Auto) [place] # Seg Neutrophils % Seg Neuts % (Manual) Lymphocytes % (Manual) Seg Neutrophils # Seg Neutrophils # Man Lymphocytes # (Manual) Potassium Chloride Carbon Dioxide BUN Creatinine Glucose POC Glucose 188 H 169 H 178 H Lactic Acid Phosphorus Magnesium ALT Ammonia Total Creatine Kinase Albumin TSH Free T4 12/26/18 12/26/18 12/26/18 07:08 08:24 11:41 WBC RDW 17.0 H Lymph % (Auto) [place] % (Auto) 12.7 H [place] # 1.3 H Seg Neutrophils % 71.1 H Seg Neuts % (Manual) Lymphocytes % (Manual) Seg Neutrophils # Seg Neutrophils # Man Lymphocytes # (Manual) Potassium Chloride Carbon Dioxide BUN Creatinine Glucose POC Glucose 179 H 221 H Lactic Acid Phosphorus Magnesium ALT Ammonia Total Creatine Kinase Albumin TSH Free T4 12/26/18 12/26/18 12/26/18 16:39 20:42 21:39 WBC RDW Lymph % (Auto) [place] % (Auto) [place] # Seg Neutrophils % Seg Neuts % (Manual) Lymphocytes % (Manual) Seg Neutrophils # Seg Neutrophils # Man Lymphocytes # (Manual) Potassium 3.2 L Chloride 92.8 L Carbon Dioxide BUN Creatinine 0.6 L Glucose 222 H POC Glucose 239 H 212 H Lactic Acid Phosphorus Magnesium ALT 6 L Ammonia Total Creatine Kinase Albumin 3.4 L TSH Free T4 12/27/18 12/27/18 12/27/18 08:22 11:43 18:13 WBC RDW Lymph % (Auto) [place] % (Auto) [place] # Seg Neutrophils % Seg Neuts % (Manual) Lymphocytes % (Manual) Seg Neutrophils # Seg Neutrophils # Man Lymphocytes # (Manual) Potassium Chloride Carbon Dioxide BUN Creatinine Glucose POC Glucose 218 H 185 H 164 H Lactic Acid Phosphorus Magnesium ALT Ammonia Total Creatine Kinase Albumin TSH Free T4 12/27/18 12/28/18 12/28/18 23:27 06:03 11:54 WBC RDW Lymph % (Auto) [place] % (Auto) [place] # Seg Neutrophils % Seg Neuts % (Manual) Lymphocytes % (Manual) Seg Neutrophils # Seg Neutrophils # Man Lymphocytes # (Manual) Potassium Chloride Carbon Dioxide BUN Creatinine Glucose POC Glucose 199 H 182 H 277 H Lactic Acid Phosphorus Magnesium ALT Ammonia Total Creatine Kinase Albumin TSH Free T4 12/28/18 12/28/18 12/29/18 18:00 23:44 05:52 WBC RDW Lymph % (Auto) [place] % (Auto) [place] # Seg Neutrophils % Seg Neuts % (Manual) Lymphocytes % (Manual) Seg Neutrophils # Seg Neutrophils # Man Lymphocytes # (Manual) Potassium Chloride Carbon Dioxide BUN Creatinine Glucose POC Glucose 145 H 192 H 183 H Lactic Acid Phosphorus Magnesium ALT Ammonia Total Creatine Kinase Albumin TSH Free T4 12/29/18 12/29/18 12/29/18 08:09 09:50 12:28 WBC RDW 17.2 H Lymph % (Auto) 11.8 L [place] % (Auto) [place] # Seg Neutrophils % 80.7 H Seg Neuts % (Manual) 80.0 H Lymphocytes % (Manual) 11.0 L Seg Neutrophils # 8.8 H Seg Neutrophils # Man 8.7 H Lymphocytes # (Manual) Potassium Chloride Carbon Dioxide BUN Creatinine 0.5 L Glucose 190 H POC Glucose 177 H Lactic Acid Phosphorus Magnesium ALT Ammonia Total Creatine Kinase Albumin TSH Free T4 12/29/18 12/30/18 12/30/18 18:06 01:25 04:49 WBC RDW Lymph % (Auto) [place] % (Auto) [place] # Seg Neutrophils % Seg Neuts % (Manual) Lymphocytes % (Manual) Seg Neutrophils # Seg Neutrophils # Man Lymphocytes # (Manual) Potassium 2.9 L* D Chloride Carbon Dioxide 33 H BUN Creatinine 0.4 L Glucose 216 H POC Glucose 206 H 190 H Lactic Acid Phosphorus 1.90 L Magnesium 1.60 L ALT Ammonia Total Creatine Kinase Albumin TSH Free T4 12/30/18 12/30/18 05:25 12:13 WBC RDW Lymph % (Auto) [place] % (Auto) [place] # Seg Neutrophils % Seg Neuts % (Manual) Lymphocytes % (Manual) Seg Neutrophils # Seg Neutrophils # Man Lymphocytes # (Manual) Potassium Chloride Carbon Dioxide BUN Creatinine Glucose POC Glucose 226 H 233 H Lactic Acid Phosphorus Magnesium ALT Ammonia Total Creatine Kinase Albumin TSH Free T4
[2018-12-30] MEDS ORDERED: LACOSAMIDE 100 MG in SODIUM CHLORIDE 0.9% 100 ML IV SCH (14:00)
--- NOTE | 2018-12-30 14:43 | Progress Note ---
Assessment and Plan Assessment and plan: --Severe hypokalemia; replaced with oral and IV KCl, --Hypomagnesemia:IV magnesium sulfate, --Hypo phosphatemia; replace per protocol,monitor electrolytes, --Seizure disorder; She did not have any episodes of seizures today, mild facial twitches , on antiepileptic medications [facility] following , continue seizure precautions --Acute CVA; left weakness Aspirin and statin, PT,OT rehabilitation --Gen.Debility PT/OT, supportive care Possible placement --Metabolic Encephalopathy Etiology secondary to CVA and seizure disorder. Continue to treat underlying causes. --Diabetes mellitus Continue Accu-Cheks and sliding scale insulin. --HTN (hypertension) Well control with medical management. --Hypothyroidism Continue Synthroid daily --DVT prophylaxis; Lovenox Monitor closely and adjust management as needed Urology evaluation and recommendations noted and appreciated Discharge planning, case management when stable Plan of care is reviewed with the patient and her nurse History Interval history: Patient seen and examined and records reviewed Patient was admitted with seizures evaluated by neurology Placed on multiple antiepileptic medications Patient continues to have muscle twitches of the face Alert and awake responding appropriately Vital signs noted Hospitalist Physical - Constitutional Vitals: Temp Pulse Resp BP Pulse Ox 98.1 F 93 H 19 128/49 98 12/30/18 00:00 12/30/18 04:00 12/30/18 04:00 12/30/18 00:00 12/30/18 11:19 General appearance: Present: no acute distress, well-nourished, other (responds appropriately) - EENT Eyes: Present: PERRL, EOM intact - Neck Neck: Present: supple, normal ROM - Respiratory Respiratory effort: normal Respiratory: bilateral: diminished, negative: rhonchi, wheezing, other - Cardiovascular Rhythm: regular Heart Sounds: Present: S1 & S2 - Extremities Extremities: no ischemia, No edema - Abdominal General gastrointestinal: soft, non-tender, non-distended, normal bowel sounds - Integumentary Integumentary: Present: clear, warm - Psychiatric Psychiatric: appropriate mood/affect, cooperative - Neurologic Neurologic: other (CVA with left-sided weakness) Results - Labs CBC & Chem 7: 12/29/18 09:50 12/30/18 04:49 Labs: Laboratory Last Values WBC 10.9 K/mm3 (4.5-11.0) 12/29/18 09:50 RBC 3.89 M/mm3 (3.65-5.03) 12/29/18 09:50 Hgb 11.3 gm/dl (10.1-14.3) 12/29/18 09:50 Hct 34.5 % (30.3-42.9) 12/29/18 09:50 MCV 89 fl (79-97) 12/29/18 09:50 MCH 29 pg (28-32) 12/29/18 09:50 MCHC 33 % (30-34) 12/29/18 09:50 RDW 17.2 % (13.2-15.2) H 12/29/18 09:50 Plt Count 157 K/mm3 (140-440) 12/29/18 09:50 Lymph % (Auto) 11.8 % (13.4-35.0) L 12/29/18 09:50 Lane % (Auto) 5.9 % (0.0-7.3) 12/29/18 09:50 Eos % (Auto) 1.4 % (0.0-4.3) 12/29/18 09:50 Baso % (Auto) 0.2 % (0.0-1.8) 12/29/18 09:50 Lymph # 1.3 K/mm3 (1.2-5.4) 12/29/18 09:50 Lane # 0.6 K/mm3 (0.0-0.8) 12/29/18 09:50 Eos # 0.2 K/mm3 (0.0-0.4) 12/29/18 09:50 Baso # 0.0 K/mm3 (0.0-0.1) 12/29/18 09:50 Add Manual Diff Complete 12/29/18 09:50 Total Counted 100 12/29/18 09:50 Seg Neutrophils % 80.7 % (40.0-70.0) H 12/29/18 09:50 Seg Neuts % (Manual) 80.0 % (40.0-70.0) H 12/29/18 09:50 0 % 12/29/18 09:50 11.0 % (13.4-35.0) L 12/29/18 09:50 Reactive Lymphs % (Man) 0 % 12/29/18 09:50 4.0 % (0.0-7.3) 12/29/18 09:50 4.0 % (0.0-4.3) 12/29/18 09:50 1.0 % (0.0-1.8) 12/29/18 09:50 0 % 12/29/18 09:50 0 % 12/29/18 09:50 0 % 12/29/18 09:50 0 % 12/29/18 09:50 Nucleated RBC % Not Reportable 12/29/18 09:50 Seg Neutrophils # 8.8 K/mm3 (1.8-7.7) H 12/29/18 09:50 Seg Neutrophils # Man 8.7 K/mm3 (1.8-7.7) H 12/29/18 09:50 Band Neutrophils # 0.0 K/mm3 12/29/18 09:50 1.2 K/mm3 (1.2-5.4) 12/29/18 09:50 Abs React Lymphs (Man) 0.0 K/mm3 12/29/18 09:50 0.4 K/mm3 (0.0-0.8) 12/29/18 09:50 0.4 K/mm3 (0.0-0.4) 12/29/18 09:50 0.1 K/mm3 (0.0-0.1) 12/29/18 09:50 0.0 K/mm3 12/29/18 09:50 0.0 K/mm3 12/29/18 09:50 0.0 K/mm3 12/29/18 09:50 Blast Cells # 0.0 K/mm3 12/29/18 09:50 WBC Morphology Not Reportable 12/29/18 09:50 Hypersegmented Neuts Not Reportable 12/29/18 09:50 Hyposegmented Neuts Not Reportable 12/29/18 09:50 Hypogranular Neuts Not Reportable 12/29/18 09:50 Not Reportable 12/29/18 09:50 Not Reportable 12/29/18 09:50 Not Reportable 12/29/18 09:50 Not Reportable 12/29/18 09:50 Not Reportable 12/29/18 09:50 Not Reportable 12/29/18 09:50 Consistent w auto 12/29/18 09:50 Not Reportable 12/29/18 09:50 Plt Clumps, EDTA Not Reportable 12/29/18 09:50 Not Reportable 12/29/18 09:50 Not Reportable 12/29/18 09:50 Not Reportable 12/29/18 09:50 Plt Morphology Comment Not Reportable 12/29/18 09:50 RBC Morphology Not Reportable 12/29/18 09:50 Dimorphic RBCs Not Reportable 12/29/18 09:50 Not Reportable 12/29/18 09:50 Not Reportable 12/29/18 09:50 Few 12/29/18 09:50 Few 12/29/18 09:50 Not Reportable 12/29/18 09:50 Not Reportable 12/29/18 09:50 Not Reportable 12/29/18 09:50 Not Reportable 12/29/18 09:50 Not Reportable 12/29/18 09:50 Not Reportable 12/29/18 09:50 Not Reportable 12/29/18 09:50 Few 12/29/18 09:50 Not Reportable 12/29/18 09:50 Not Reportable 12/29/18 09:50 Not Reportable 12/29/18 09:50 Not Reportable 12/29/18 09:50 Not Reportable 12/29/18 09:50 Not Reportable 12/29/18 09:50 Rare 12/29/18 09:50 Acanthocytes (Spur) Not Reportable 12/29/18 09:50 Rouleaux Not Reportable 12/29/18 09:50 Not Reportable 12/29/18 09:50 Not Reportable 12/29/18 09:50 Not Reportable 12/29/18 09:50 Not Reportable 12/29/18 09:50 Hem Pathologist Commnt No 12/29/18 09:50 VBG pH 7.333 (7.320-7.420) 12/23/18 11:13 Sodium 143 mmol/L (137-145) 12/30/18 04:49 Potassium 2.9 mmol/L (3.6-5.0) L* D 12/30/18 04:49 Chloride 99.7 mmol/L (98-107) 12/30/18 04:49 Carbon Dioxide 33 mmol/L (22-30) H 12/30/18 04:49 13 mmol/L 12/30/18 04:49 BUN 8 mg/dL (7-17) 12/30/18 04:49 0.4 mg/dL (0.7-1.2) L 12/30/18 04:49 Estimated GFR > 60 ml/min 12/30/18 04:49 20 % 12/30/18 04:49 Glucose 216 mg/dL (65-100) H 12/30/18 04:49 POC Glucose 233 (70-105) H 12/30/18 12:13 Lactic Acid 1.10 mmol/L (0.7-2.0) 12/23/18 20:07 Calcium 8.9 mg/dL (8.4-10.2) 12/30/18 04:49 Phosphorus 1.90 mg/dL (2.5-4.5) L 12/30/18 04:49 Magnesium 1.60 mg/dL (1.7-2.3) L 12/30/18 13:29 0.90 mg/dL (0.1-1.2) 12/26/18 21:39 AST 13 units/L (5-40) 12/26/18 21:39 ALT 6 units/L (7-56) L 12/26/18 21:39 70 units/L (35-129) 12/26/18 21:39 65.0 umol/L (25-60) H 12/23/18 10:55 152 units/L (30-135) H 12/23/18 10:55 6.8 g/dL (6.3-8.2) 12/26/18 21:39 3.4 g/dL (3.9-5) L 12/26/18 21:39 1.0 % 12/26/18 21:39 TSH 0.007 mlU/mL (0.270-4.200) L 12/23/18 10:55 Free T4 1.89 ng/dL (0.76-1.46) H 12/23/18 10:55 Yellow (Yellow) 12/23/18 10:30 Slightly-cloudy (Clear) 12/23/18 10:30 6.0 (5.0-7.0) 12/23/18 10:30 Ur Specific Donalds 1.015 (1.003-1.030) 12/23/18 10:30 >500 mg/dL (Negative) 12/23/18 10:30 50 mg/dL (Negative) 12/23/18 10:30 Tr mg/dL (Negative) 12/23/18 10:30 Neg (Negative) 12/23/18 10:30 Neg (Negative) 12/23/18 10:30 Neg (Negative) 12/23/18 10:30 < 2.0 mg/dL (<2.0) 12/23/18 10:30 Ur Leukocyte Esterase Neg (Negative) 12/23/18 10:30 3.0 /HPF (0.0-6.0) 12/23/18 10:30 6.0 /HPF (0.0-6.0) 12/23/18 10:30 U Epithel Cells (Auto) 1.0 /HPF (0-13.0) 12/23/18 10:30 1+ /HPF (Negative) 12/23/18 10:30 Few /HPF 12/23/18 10:30 Presumptive negative 12/23/18 10:30 Presumptive negative 12/23/18 10:30 Ur Barbiturates Screen Presumptive negative 12/23/18 10:30 Ur Phencyclidine Scrn Presumptive negative 12/23/18 10:30 Ur Amphetamines Screen Presumptive negative 12/23/18 10:30 U Benzodiazepines Scrn Presumptive positive 12/23/18 10:30 Presumptive negative 12/23/18 10:30 U Marijuana (THC) Screen Presumptive negative 12/23/18 10:30 Disclamer 12/23/18 10:30 Plasma/Serum Alcohol < 0.01 % (0-0.07) 12/23/18 10:55 Active Medications - Current Medications Current Medications: Generic Name Dose Route Start Last Admin Trade Name Freq PRN Reason Stop Dose Admin Acetaminophen 650 mg 12/25/18 04:00 12/29/18 22:14 Tylenol PO 650 mg Q4H PRN Administration Pain MILD(1-3)/Fever >100.5/FLORES Acetaminophen 650 mg 12/25/18 13:50 12/25/18 13:58 Tylenol [place] 650 mg Q4H PRN Administration Pain, Mild (1-3) Amlodipine Besylate 5 mg 12/24/18 10:00 12/30/18 12:57 Norvasc PO 5 mg DAILY AKASH Administration Lipase/Protease/Amylase 1 each 12/27/18 15:18 Pancreaze 10,500 Unit FEEDTUBE PRN PRN For Clogged Feeding Tube Dextrose 50 ml 12/23/18 13:42 D50w (25gm) Syringe IV PRN PRN Hypoglycemia Duloxetine HCl 30 mg 12/23/18 22:00 12/30/18 12:52 Cymbalta PO 30 mg BID AKASH Administration Enoxaparin Sodium 40 mg 12/23/18 22:00 12/29/18 22:15 Lovenox SUB-Q 40 mg QDAY@2200 AKASH Administration Ferrous Sulfate 308 mg 12/25/18 10:00 12/29/18 10:54 Ferrous Sulfate PO 308 mg QDAY AKASH Administration Sodium Chloride 1,000 mls @ 75 mls/hr 12/24/18 18:00 12/29/18 07:48 Nacl 0.9% 1000 Ml IV 75 mls/hr DIRECT AKASH Administration Levetiracetam 1,000 mg/ 110 mls @ 400 mls/hr 12/26/18 14:00 12/30/18 02:45 Dextrose IV 12/30/18 23:59 400 mls/hr Q12H AKASH Administration Insulin Human Lispro 0 unit 12/27/18 18:00 12/30/18 13:02 Humalog SUB-Q 3 unit Q6HR AKASH Administration Protocol Lacosamide 100 mg 12/29/18 14:00 12/30/18 04:57 Vimpat PO 100 mg Q12H AKASH Administration Lansoprazole 30 mg 12/25/18 10:00 12/30/18 12:52 Prevacid Solutab FEEDTUBE 30 mg BID AKASH Administration Levetiracetam 1,000 mg 12/31/18 10:00 Keppra PO BID AKASH Levothyroxine Sodium 100 mcg 12/25/18 06:00 12/30/18 05:00 Synthroid PO 100 mcg DAILY@0600 AKASH Administration Lorazepam 1 mg 12/24/18 17:29 12/27/18 17:53 Ativan IV 1 mg Q4H PRN Administration Agitation Multivitamins 5 ml 12/25/18 10:00 12/29/18 10:54 Centrum Liq PO 5 ml QDAY AKASH Administration Ondansetron HCl 4 mg 12/23/18 13:27 12/24/18 09:28 Zofran IV 4 mg Q8H PRN Administration Nausea And Vomiting Potassium Phos/Sodium Phos 1 each 12/30/18 22:00 Phos-Nak PO Q8HR AKASH Scopolamine 1 each 12/30/18 06:00 12/30/18 05:00 Transderm-Scop TD 1 each Q3D AKASH Administration Simple Syrup 15 ml 12/27/18 15:18 Simple Syrup FEEDTUBE PRN PRN Hypoglycemia Simple Syrup 30 ml 12/27/18 15:18 Simple Syrup FEEDTUBE PRN PRN Hypoglycemia Sodium Bicarbonate 325 mg 12/27/18 15:18 Sodium Bicarbonate FEEDTUBE PRN PRN For Clogged Feeding Tube Sodium Chloride 10 ml 12/23/18 22:00 12/29/18 22:16 Sodium Chloride Flush Syringe 10 Ml IV 10 ml BID AKASH Administration Sodium Chloride 10 ml 12/23/18 13:27 Sodium Chloride Flush Syringe 10 Ml IV PRN PRN LINE FLUSH Nutrition/Malnutrition Assess - Dietary Evaluation Nutrition/Malnutrition Findings: Nutrition Notes Start: 12/24/18 10:03 Freq: Status: Active Protocol: Document 12/29/18 12:30 KS (Rec: 12/29/18 12:39 KS [id number]) Co-Sign 12/29/18 12:30 LM Nutrition Notes Initial or Follow up Reassessment Current Diagnosis COPD,Diabetes,Hypertension Other Pertinent Diagnosis CVA, Debility, Seizures, Encephalopathy, SIRS Current Diet Glucerna 1.2 at 55ml/hr Labs/Tests POC Glu - 183 Pertinent Medications Reviewed Height 5 ft 6 in Weight 77.6 kg [place] Body Weight (kg) 59.09 BMI 27.6 Subjective/Other Information TF at goal rate. Pt tolerating TF. 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 No Is Patient Ambulatory and/or Out of Bed No REE-([facility]-confined to bed) [phone] Calculation Used for Recommendations Mahendra V[place]la Additional Notes Protein Needs: 93-116g (1.2-1. 5g/kg) Fluid Needs: 1 ml/kcal Nutrition Intervention Change Diet Order: Continue TF Nutrition Support: Glucerna 1.2 at 55 ml/hr Water flush of 100 mls q 4 hrs Kcal 1,584 Protein (gm) 79 Fluid (mL) 1,063 Goal #1 TF tolerance Goal #2 Meet at least 75% of calorie and protein needs via TF Anticipated Discharge Needs: Unable to determine at this time Follow-Up By: 01/01/19 Additional Comments Follow for TF
[2018-12-30] MEDS: MULTIVITAMINS 5 ML ORAL LIQUID PO SCH (15:53)
[2018-12-30] MEDS: FERROUS SULFATE 308 MG (62mg Elemental Iron) / 7 ML ELIXIR PO SCH (15:53)
[2018-12-30] MEDS ORDERED: POTASSIUM CHLORIDE 20 MEQ PACKET FEEDTUBE ONE (16:00)
[2018-12-30] MEDS: ACETAMINOPHEN 325 MG/10.15 ML ORAL LIQD UNIT DOSE PO PRN (17:31)
[2018-12-30] MEDS: ENOXAPARIN 40 MG/0.4 ML INJ SUB-Q SCH (23:50)
[2018-12-30] MEDS: PHOS-NAK POWDER PACKET PO SCH (23:51)
[2018-12-31] MEDS: SODIUM CHLORIDE 0.9% 1000 ML 1,000 ML IV SCH (00:31)
[2018-12-31] MEDS: INSULIN LISPRO 100 UNIT/ML SUB-Q SCH ×5 (00:49→17:18)
[2018-12-31 04:33] LABS: BUN/Creatinine Ratio 20; Blood Urea Nitrogen 8 mg/dL (7-17); Calcium 8.9 mg/dL (8.4-10.2); Hemolysis Index 4
[2018-12-31] MEDS: PHOS-NAK POWDER PACKET PO SCH ×3 (05:22→22:09)
[2018-12-31] MEDS: LACOSAMIDE 100 MG TAB PO SCH ×2 (05:22→14:00)
[2018-12-31] MEDS: LEVOTHYROXINE 100 MCG TAB PO SCH (05:22)
[2018-12-31] MEDS ORDERED: POTASSIUM PHOSPHATE 30 MMOL in SODIUM CHLORIDE 0.9% 500 ML 500 ML IV ONE (09:00)
[2018-12-31] MEDS: MULTIVITAMINS 5 ML ORAL LIQUID PO SCH (11:51)
[2018-12-31] MEDS: levETIRAcetam 500 MG/5 ML ORAL LIQD PO SCH ×2 (11:51→22:09)
[2018-12-31] MEDS: LANSOPRAZOLE 30 MG SOLUTAB FEEDTUBE SCH ×2 (11:51→22:10)
[2018-12-31] MEDS: amLODIPine 5 MG TAB PO SCH (11:51)
[2018-12-31] MEDS: DULoxetine 30 MG CAP PO SCH ×2 (11:52→22:09)
[2018-12-31] MEDS: ACETAMINOPHEN 325 MG/10.15 ML ORAL LIQD UNIT DOSE PO PRN (12:02)
--- NOTE | 2018-12-31 13:10 | Progress Note ---
Assessment and Plan Assessment and plan: --Severe hypokalemia; replaced with oral and IV KCl, potassium levels normal --Hypomagnesemia: IV magnesium sulfate, normal magnesium today --Hypo phosphatemia; replace per protocol, continue oral phosphate --Seizure disorder; She did not have any episodes of seizures today, mild facial twitches , on antiepileptic medications [facility]y and [facility] Neurology following , continue seizure precautions --Acute CVA; left weakness Aspirin and statin, PT,OT rehabilitation. --Dysphagia/abnormal swallow eval; Continue Dobbhoff feedings, follow re-evaluation by speech If remains abnormal patient may need PEG placement --Gen.Debility PT/OT, supportive care Possible placement --Metabolic Encephalopathy Etiology secondary to CVA and seizure disorder. Continue to treat underlying causes. --Diabetes mellitus Continue Accu-Cheks and sliding scale insulin. --HTN (hypertension) Well control with medical management. --Hypothyroidism Continue Synthroid daily --DVT prophylaxis; Lovenox Monitor closely and adjust management as needed Neurology evaluation and recommendations noted and appreciated Discharge planning, case management when stable Plan of care is reviewed with the patient and her nurse History Interval history: Patient seen and examined medical records reviewed Patient is more alert and awake responding to simple questions appropriately Swallow evaluation to recommend to continue Dobbhoff feeds No new episodes of seizures Reevaluate again Vital signs reviewed Hospitalist Physical - Constitutional Vitals: Temp Pulse Resp BP Pulse Ox 98.4 F 99 H 18 151/62 98 12/31/18 09:09 12/31/18 12:59 12/31/18 12:59 12/31/18 09:09 12/31/18 12:59 General appearance: Present: no acute distress, well-nourished, other (responds appropriately) - EENT Eyes: Present: PERRL, EOM intact - Neck Neck: Present: supple, normal ROM - Respiratory Respiratory effort: normal Respiratory: bilateral: diminished, negative: rales, rhonchi, wheezing - Cardiovascular Rhythm: regular Heart Sounds: Present: S1 & S2 - Extremities Extremities: no ischemia, No edema - Abdominal General gastrointestinal: soft, non-tender, non-distended, normal bowel sounds - Integumentary Integumentary: Present: clear, warm - Psychiatric Psychiatric: appropriate mood/affect, cooperative, other (confused at times) - Neurologic Neurologic: moves all extremities Results - Labs CBC & Chem 7: 12/29/18 09:50 12/31/18 03:49 Labs: Laboratory Last Values WBC 10.9 K/mm3 (4.5-11.0) 12/29/18 09:50 RBC 3.89 M/mm3 (3.65-5.03) 12/29/18 09:50 Hgb 11.3 gm/dl (10.1-14.3) 12/29/18 09:50 Hct 34.5 % (30.3-42.9) 12/29/18 09:50 MCV 89 fl (79-97) 12/29/18 09:50 MCH 29 pg (28-32) 12/29/18 09:50 MCHC 33 % (30-34) 12/29/18 09:50 RDW 17.2 % (13.2-15.2) H 12/29/18 09:50 Plt Count 157 K/mm3 (140-440) 12/29/18 09:50 Lymph % (Auto) 11.8 % (13.4-35.0) L 12/29/18 09:50 [place] % (Auto) 5.9 % (0.0-7.3) 12/29/18 09:50 Eos % (Auto) 1.4 % (0.0-4.3) 12/29/18 09:50 Baso % (Auto) 0.2 % (0.0-1.8) 12/29/18 09:50 Lymph # 1.3 K/mm3 (1.2-5.4) 12/29/18 09:50 [place] # 0.6 K/mm3 (0.0-0.8) 12/29/18 09:50 Eos # 0.2 K/mm3 (0.0-0.4) 12/29/18 09:50 Baso # 0.0 K/mm3 (0.0-0.1) 12/29/18 09:50 Add Manual Diff Complete 12/29/18 09:50 Total Counted 100 12/29/18 09:50 Seg Neutrophils % 80.7 % (40.0-70.0) H 12/29/18 09:50 Seg Neuts % (Manual) 80.0 % (40.0-70.0) H 12/29/18 09:50 0 % 12/29/18 09:50 11.0 % (13.4-35.0) L 12/29/18 09:50 Reactive Lymphs % (Man) 0 % 12/29/18 09:50 4.0 % (0.0-7.3) 12/29/18 09:50 4.0 % (0.0-4.3) 12/29/18 09:50 1.0 % (0.0-1.8) 12/29/18 09:50 0 % 12/29/18 09:50 0 % 12/29/18 09:50 0 % 12/29/18 09:50 0 % 12/29/18 09:50 Nucleated RBC % Not Reportable 12/29/18 09:50 Seg Neutrophils # 8.8 K/mm3 (1.8-7.7) H 12/29/18 09:50 Seg Neutrophils # Man 8.7 K/mm3 (1.8-7.7) H 12/29/18 09:50 Band Neutrophils # 0.0 K/mm3 12/29/18 09:50 1.2 K/mm3 (1.2-5.4) 12/29/18 09:50 Abs React Lymphs (Man) 0.0 K/mm3 12/29/18 09:50 0.4 K/mm3 (0.0-0.8) 12/29/18 09:50 0.4 K/mm3 (0.0-0.4) 12/29/18 09:50 0.1 K/mm3 (0.0-0.1) 12/29/18 09:50 0.0 K/mm3 12/29/18 09:50 0.0 K/mm3 12/29/18 09:50 0.0 K/mm3 12/29/18 09:50 Blast Cells # 0.0 K/mm3 12/29/18 09:50 WBC Morphology Not Reportable 12/29/18 09:50 Hypersegmented Neuts Not Reportable 12/29/18 09:50 Hyposegmented Neuts Not Reportable 12/29/18 09:50 Hypogranular Neuts Not Reportable 12/29/18 09:50 Not Reportable 12/29/18 09:50 Not Reportable 12/29/18 09:50 Not Reportable 12/29/18 09:50 Not Reportable 12/29/18 09:50 Not Reportable 12/29/18 09:50 Not Reportable 12/29/18 09:50 Consistent w auto 12/29/18 09:50 Not Reportable 12/29/18 09:50 Plt Clumps, EDTA Not Reportable 12/29/18 09:50 Not Reportable 12/29/18 09:50 Not Reportable 12/29/18 09:50 Not Reportable 12/29/18 09:50 Plt Morphology Comment Not Reportable 12/29/18 09:50 RBC Morphology Not Reportable 12/29/18 09:50 Dimorphic RBCs Not Reportable 12/29/18 09:50 Not Reportable 12/29/18 09:50 Not Reportable 12/29/18 09:50 Few 12/29/18 09:50 Few 12/29/18 09:50 Not Reportable 12/29/18 09:50 Not Reportable 12/29/18 09:50 Not Reportable 12/29/18 09:50 Not Reportable 12/29/18 09:50 Not Reportable 12/29/18 09:50 Not Reportable 12/29/18 09:50 Not Reportable 12/29/18 09:50 Few 12/29/18 09:50 Not Reportable 12/29/18 09:50 Not Reportable 12/29/18 09:50 Not Reportable 12/29/18 09:50 Not Reportable 12/29/18 09:50 Not Reportable 12/29/18 09:50 Not Reportable 12/29/18 09:50 Rare 12/29/18 09:50 Acanthocytes (Spur) Not Reportable 12/29/18 09:50 Rouleaux Not Reportable 12/29/18 09:50 Not Reportable 12/29/18 09:50 Not Reportable 12/29/18 09:50 Not Reportable 12/29/18 09:50 Not Reportable 12/29/18 09:50 Hem Pathologist Commnt No 12/29/18 09:50 VBG pH 7.333 (7.320-7.420) 12/23/18 11:13 Sodium 137 mmol/L (137-145) 12/31/18 03:49 Potassium 3.9 mmol/L (3.6-5.0) D 12/31/18 03:49 Chloride 96.1 mmol/L (98-107) L 12/31/18 03:49 Carbon Dioxide 33 mmol/L (22-30) H 12/31/18 03:49 12 mmol/L 12/31/18 03:49 BUN 8 mg/dL (7-17) 12/31/18 03:49 0.4 mg/dL (0.7-1.2) L 12/31/18 03:49 Estimated GFR > 60 ml/min 12/31/18 03:49 20 % 12/31/18 03:49 Glucose 203 mg/dL (65-100) H 12/31/18 03:49 POC Glucose 249 (70-105) H 12/31/18 12:55 Lactic Acid 1.10 mmol/L (0.7-2.0) 12/23/18 20:07 Calcium 8.9 mg/dL (8.4-10.2) 12/31/18 03:49 Phosphorus 2.10 mg/dL (2.5-4.5) L 12/31/18 03:49 Magnesium 2.00 mg/dL (1.7-2.3) 12/31/18 03:49 0.90 mg/dL (0.1-1.2) 12/26/18 21:39 AST 13 units/L (5-40) 12/26/18 21:39 ALT 6 units/L (7-56) L 12/26/18 21:39 70 units/L (35-129) 12/26/18 21:39 65.0 umol/L (25-60) H 12/23/18 10:55 152 units/L (30-135) H 12/23/18 10:55 6.8 g/dL (6.3-8.2) 12/26/18 21:39 3.4 g/dL (3.9-5) L 12/26/18 21:39 1.0 % 12/26/18 21:39 TSH 0.007 mlU/mL (0.270-4.200) L 12/23/18 10:55 Free T4 1.89 ng/dL (0.76-1.46) H 12/23/18 10:55 Yellow (Yellow) 12/23/18 10:30 Slightly-cloudy (Clear) 12/23/18 10:30 6.0 (5.0-7.0) 12/23/18 10:30 Ur Specific [place] 1.015 (1.003-1.030) 12/23/18 10:30 >500 mg/dL (Negative) 12/23/18 10:30 50 mg/dL (Negative) 12/23/18 10:30 Tr mg/dL (Negative) 12/23/18 10:30 Neg (Negative) 12/23/18 10:30 Neg (Negative) 12/23/18 10:30 Neg (Negative) 12/23/18 10:30 < 2.0 mg/dL (<2.0) 12/23/18 10:30 Ur Leukocyte Esterase Neg (Negative) 12/23/18 10:30 3.0 /HPF (0.0-6.0) 12/23/18 10:30 6.0 /HPF (0.0-6.0) 12/23/18 10:30 U Epithel Cells (Auto) 1.0 /HPF (0-13.0) 12/23/18 10:30 1+ /HPF (Negative) 12/23/18 10:30 Few /HPF 12/23/18 10:30 Presumptive negative 12/23/18 10:30 Presumptive negative 12/23/18 10:30 Ur Barbiturates Screen Presumptive negative 12/23/18 10:30 Ur Phencyclidine Scrn Presumptive negative 12/23/18 10:30 Ur Amphetamines Screen Presumptive negative 12/23/18 10:30 U Benzodiazepines Scrn Presumptive positive 12/23/18 10:30 Presumptive negative 12/23/18 10:30 U Marijuana (THC) Screen Presumptive negative 12/23/18 10:30 Disclamer 12/23/18 10:30 Plasma/Serum Alcohol < 0.01 % (0-0.07) 12/23/18 10:55 Active Medications - Current Medications Current Medications: Generic Name Dose Route Start Last Admin Trade Name Freq PRN Reason Stop Dose Admin Acetaminophen 650 mg 12/25/18 04:00 12/31/18 12:02 Tylenol PO 650 mg Q4H PRN Administration Pain MILD(1-3)/Fever >100.5/FLORES Acetaminophen 650 mg 12/25/18 13:50 12/25/18 13:58 Tylenol OR 650 mg Q4H PRN Administration Pain, Mild (1-3) Amlodipine Besylate 5 mg 12/24/18 10:00 12/31/18 11:51 Norvasc PO 5 mg DAILY AKASH Administration Lipase/Protease/Amylase 1 each 12/27/18 15:18 Pancreaze 10,500 Unit FEEDTUBE PRN PRN For Clogged Feeding Tube Dextrose 50 ml 12/23/18 13:42 D50w (25gm) Syringe IV PRN PRN Hypoglycemia Duloxetine HCl 30 mg 12/23/18 22:00 12/31/18 11:52 Cymbalta PO 30 mg BID AKASH Administration Enoxaparin Sodium 40 mg 12/23/18 22:00 12/30/18 23:50 Lovenox SUB-Q 40 mg QDAY@2200 AKASH Administration Ferrous Sulfate 308 mg 12/25/18 10:00 12/30/18 15:53 Ferrous Sulfate PO 308 mg QDAY AKASH Administration Sodium Chloride 1,000 mls @ 75 mls/hr 12/24/18 18:00 12/31/18 00:31 Nacl 0.9% 1000 Ml IV 75 mls/hr DIRECT AKASH Administration Potassium Phosphate 30 mmol/ 510 mls @ 83 mls/hr 12/31/18 09:00 12/31/18 11:52 Sodium Chloride IV 12/31/18 15:08 83 mls/hr ONCE ONE Administration Insulin Human Lispro 0 unit 12/27/18 18:00 12/31/18 08:04 Humalog SUB-Q Not Given Q6HR [facility] Protocol Lacosamide 100 mg 12/29/18 14:00 12/31/18 05:22 Vimpat PO 100 mg Q12H AKASH Administration Lansoprazole 30 mg 12/25/18 10:00 12/31/18 11:51 Prevacid Solutab FEEDTUBE 30 mg BID AKASH Administration Levetiracetam 1,000 mg 12/31/18 10:00 12/31/18 11:51 Keppra PO 1,000 mg BID AKASH Administration Levothyroxine Sodium 100 mcg 12/25/18 06:00 12/31/18 05:22 Synthroid PO 100 mcg DAILY@0600 AKASH Administration Lorazepam 1 mg 12/24/18 17:29 12/27/18 17:53 Ativan IV 1 mg Q4H PRN Administration Agitation Multivitamins 5 ml 12/25/18 10:00 12/31/18 11:51 Centrum Liq PO 5 ml QDAY AKASH Administration Ondansetron HCl 4 mg 12/23/18 13:27 12/24/18 09:28 Zofran IV 4 mg Q8H PRN Administration Nausea And Vomiting Potassium Phos/Sodium Phos 1 each 12/30/18 22:00 12/31/18 05:22 Phos-Nak PO 1 each Q8HR AKASH Administration Scopolamine 1 each 12/30/18 06:00 12/30/18 05:00 Transderm-Scop TD 1 each Q3D AKASH Administration Simple Syrup 15 ml 12/27/18 15:18 Simple Syrup FEEDTUBE PRN PRN Hypoglycemia Simple Syrup 30 ml 12/27/18 15:18 Simple Syrup FEEDTUBE PRN PRN Hypoglycemia Sodium Bicarbonate 325 mg 12/27/18 15:18 Sodium Bicarbonate FEEDTUBE PRN PRN For Clogged Feeding Tube Sodium Chloride 10 ml 12/23/18 22:00 12/31/18 11:52 Sodium Chloride Flush Syringe 10 Ml IV 10 ml BID AKASH Administration Sodium Chloride 10 ml 12/23/18 13:27 Sodium Chloride Flush Syringe 10 Ml IV PRN PRN LINE FLUSH Nutrition/Malnutrition Assess - Dietary Evaluation Nutrition/Malnutrition Findings: Nutrition Notes Start: 12/24/18 10:03 Freq: Status: Active Protocol: Document 12/29/18 12:30 KS (Rec: 12/29/18 12:39 KS [id number]) Co-Sign 12/29/18 12:30 LM Nutrition Notes Initial or Follow up Reassessment Current Diagnosis COPD,Diabetes,Hypertension Other Pertinent Diagnosis CVA, Debility, Seizures, Encephalopathy, SIRS Current Diet Glucerna 1.2 at 55ml/hr Labs/Tests POC Glu - 183 Pertinent Medications Reviewed Height 5 ft 6 in Weight 77.6 kg [place] Body Weight (kg) 59.09 BMI 27.6 Subjective/Other Information TF at goal rate. Pt tolerating TF. Percent of energy/protein needs met: 101%/85% Burn Absent Trauma Absent Minimum of two criteria Yes Energy Intake (severe) < or equal to 50% Estimated Energy Requirement > or equal to 5 days Fluid Accumulation Moderate to Severe (severe) Reduced Supervisor Assembly Strength Measurably Reduced (severe) #1 Nutrition Diagnosis Malnutrition Diagnosis Progress(for reassessment Continues documentation) Is patient on ventilator? No Is Patient Ambulatory and/or Out of Bed No REE-([facility]-confined to bed) 2449.372 Calculation Used for Recommendations [facility] Additional Notes Protein Needs: 93-116g (1.2-1. 5g/kg) Fluid Needs: 1 ml/kcal Nutrition Intervention Change Diet Order: Continue TF Nutrition Support: Glucerna 1.2 at 55 ml/hr Water flush of 100 mls q 4 hrs Kcal 1,584 Protein (gm) 79 Fluid (mL) 1,063 Goal #1 TF tolerance Goal #2 Meet at least 75% of calorie and protein needs via TF Anticipated Discharge Needs: Unable to determine at this time Follow-Up By: 01/01/19 Additional Comments Follow for TF
[2018-12-31] MEDS: FERROUS SULFATE 308 MG (62mg Elemental Iron) / 7 ML ELIXIR PO SCH (17:17)
[2018-12-31] MEDS: ENOXAPARIN 40 MG/0.4 ML INJ SUB-Q SCH (22:10)
--- NOTE | 2019-01-01 01:22 | XRay Report ---
ABDOMEN 1 VIEW(S) INDICATION / CLINICAL INFORMATION: dobhoff placement. COMPARISON: 12/27/2018. FINDINGS: TUBES / LINES: The tip of the feeding tube projects over the body of the stomach. BOWEL GAS PATTERN/EXTRALUMINAL GAS: No significant abnormality. No pneumatosis or secondary signs of free air. ADDITIONAL FINDINGS: No significant additional findings. IMPRESSION: 1. Feeding tube tip projects over the body of the stomach. Signer Name: Breezy Barcenas MD Signed: 01/01/2019 1:18 AM Workstation Name: [employer]
[2019-01-01] MEDS: INSULIN LISPRO 100 UNIT/ML SUB-Q SCH ×4 (02:30→18:21)
[2019-01-01] MEDS: LACOSAMIDE 100 MG TAB PO SCH ×2 (03:20→13:00)
[2019-01-01] MEDS: ACETAMINOPHEN 325 MG/10.15 ML ORAL LIQD UNIT DOSE PO PRN ×3 (03:21→23:07)
[2019-01-01] MEDS: PHOS-NAK POWDER PACKET PO SCH ×3 (05:40→22:50)
[2019-01-01] MEDS: LEVOTHYROXINE 100 MCG TAB PO SCH (05:40)
[2019-01-01 06:24] LABS: BUN/Creatinine Ratio 20; Blood Urea Nitrogen 8 mg/dL (7-17); Calcium 8.6 mg/dL (8.4-10.2); Hemolysis Index 14
--- NOTE | 2019-01-01 07:47 | Progress Note ---
Subjective Date of service: 01/01/19 Interval history: plan EEG to determine next step in care plan Objective - Vital Sign Vital Signs - 12hr 12/31/18 12/31/18 12/31/18 19:56 20:01 23:35 Temperature 98.0 F 98.0 F Pulse Rate 94 H 94 H 99 H Respiratory 18 18 Rate Blood Pressure 152/79 163/85 O2 Sat by Pulse 100 100 Oximetry 01/01/19 01/01/19 03:21 07:40 Temperature 98.7 F Pulse Rate 91 H Respiratory 18 18 Rate Blood Pressure 157/81 O2 Sat by Pulse 100 Oximetry - Laboratory Findings CBC and BMP: 12/29/18 09:50 01/01/19 05:08 Abnormal Lab Findings: Abnormal Labs 12/23/18 12/23/18 12/23/18 10:55 10:55 10:55 WBC 15.6 H RDW 18.2 H Lymph % (Auto) [place] % (Auto) [place] # Seg Neutrophils % Seg Neuts % (Manual) 92.0 H Lymphocytes % (Manual) 6.0 L Seg Neutrophils # Seg Neutrophils # Man 14.4 H Lymphocytes # (Manual) 0.9 L Potassium Chloride Carbon Dioxide BUN 5 L Creatinine 0.5 L Glucose 184 H POC Glucose Lactic Acid Phosphorus Magnesium ALT Ammonia 65.0 H Total Creatine Kinase Albumin TSH Free T4 12/23/18 12/23/18 12/23/18 10:55 10:55 10:55 WBC RDW Lymph % (Auto) [place] % (Auto) [place] # Seg Neutrophils % Seg Neuts % (Manual) Lymphocytes % (Manual) Seg Neutrophils # Seg Neutrophils # Man Lymphocytes # (Manual) Potassium Chloride Carbon Dioxide BUN Creatinine Glucose POC Glucose Lactic Acid Phosphorus Magnesium ALT Ammonia Total Creatine Kinase 152 H Albumin TSH 0.007 L Free T4 1.89 H 12/23/18 12/23/18 12/23/18 11:09 13:41 16:55 WBC RDW Lymph % (Auto) [place] % (Auto) [place] # Seg Neutrophils % Seg Neuts % (Manual) Lymphocytes % (Manual) Seg Neutrophils # Seg Neutrophils # Man Lymphocytes # (Manual) Potassium Chloride Carbon Dioxide BUN Creatinine Glucose POC Glucose 203 H 201 H Lactic Acid 2.20 H* Phosphorus Magnesium ALT Ammonia Total Creatine Kinase Albumin TSH Free T4 12/23/18 12/24/18 12/24/18 21:29 00:41 08:05 WBC RDW Lymph % (Auto) [place] % (Auto) [place] # Seg Neutrophils % Seg Neuts % (Manual) Lymphocytes % (Manual) Seg Neutrophils # Seg Neutrophils # Man Lymphocytes # (Manual) Potassium 3.0 L D Chloride Carbon Dioxide BUN Creatinine Glucose POC Glucose 161 H 161 H Lactic Acid Phosphorus Magnesium 1.60 L ALT Ammonia Total Creatine Kinase Albumin TSH Free T4 12/24/18 12/24/18 12/24/18 11:41 16:31 21:54 WBC RDW Lymph % (Auto) [place] % (Auto) [place] # Seg Neutrophils % Seg Neuts % (Manual) Lymphocytes % (Manual) Seg Neutrophils # Seg Neutrophils # Man Lymphocytes # (Manual) Potassium Chloride Carbon Dioxide BUN Creatinine Glucose POC Glucose 199 H 146 H 178 H Lactic Acid Phosphorus Magnesium ALT Ammonia Total Creatine Kinase Albumin TSH Free T4 12/25/18 12/25/18 12/25/18 06:03 06:03 07:19 WBC RDW 17.4 H Lymph % (Auto) [place] % (Auto) 11.9 H [place] # 0.9 H Seg Neutrophils % Seg Neuts % (Manual) Lymphocytes % (Manual) Seg Neutrophils # Seg Neutrophils # Man Lymphocytes # (Manual) Potassium 3.2 L Chloride 94.4 L Carbon Dioxide 31 H BUN Creatinine 0.5 L Glucose 187 H POC Glucose 170 H Lactic Acid Phosphorus Magnesium ALT Ammonia Total Creatine Kinase Albumin TSH Free T4 12/25/18 12/25/18 12/25/18 11:40 16:47 22:00 WBC RDW Lymph % (Auto) [place] % (Auto) [place] # Seg Neutrophils % Seg Neuts % (Manual) Lymphocytes % (Manual) Seg Neutrophils # Seg Neutrophils # Man Lymphocytes # (Manual) Potassium Chloride Carbon Dioxide BUN Creatinine Glucose POC Glucose 188 H 169 H 178 H Lactic Acid Phosphorus Magnesium ALT Ammonia Total Creatine Kinase Albumin TSH Free T4 12/26/18 12/26/18 12/26/18 07:08 08:24 11:41 WBC RDW 17.0 H Lymph % (Auto) [place] % (Auto) 12.7 H [place] # 1.3 H Seg Neutrophils % 71.1 H Seg Neuts % (Manual) Lymphocytes % (Manual) Seg Neutrophils # Seg Neutrophils # Man Lymphocytes # (Manual) Potassium Chloride Carbon Dioxide BUN Creatinine Glucose POC Glucose 179 H 221 H Lactic Acid Phosphorus Magnesium ALT Ammonia Total Creatine Kinase Albumin TSH Free T4 12/26/18 12/26/1819 16:39 20:42 21:39 WBC RDW Lymph % (Auto) [place] % (Auto) [place] # Seg Neutrophils % Seg Neuts % (Manual) Lymphocytes % (Manual) Seg Neutrophils # Seg Neutrophils # Man Lymphocytes # (Manual) Potassium 3.2 L Chloride 92.8 L Carbon Dioxide BUN Creatinine 0.6 L Glucose 222 H POC Glucose 239 H 212 H Lactic Acid Phosphorus Magnesium ALT 6 L Ammonia Total Creatine Kinase Albumin 3.4 L TSH Free T4 12/27/18 12/27/18 12/27/18 08:22 11:43 18:13 WBC RDW Lymph % (Auto) [place] % (Auto) [place] # Seg Neutrophils % Seg Neuts % (Manual) Lymphocytes % (Manual) Seg Neutrophils # Seg Neutrophils # Man Lymphocytes # (Manual) Potassium Chloride Carbon Dioxide BUN Creatinine Glucose POC Glucose 218 H 185 H 164 H Lactic Acid Phosphorus Magnesium ALT Ammonia Total Creatine Kinase Albumin TSH Free T4 12/27/18 12/28/18 12/28/18 23:27 06:03 11:54 WBC RDW Lymph % (Auto) [place] % (Auto) [place] # Seg Neutrophils % Seg Neuts % (Manual) Lymphocytes % (Manual) Seg Neutrophils # Seg Neutrophils # Man Lymphocytes # (Manual) Potassium Chloride Carbon Dioxide BUN Creatinine Glucose POC Glucose 199 H 182 H 277 H Lactic Acid Phosphorus Magnesium ALT Ammonia Total Creatine Kinase Albumin TSH Free T4 12/28/18 12/28/18 12/29/18 18:00 23:44 05:52 WBC RDW Lymph % (Auto) [place] % (Auto) [place] # Seg Neutrophils % Seg Neuts % (Manual) Lymphocytes % (Manual) Seg Neutrophils # Seg Neutrophils # Man Lymphocytes # (Manual) Potassium Chloride Carbon Dioxide BUN Creatinine Glucose POC Glucose 145 H 192 H 183 H Lactic Acid Phosphorus Magnesium ALT Ammonia Total Creatine Kinase Albumin TSH Free T4 12/29/18 12/29/18 12/29/18 08:09 09:50 12:28 WBC RDW 17.2 H Lymph % (Auto) 11.8 L [place] % (Auto) [place] # Seg Neutrophils % 80.7 H Seg Neuts % (Manual) 80.0 H Lymphocytes % (Manual) 11.0 L Seg Neutrophils # 8.8 H Seg Neutrophils # Man 8.7 H Lymphocytes # (Manual) Potassium Chloride Carbon Dioxide BUN Creatinine 0.5 L Glucose 190 H POC Glucose 177 H Lactic Acid Phosphorus Magnesium ALT Ammonia Total Creatine Kinase Albumin TSH Free T4 12/29/18 12/30/18 12/30/18 18:06 01:25 04:49 WBC RDW Lymph % (Auto) [place] % (Auto) [place] # Seg Neutrophils % Seg Neuts % (Manual) Lymphocytes % (Manual) Seg Neutrophils # Seg Neutrophils # Man Lymphocytes # (Manual) Potassium 2.9 L* D Chloride Carbon Dioxide 33 H BUN Creatinine 0.4 L Glucose 216 H POC Glucose 206 H 190 H Lactic Acid Phosphorus 1.90 L Magnesium 1.60 L ALT Ammonia Total Creatine Kinase Albumin TSH Free T4 12/30/18 12/30/18 12/30/18 05:25 12:13 13:29 WBC RDW Lymph % (Auto) [place] % (Auto) [place] # Seg Neutrophils % Seg Neuts % (Manual) Lymphocytes % (Manual) Seg Neutrophils # Seg Neutrophils # Man Lymphocytes # (Manual) Potassium Chloride Carbon Dioxide BUN Creatinine Glucose POC Glucose 226 H 233 H Lactic Acid Phosphorus Magnesium 1.60 L ALT Ammonia Total Creatine Kinase Albumin TSH Free T4 12/31/18 12/31/18 12/31/18 00:05 03:49 05:45 WBC RDW Lymph % (Auto) [place] % (Auto) [place] # Seg Neutrophils % Seg Neuts % (Manual) Lymphocytes % (Manual) Seg Neutrophils # Seg Neutrophils # Man Lymphocytes # (Manual) Potassium Chloride 96.1 L Carbon Dioxide 33 H BUN Creatinine 0.4 L Glucose 203 H POC Glucose 270 H 214 H Lactic Acid Phosphorus 2.10 L Magnesium ALT Ammonia Total Creatine Kinase Albumin TSH Free T4 12/31/18 01/01/19 01/01/19 12:55 00:58 05:08 WBC RDW Lymph % (Auto) [place] % (Auto) [place] # Seg Neutrophils % Seg Neuts % (Manual) Lymphocytes % (Manual) Seg Neutrophils # Seg Neutrophils # Man Lymphocytes # (Manual) Potassium Chloride Carbon Dioxide BUN Creatinine 0.4 L Glucose 222 H POC Glucose 249 H 256 H Lactic Acid Phosphorus Magnesium ALT Ammonia Total Creatine Kinase Albumin TSH Free T4 01/01/19 06:27 WBC RDW Lymph % (Auto) [place] % (Auto) [place] # Seg Neutrophils % Seg Neuts % (Manual) Lymphocytes % (Manual) Seg Neutrophils # Seg Neutrophils # Man Lymphocytes # (Manual) Potassium Chloride Carbon Dioxide BUN Creatinine Glucose POC Glucose 217 H Lactic Acid Phosphorus Magnesium ALT Ammonia Total Creatine Kinase Albumin TSH Free T4
[2019-01-01] MEDS: glipiZIDE XL 5 MG TAB PO SCH (08:00)
[2019-01-01] MEDS: SODIUM CHLORIDE 0.9% 1000 ML 1,000 ML IV SCH ×2 (08:57→22:48)
[2019-01-01] MEDS: levETIRAcetam 500 MG/5 ML ORAL LIQD PO SCH ×2 (11:11→22:49)
[2019-01-01] MEDS: LANSOPRAZOLE 30 MG SOLUTAB FEEDTUBE SCH ×2 (11:11→22:50)
[2019-01-01] MEDS: MULTIVITAMINS 5 ML ORAL LIQUID PO SCH (11:12)
[2019-01-01] MEDS: FERROUS SULFATE 308 MG (62mg Elemental Iron) / 7 ML ELIXIR PO SCH (11:12)
[2019-01-01] MEDS: DULoxetine 30 MG CAP PO SCH ×2 (11:14→22:50)
[2019-01-01] MEDS: amLODIPine 5 MG TAB PO SCH (11:14)
[2019-01-01 17:45] LABS: Chol/HDL Ratio 4.48 %
[2019-01-01] MEDS: INSULIN NPH/REGULAR 70/30 INJ SUB-Q SCH (18:21)
--- NOTE | 2019-01-01 21:16 | Progress Note ---
Assessment and Plan Assessment and plan: --Seizure disorder; She did not have any episodes of seizures today, mild facial twitches , on antiepileptic medications [facility] following , continue seizure precautions --Dysphagia/abnormal swallow eval; Continue [place]obb[place] feedings, follow re-evaluation by speech Swallow Evaluation abnormal patient may need PEG placement GI Evaluation --Gen.Debility PT/OT, supportive care --Severe hypokalemia; replaced with oral and IV KCl, potassium levels normal --Hypomagnesemia: IV magnesium sulfate, normal magnesium today --Hypo phosphatemia; replace per protocol, continue oral phosphate --Acute CVA; left weakness Aspirin and statin, PT,OT rehabilitation. Possible placement --Metabolic Encephalopathy Etiology secondary to CVA and seizure disorder. Continue to treat underlying causes. --Diabetes mellitus Continue Accu-Cheks and sliding scale insulin. --HTN (hypertension) Well control with medical management. --Hypothyroidism Continue Synthroid daily --DVT prophylaxis; Lovenox Monitor closely and adjust management as needed Neurology evaluation and recommendations noted and appreciated Discharge planning, case management when stable Plan of care is reviewed with the patient and her nurse History Interval history: Seen and examined this morning medical records reviewed Patient continues to have mild twitching of the face No active seizures, Receiving tube feedings Failed swallow evaluation Signs noted Hospitalist Physical - Constitutional Vitals: Temp Pulse Resp BP Pulse Ox 97.4 F L 42 L 18 103/33 100 01/01/19 19:10 01/01/19 19:10 01/01/19 19:10 01/01/19 19:10 01/01/19 19:10 General appearance: Present: no acute distress, well-nourished, other (responds appropriately) - EENT Eyes: Present: PERRL, EOM intact - Neck Neck: Present: supple, normal ROM - Respiratory Respiratory effort: normal Respiratory: bilateral: diminished, negative: rales, rhonchi, wheezing - Cardiovascular Rhythm: regular Heart Sounds: Present: S1 & S2 - Extremities Extremities: no ischemia, No edema - Abdominal General gastrointestinal: soft, non-tender, non-distended, normal bowel sounds - Integumentary Integumentary: Present: clear, warm - Psychiatric Psychiatric: appropriate mood/affect, other (minimally communicative) - Neurologic Neurologic: other (left-sided hemiparesis) Results - Labs CBC & Chem 7: 12/29/18 09:50 01/01/19 05:08 Labs: Laboratory Last Values WBC 10.9 K/mm3 (4.5-11.0) 12/29/18 09:50 RBC 3.89 M/mm3 (3.65-5.03) 12/29/18 09:50 Hgb 11.3 gm/dl (10.1-14.3) 12/29/18 09:50 Hct 34.5 % (30.3-42.9) 12/29/18 09:50 MCV 89 fl (79-97) 12/29/18 09:50 MCH 29 pg (28-32) 12/29/18 09:50 MCHC 33 % (30-34) 12/29/18 09:50 RDW 17.2 % (13.2-15.2) H 12/29/18 09:50 Plt Count 157 K/mm3 (140-440) 12/29/18 09:50 Lymph % (Auto) 11.8 % (13.4-35.0) L 12/29/18 09:50 [place] % (Auto) 5.9 % (0.0-7.3) 12/29/18 09:50 Eos % (Auto) 1.4 % (0.0-4.3) 12/29/18 09:50 Baso % (Auto) 0.2 % (0.0-1.8) 12/29/18 09:50 Lymph # 1.3 K/mm3 (1.2-5.4) 12/29/18 09:50 [place] # 0.6 K/mm3 (0.0-0.8) 12/29/18 09:50 Eos # 0.2 K/mm3 (0.0-0.4) 12/29/18 09:50 Baso # 0.0 K/mm3 (0.0-0.1) 12/29/18 09:50 Add Manual Diff Complete 12/29/18 09:50 Total Counted 100 12/29/18 09:50 Seg Neutrophils % 80.7 % (40.0-70.0) H 12/29/18 09:50 Seg Neuts % (Manual) 80.0 % (40.0-70.0) H 12/29/18 09:50 0 % 12/29/18 09:50 11.0 % (13.4-35.0) L 12/29/18 09:50 Reactive Lymphs % (Man) 0 % 12/29/18 09:50 4.0 % (0.0-7.3) 12/29/18 09:50 4.0 % (0.0-4.3) 12/29/18 09:50 1.0 % (0.0-1.8) 12/29/18 09:50 0 % 12/29/18 09:50 0 % 12/29/18 09:50 0 % 12/29/18 09:50 0 % 12/29/18 09:50 Nucleated RBC % Not Reportable 12/29/18 09:50 Seg Neutrophils # 8.8 K/mm3 (1.8-7.7) H 12/29/18 09:50 Seg Neutrophils # Man 8.7 K/mm3 (1.8-7.7) H 12/29/18 09:50 Band Neutrophils # 0.0 K/mm3 12/29/18 09:50 1.2 K/mm3 (1.2-5.4) 12/29/18 09:50 Abs React Lymphs (Man) 0.0 K/mm3 12/29/18 09:50 0.4 K/mm3 (0.0-0.8) 12/29/18 09:50 0.4 K/mm3 (0.0-0.4) 12/29/18 09:50 0.1 K/mm3 (0.0-0.1) 12/29/18 09:50 0.0 K/mm3 12/29/18 09:50 0.0 K/mm3 12/29/18 09:50 0.0 K/mm3 12/29/18 09:50 Blast Cells # 0.0 K/mm3 12/29/18 09:50 WBC Morphology Not Reportable 12/29/18 09:50 Hypersegmented Neuts Not Reportable 12/29/18 09:50 Hyposegmented Neuts Not Reportable 12/29/18 09:50 Hypogranular Neuts Not Reportable 12/29/18 09:50 Not Reportable 12/29/18 09:50 Not Reportable 12/29/18 09:50 Not Reportable 12/29/18 09:50 Not Reportable 12/29/18 09:50 Not Reportable 12/29/18 09:50 Not Reportable 12/29/18 09:50 Consistent w auto 12/29/18 09:50 Not Reportable 12/29/18 09:50 Plt Clumps, EDTA Not Reportable 12/29/18 09:50 Not Reportable 12/29/18 09:50 Not Reportable 12/29/18 09:50 Not Reportable 12/29/18 09:50 Plt Morphology Comment Not Reportable 12/29/18 09:50 RBC Morphology Not Reportable 12/29/18 09:50 Dimorphic RBCs Not Reportable 12/29/18 09:50 Not Reportable 12/29/18 09:50 Not Reportable 12/29/18 09:50 Few 12/29/18 09:50 Few 12/29/18 09:50 Not Reportable 12/29/18 09:50 Not Reportable 12/29/18 09:50 Not Reportable 12/29/18 09:50 Not Reportable 12/29/18 09:50 Not Reportable 12/29/18 09:50 Not Reportable 12/29/18 09:50 Not Reportable 12/29/18 09:50 Few 12/29/18 09:50 Not Reportable 12/29/18 09:50 Not Reportable 12/29/18 09:50 Not Reportable 12/29/18 09:50 Not Reportable 12/29/18 09:50 Not Reportable 12/29/18 09:50 Not Reportable 12/29/18 09:50 Rare 12/29/18 09:50 Acanthocytes (Spur) Not Reportable 12/29/18 09:50 Rouleaux Not Reportable 12/29/18 09:50 Not Reportable 12/29/18 09:50 Not Reportable 12/29/18 09:50 Not Reportable 12/29/18 09:50 Not Reportable 12/29/18 09:50 Hem Pathologist Commnt No 12/29/18 09:50 VBG pH 7.333 (7.320-7.420) 12/23/18 11:13 Sodium 137 mmol/L (137-145) 01/01/19 05:08 Potassium 4.5 mmol/L (3.6-5.0) 01/01/19 05:08 Chloride 98.0 mmol/L (98-107) 01/01/19 05:08 Carbon Dioxide 29 mmol/L (22-30) 01/01/19 05:08 15 mmol/L 01/01/19 05:08 BUN 8 mg/dL (7-17) 01/01/19 05:08 0.4 mg/dL (0.7-1.2) L 01/01/19 05:08 Estimated GFR > 60 ml/min 01/01/19 05:08 20 % 01/01/19 05:08 Glucose 222 mg/dL (65-100) H 01/01/19 05:08 POC Glucose 113 (70-105) H 01/01/19 18:25 5.9 % (4-6) 01/01/19 05:08 Lactic Acid 1.10 mmol/L (0.7-2.0) 12/23/18 20:07 Calcium 8.6 mg/dL (8.4-10.2) 01/01/19 05:08 Phosphorus 2.10 mg/dL (2.5-4.5) L 12/31/18 03:49 Magnesium 1.90 mg/dL (1.7-2.3) 01/01/19 05:08 0.90 mg/dL (0.1-1.2) 12/26/18 21:39 AST 13 units/L (5-40) 12/26/18 21:39 ALT 6 units/L (7-56) L 12/26/18 21:39 70 units/L (35-129) 12/26/18 21:39 65.0 umol/L (25-60) H 12/23/18 10:55 152 units/L (30-135) H 12/23/18 10:55 6.8 g/dL (6.3-8.2) 12/26/18 21:39 3.4 g/dL (3.9-5) L 12/26/18 21:39 1.0 % 12/26/18 21:39 Triglycerides 110 mg/dL (2-149) 01/01/19 17:12 Cholesterol 157 mg/dL (50-199) 01/01/19 17:12 112 mg/dL (50-130) 01/01/19 17:12 35 mg/dL (40-59) L 01/01/19 17:12 4.48 % 01/01/19 17:12 TSH 0.007 mlU/mL (0.270-4.200) L 12/23/18 10:55 Free T4 1.89 ng/dL (0.76-1.46) H 12/23/18 10:55 Yellow (Yellow) 12/23/18 10:30 Slightly-cloudy (Clear) 12/23/18 10:30 6.0 (5.0-7.0) 12/23/18 10:30 Ur Specific [place] 1.015 (1.003-1.030) 12/23/18 10:30 >500 mg/dL (Negative) 12/23/18 10:30 50 mg/dL (Negative) 12/23/18 10:30 Tr mg/dL (Negative) 12/23/18 10:30 Neg (Negative) 12/23/18 10:30 Neg (Negative) 12/23/18 10:30 Neg (Negative) 12/23/18 10:30 < 2.0 mg/dL (<2.0) 12/23/18 10:30 Ur Leukocyte Esterase Neg (Negative) 12/23/18 10:30 3.0 /HPF (0.0-6.0) 12/23/18 10:30 6.0 /HPF (0.0-6.0) 12/23/18 10:30 U Epithel Cells (Auto) 1.0 /HPF (0-13.0) 12/23/18 10:30 1+ /HPF (Negative) 12/23/18 10:30 Few /HPF 12/23/18 10:30 Presumptive negative 12/23/18 10:30 Presumptive negative 12/23/18 10:30 Ur Barbiturates Screen Presumptive negative 12/23/18 10:30 Ur Phencyclidine Scrn Presumptive negative 12/23/18 10:30 Ur Amphetamines Screen Presumptive negative 12/23/18 10:30 U Benzodiazepines Scrn Presumptive positive 12/23/18 10:30 Presumptive negative 12/23/18 10:30 U Marijuana (THC) Screen Presumptive negative 12/23/18 10:30 Disclamer 12/23/18 10:30 Plasma/Serum Alcohol < 0.01 % (0-0.07) 12/23/18 10:55 Active Medications - Current Medications Current Medications: Generic Name Dose Route Start Last Admin Trade Name Freq PRN Reason Stop Dose Admin Acetaminophen 650 mg 12/25/18 04:00 01/01/19 12:44 Tylenol PO 650 mg Q4H PRN Administration Pain MILD(1-3)/Fever >100.5/FLORES Acetaminophen 650 mg 12/25/18 13:50 12/25/18 13:58 Tylenol [place] 650 mg Q4H PRN Administration Pain, Mild (1-3) Amlodipine Besylate 5 mg 12/24/18 10:00 01/01/19 11:14 Norvasc PO Not Given DAILY AKASH Lipase/Protease/Amylase 1 each 12/27/18 15:18 Pancreaze 10,500 Unit FEEDTUBE PRN PRN For Clogged Feeding Tube Dextrose 50 ml 12/23/18 13:42 D50w (25gm) Syringe IV PRN PRN Hypoglycemia Diphenhydramine HCl 25 mg 01/01/19 16:19 Benadryl PO QHS PRN Itching Duloxetine HCl 30 mg 12/23/18 22:00 01/01/19 11:14 Cymbalta PO 30 mg BID KAASH Administration Enoxaparin Sodium 40 mg 12/23/18 22:00 12/31/18 22:10 Lovenox SUB-Q 40 mg QDAY@2200 AKASH Administration Ferrous Sulfate 308 mg 12/25/18 10:00 01/01/19 11:12 Ferrous Sulfate PO 308 mg QDAY AKASH Administration Glipizide 5 mg 01/01/19 08:00 01/01/19 08:00 Glucotrol Xl PO 5 mg DAILY@0800 AKASH Administration Sodium Chloride 1,000 mls @ 75 mls/hr 12/24/18 18:00 01/01/19 08:57 Nacl 0.9% 1000 Ml IV 75 mls/hr DIRECT AKASH Administration Insulin Human Isoph/Insulin Regular 8 unit 01/01/19 17:00 01/01/19 18:21 Humulin 70/30 SUB-Q Not Given BIDDIAB [facility] Insulin Human Lispro 0 unit 12/27/18 18:00 01/01/19 18:21 Humalog SUB-Q Not Given Q6HR [facility] Protocol Lacosamide 100 mg 12/29/18 14:00 01/01/19 13:00 Vimpat PO 100 mg Q12H AKASH Administration Lansoprazole 30 mg 12/25/18 10:00 01/01/19 11:11 Prevacid Solutab FEEDTUBE 30 mg BID AKASH Administration Levetiracetam 1,000 mg 12/31/18 10:00 01/01/19 11:11 Keppra PO 1,000 mg BID AKASH Administration Levothyroxine Sodium 100 mcg 12/25/18 06:00 01/01/19 05:40 Synthroid PO 100 mcg DAILY@0600 AKASH Administration Lorazepam 1 mg 12/24/18 17:29 12/27/18 17:53 Ativan IV 1 mg Q4H PRN Administration Agitation Multivitamins 5 ml 12/25/18 10:00 01/01/19 11:12 Centrum Liq PO 5 ml QDAY AKASH Administration Ondansetron HCl 4 mg 12/23/18 13:27 12/24/18 09:28 Zofran IV 4 mg Q8H PRN Administration Nausea And Vomiting Potassium Phos/Sodium Phos 1 each 12/30/18 22:00 01/01/19 13:00 Phos-Nak PO 1 each Q8HR AKASH Administration Scopolamine 1 each 12/30/18 06:00 12/30/18 05:00 Transderm-Scop TD 1 each Q3D AKASH Administration Simple Syrup 15 ml 12/27/18 15:18 Simple Syrup FEEDTUBE PRN PRN Hypoglycemia Simple Syrup 30 ml 12/27/18 15:18 Simple Syrup FEEDTUBE PRN PRN Hypoglycemia Sodium Bicarbonate 325 mg 12/27/18 15:18 Sodium Bicarbonate FEEDTUBE PRN PRN For Clogged Feeding Tube Sodium Chloride 10 ml 12/23/18 22:00 01/01/19 11:15 Sodium Chloride Flush Syringe 10 Ml IV 10 ml BID AKASH Administration Sodium Chloride 10 ml 12/23/18 13:27 Sodium Chloride Flush Syringe 10 Ml IV PRN PRN LINE FLUSH Nutrition/Malnutrition Assess - Dietary Evaluation Nutrition/Malnutrition Findings: Nutrition Notes Start: 12/24/18 10:03 Freq: Status: Active Protocol: Document 01/01/19 09:35 KS (Rec: 01/01/19 11:06 KS [id number]) Co-Sign 01/01/19 09:35 LM Nutrition Notes Initial or Follow up Reassessment Current Diagnosis COPD,Diabetes,Hypertension Other Pertinent Diagnosis CVA, Debility, Seizures, Encephalopathy, SIRS Current Diet Glucerna 1.2 at 55ml/hr Labs/Tests CR - 0.4 Glu - 222 POC Glu - 217 Pertinent Medications Humalog Height 5 ft 6 in Weight 77.6 kg [place] Body Weight (kg) 59.09 BMI 27.6 Weight change and time frame Noted wt change. Likely due to malfunctioning bedscale. Subjective/Other Information Observed Glucerna running at 55ml/hr. Pt tolerating TF. Percent of energy/protein needs met: 101%/85% Burn Absent Trauma Absent Minimum of two criteria Yes Energy Intake (severe) < or equal to 50% Estimated Energy Requirement > or equal to 5 days Fluid Accumulation Moderate to Severe (severe) Reduced Char Puller Strength Measurably Reduced (severe) #1 Nutrition Diagnosis Malnutrition Diagnosis Progress(for reassessment Continues documentation) Is patient on ventilator? No Is Patient Ambulatory and/or Out of Bed No REE-([facility]-confined to bed) 0243.652 Calculation Used for Recommendations [facility] Additional Notes Protein Needs: 93-116g (1.2-1. 5g/kg) Fluid Needs: 1 ml/kcal Nutrition Intervention Change Diet Order: Continue TF Nutrition Support: Glucerna 1.2 at 55 ml/hr Water flush of 100 mls q 4 hrs Kcal 1,584 Protein (gm) 79 Fluid (mL) 1,063 Goal #1 TF tolerance Goal #2 Meet at least 75% of calorie and protein needs via TF Anticipated Discharge Needs: Unable to determine at this time Follow-Up By: 01/08/19 Additional Comments Follow for TF
[2019-01-01] MEDS: ENOXAPARIN 40 MG/0.4 ML INJ SUB-Q SCH (22:50)
[2019-01-01] MEDS: diphenhydrAMINE 25 MG CAP PO PRN (23:08)
[2019-01-02] MEDS: INSULIN LISPRO 100 UNIT/ML SUB-Q SCH ×4 (01:39→18:22)
[2019-01-02] MEDS: LACOSAMIDE 100 MG TAB PO SCH ×2 (01:39→16:21)
[2019-01-02] MEDS: PHOS-NAK POWDER PACKET PO SCH ×3 (06:23→22:07)
[2019-01-02] MEDS: LEVOTHYROXINE 100 MCG TAB PO SCH (06:23)
[2019-01-02] MEDS: SCOPOLAMINE TRANSDERMAL PATCH 72 HR TD SCH (06:32)
[2019-01-02] MEDS: levETIRAcetam 500 MG/5 ML ORAL LIQD PO SCH ×2 (10:59→22:07)
[2019-01-02] MEDS: FERROUS SULFATE 308 MG (62mg Elemental Iron) / 7 ML ELIXIR PO SCH (11:00)
[2019-01-02] MEDS: MULTIVITAMINS 5 ML ORAL LIQUID PO SCH (11:00)
[2019-01-02] MEDS: INSULIN NPH/REGULAR 70/30 INJ SUB-Q SCH ×2 (11:00→18:22)
[2019-01-02] MEDS: DULoxetine 30 MG CAP PO SCH ×2 (11:01→22:07)
[2019-01-02] MEDS: glipiZIDE XL 5 MG TAB PO SCH (11:01)
[2019-01-02] MEDS: amLODIPine 5 MG TAB PO SCH (11:01)
[2019-01-02] MEDS: LANSOPRAZOLE 30 MG SOLUTAB FEEDTUBE SCH ×2 (11:01→22:07)
--- NOTE | 2019-01-02 12:02 | Progress Note ---
Assessment and Plan Assessment and plan: --Dysphagia/abnormal swallow eval; Continue Dobbhoff feedings, follow re-evaluation by speech Swallow Evaluation abnormal patient may need PEG placement Discussed with GI possible PEG placement on 01/04/2019 --Acute CVA; left weakness Aspirin and statin, PT,OT rehabilitation. Possible placement --Metabolic Encephalopathy Etiology secondary to CVA and seizure disorder. Continue to treat underlying causes. --Seizure disorder; She did not have any episodes of seizures today, mild facial twitches , on antiepileptic medications Christy and [facility] Neurology following , continue seizure precautions --Gen.Debility PT/OT, supportive care --Severe hypokalemia; Resolved --Hypomagnesemia: Hypeo phosphatemia Resolved, Closely monitor electrolytes --Diabetes mellitus Continue Accu-Cheks and sliding scale insulin. --HTN (hypertension) Well control with medical management. --Hypothyroidism Continue Synthroid daily --DVT prophylaxis; Lovenox Monitor closely and adjust management as needed Neurology evaluation and recommendations noted and appreciated Discharge planning, case management when stable Plan of care is reviewed with the patient and her nurse History Interval history: Patient seen and examined medical records reviewed Is alert and awake and responding appropriately no new episodes of seizures, failed swallow evaluation GI consult for PEG placement Vital signs noted Hospitalist Physical - Constitutional Vitals: Temp Pulse Resp BP Pulse Ox 98.3 F 88 18 155/69 98 01/02/19 07:32 01/02/19 11:01 01/02/19 07:32 01/02/19 11:01 01/02/19 04:56 General appearance: Present: no acute distress, well-nourished, other (responds appropriately) - EENT Eyes: Present: PERRL, EOM intact - Neck Neck: Present: supple, normal ROM - Respiratory Respiratory effort: normal Respiratory: bilateral: diminished, negative: rales, rhonchi, wheezing - Cardiovascular Rhythm: regular Heart Sounds: Present: S1 & S2 - Extremities Extremities: no ischemia, No edema - Abdominal General gastrointestinal: soft, non-tender, non-distended, normal bowel sounds - Integumentary Integumentary: Present: clear, warm - Psychiatric Psychiatric: appropriate mood/affect, cooperative - Neurologic Neurologic: other (Lt.sided hemiparesis, dysarthria ) Results - Labs CBC & Chem 7: 12/29/18 09:50 01/01/19 05:08 Labs: Laboratory Last Values WBC 10.9 K/mm3 (4.5-11.0) 12/29/18 09:50 RBC 3.89 M/mm3 (3.65-5.03) 12/29/18 09:50 Hgb 11.3 gm/dl (10.1-14.3) 12/29/18 09:50 Hct 34.5 % (30.3-42.9) 12/29/18 09:50 MCV 89 fl (79-97) 12/29/18 09:50 MCH 29 pg (28-32) 12/29/18 09:50 MCHC 33 % (30-34) 12/29/18 09:50 RDW 17.2 % (13.2-15.2) H 12/29/18 09:50 Plt Count 157 K/mm3 (140-440) 12/29/18 09:50 Lymph % (Auto) 11.8 % (13.4-35.0) L 12/29/18 09:50 [place] % (Auto) 5.9 % (0.0-7.3) 12/29/18 09:50 Eos % (Auto) 1.4 % (0.0-4.3) 12/29/18 09:50 Baso % (Auto) 0.2 % (0.0-1.8) 12/29/18 09:50 Lymph # 1.3 K/mm3 (1.2-5.4) 12/29/18 09:50 [place] # 0.6 K/mm3 (0.0-0.8) 12/29/18 09:50 Eos # 0.2 K/mm3 (0.0-0.4) 12/29/18 09:50 Baso # 0.0 K/mm3 (0.0-0.1) 12/29/18 09:50 Add Manual Diff Complete 12/29/18 09:50 Total Counted 100 12/29/18 09:50 Seg Neutrophils % 80.7 % (40.0-70.0) H 12/29/18 09:50 Seg Neuts % (Manual) 80.0 % (40.0-70.0) H 12/29/18 09:50 0 % 12/29/18 09:50 11.0 % (13.4-35.0) L 12/29/18 09:50 Reactive Lymphs % (Man) 0 % 12/29/18 09:50 4.0 % (0.0-7.3) 12/29/18 09:50 4.0 % (0.0-4.3) 12/29/18 09:50 1.0 % (0.0-1.8) 12/29/18 09:50 0 % 12/29/18 09:50 0 % 12/29/18 09:50 0 % 12/29/18 09:50 0 % 12/29/18 09:50 Nucleated RBC % Not Reportable 12/29/18 09:50 Seg Neutrophils # 8.8 K/mm3 (1.8-7.7) H 12/29/18 09:50 Seg Neutrophils # Man 8.7 K/mm3 (1.8-7.7) H 12/29/18 09:50 Band Neutrophils # 0.0 K/mm3 12/29/18 09:50 1.2 K/mm3 (1.2-5.4) 12/29/18 09:50 Abs React Lymphs (Man) 0.0 K/mm3 12/29/18 09:50 0.4 K/mm3 (0.0-0.8) 12/29/18 09:50 0.4 K/mm3 (0.0-0.4) 12/29/18 09:50 0.1 K/mm3 (0.0-0.1) 12/29/18 09:50 0.0 K/mm3 12/29/18 09:50 0.0 K/mm3 12/29/18 09:50 0.0 K/mm3 12/29/18 09:50 Blast Cells # 0.0 K/mm3 12/29/18 09:50 WBC Morphology Not Reportable 12/29/18 09:50 Hypersegmented Neuts Not Reportable 12/29/18 09:50 Hyposegmented Neuts Not Reportable 12/29/18 09:50 Hypogranular Neuts Not Reportable 12/29/18 09:50 Not Reportable 12/29/18 09:50 Not Reportable 12/29/18 09:50 Not Reportable 12/29/18 09:50 Not Reportable 12/29/18 09:50 Not Reportable 12/29/18 09:50 Not Reportable 12/29/18 09:50 Consistent w auto 12/29/18 09:50 Not Reportable 12/29/18 09:50 Plt Clumps, EDTA Not Reportable 12/29/18 09:50 Not Reportable 12/29/18 09:50 Not Reportable 12/29/18 09:50 Not Reportable 12/29/18 09:50 Plt Morphology Comment Not Reportable 12/29/18 09:50 RBC Morphology Not Reportable 12/29/18 09:50 Dimorphic RBCs Not Reportable 12/29/18 09:50 Not Reportable 12/29/18 09:50 Not Reportable 12/29/18 09:50 Few 12/29/18 09:50 Few 12/29/18 09:50 Not Reportable 12/29/18 09:50 Not Reportable 12/29/18 09:50 Not Reportable 12/29/18 09:50 Not Reportable 12/29/18 09:50 Not Reportable 12/29/18 09:50 Not Reportable 12/29/18 09:50 Not Reportable 12/29/18 09:50 Few 12/29/18 09:50 Not Reportable 12/29/18 09:50 Not Reportable 12/29/18 09:50 Not Reportable 12/29/18 09:50 Not Reportable 12/29/18 09:50 Not Reportable 12/29/18 09:50 Not Reportable 12/29/18 09:50 Rare 12/29/18 09:50 Acanthocytes (Spur) Not Reportable 12/29/18 09:50 Rouleaux Not Reportable 12/29/18 09:50 Not Reportable 12/29/18 09:50 Not Reportable 12/29/18 09:50 Not Reportable 12/29/18 09:50 Not Reportable 12/29/18 09:50 Hem Pathologist Commnt No 12/29/18 09:50 VBG pH 7.333 (7.320-7.420) 12/23/18 11:13 Sodium 137 mmol/L (137-145) 01/01/19 05:08 Potassium 4.5 mmol/L (3.6-5.0) 01/01/19 05:08 Chloride 98.0 mmol/L (98-107) 01/01/19 05:08 Carbon Dioxide 29 mmol/L (22-30) 01/01/19 05:08 15 mmol/L 01/01/19 05:08 BUN 8 mg/dL (7-17) 01/01/19 05:08 0.4 mg/dL (0.7-1.2) L 01/01/19 05:08 Estimated GFR > 60 ml/min 01/01/19 05:08 20 % 01/01/19 05:08 Glucose 222 mg/dL (65-100) H 01/01/19 05:08 POC Glucose 207 (70-105) H 01/02/19 07:03 5.9 % (4-6) 01/01/19 05:08 Lactic Acid 1.10 mmol/L (0.7-2.0) 12/23/18 20:07 Calcium 8.6 mg/dL (8.4-10.2) 01/01/19 05:08 Phosphorus 2.10 mg/dL (2.5-4.5) L 12/31/18 03:49 Magnesium 1.90 mg/dL (1.7-2.3) 01/01/19 05:08 0.90 mg/dL (0.1-1.2) 12/26/18 21:39 AST 13 units/L (5-40) 12/26/18 21:39 ALT 6 units/L (7-56) L 12/26/18 21:39 70 units/L (35-129) 12/26/18 21:39 65.0 umol/L (25-60) H 12/23/18 10:55 152 units/L (30-135) H 12/23/18 10:55 6.8 g/dL (6.3-8.2) 12/26/18 21:39 3.4 g/dL (3.9-5) L 12/26/18 21:39 1.0 % 12/26/18 21:39 Triglycerides 110 mg/dL (2-149) 01/01/19 17:12 Cholesterol 157 mg/dL (50-199) 01/01/19 17:12 112 mg/dL (50-130) 01/01/19 17:12 35 mg/dL (40-59) L 01/01/19 17:12 4.48 % 01/01/19 17:12 TSH 0.007 mlU/mL (0.270-4.200) L 12/23/18 10:55 Free T4 1.89 ng/dL (0.76-1.46) H 12/23/18 10:55 Yellow (Yellow) 12/23/18 10:30 Slightly-cloudy (Clear) 12/23/18 10:30 6.0 (5.0-7.0) 12/23/18 10:30 Ur Specific Orange 1.015 (1.003-1.030) 12/23/18 10:30 >500 mg/dL (Negative) 12/23/18 10:30 50 mg/dL (Negative) 12/23/18 10:30 Tr mg/dL (Negative) 12/23/18 10:30 Neg (Negative) 12/23/18 10:30 Neg (Negative) 12/23/18 10:30 Neg (Negative) 12/23/18 10:30 < 2.0 mg/dL (<2.0) 12/23/18 10:30 Ur Leukocyte Esterase Neg (Negative) 12/23/18 10:30 3.0 /HPF (0.0-6.0) 12/23/18 10:30 6.0 /HPF (0.0-6.0) 12/23/18 10:30 U Epithel Cells (Auto) 1.0 /HPF (0-13.0) 12/23/18 10:30 1+ /HPF (Negative) 12/23/18 10:30 Few /HPF 12/23/18 10:30 Presumptive negative 12/23/18 10:30 Presumptive negative 12/23/18 10:30 Ur Barbiturates Screen Presumptive negative 12/23/18 10:30 Ur Phencyclidine Scrn Presumptive negative 12/23/18 10:30 Ur Amphetamines Screen Presumptive negative 12/23/18 10:30 U Benzodiazepines Scrn Presumptive positive 12/23/18 10:30 Presumptive negative 12/23/18 10:30 U Marijuana (THC) Screen Presumptive negative 12/23/18 10:30 Disclamer 12/23/18 10:30 Plasma/Serum Alcohol < 0.01 % (0-0.07) 12/23/18 10:55 Active Medications - Current Medications Current Medications: Generic Name Dose Route Start Last Admin Trade Name Freq PRN Reason Stop Dose Admin Acetaminophen 650 mg 12/25/18 04:00 01/01/19 23:07 Tylenol PO 650 mg Q4H PRN Administration Pain MILD(1-3)/Fever >100.5/FLORES Acetaminophen 650 mg 12/25/18 13:50 12/25/18 13:58 Tylenol DC 650 mg Q4H PRN Administration Pain, Mild (1-3) Amlodipine Besylate 5 mg 12/24/18 10:00 01/02/19 11:01 Norvasc PO 5 mg DAILY AKASH Administration Lipase/Protease/Amylase 1 each 12/27/18 15:[address] 10,500 Unit FEEDTUBE PRN PRN For Clogged Feeding Tube Dextrose 50 ml 12/23/18 13:42 D50w (25gm) Syringe IV PRN PRN Hypoglycemia Diphenhydramine HCl 25 mg 01/01/19 16:19 01/01/19 23:08 Benadryl PO 25 mg QHS PRN Administration Itching Duloxetine HCl 30 mg 12/23/18 22:00 01/02/19 11:01 Cymbalta PO 30 mg BID AKASH Administration Enoxaparin Sodium 40 mg 12/23/18 22:00 01/01/19 22:50 Lovenox SUB-Q 40 mg QDAY@2200 AKASH Administration Ferrous Sulfate 308 mg 12/25/18 10:00 01/02/19 11:00 Ferrous Sulfate PO 308 mg QDAY AKASH Administration Glipizide 5 mg 01/01/19 08:00 01/02/19 11:01 Glucotrol Xl PO 5 mg DAILY@0800 AKASH Administration Sodium Chloride 1,000 mls @ 75 mls/hr 12/24/18 18:00 01/01/19 22:48 Nacl 0.9% 1000 Ml IV 75 mls/hr DIRECT AKASH Administration Insulin Human Isoph/Insulin Regular 8 unit 01/01/19 17:00 01/02/19 11:00 Humulin 70/30 SUB-Q 8 unit BIDDIAB AKASH Administration Insulin Human Lispro 0 unit 12/27/18 18:00 01/02/19 06:58 Humalog SUB-Q 3 unit Q6HR AKASH Administration Protocol Lacosamide 100 mg 12/29/18 14:00 01/02/19 01:39 Vimpat PO 100 mg Q12H AKASH Administration Lansoprazole 30 mg 12/25/18 10:00 01/02/19 11:01 Prevacid Solutab FEEDTUBE 30 mg BID AKASH Administration Levetiracetam 1,000 mg 12/31/18 10:00 01/02/19 10:59 Keppra PO 1,000 mg BID AKASH Administration Levothyroxine Sodium 100 mcg 12/25/18 06:00 01/02/19 06:23 Synthroid PO 100 mcg DAILY@0600 AKASH Administration Lorazepam 1 mg 12/24/18 17:29 12/27/18 17:53 Ativan IV 1 mg Q4H PRN Administration Agitation Multivitamins 5 ml 12/25/18 10:00 01/02/19 11:00 Centrum Liq PO 5 ml QDAY AKASH Administration Ondansetron HCl 4 mg 12/23/18 13:27 12/24/18 09:28 Zofran IV 4 mg Q8H PRN Administration Nausea And Vomiting Potassium Phos/Sodium Phos 1 each 12/30/18 22:00 01/02/19 06:23 Phos-Nak PO 1 each Q8HR AKASH Administration Scopolamine 1 each 12/30/18 06:00 01/02/19 06:32 Transderm-Scop TD 1 each Q3D AKASH Administration Simple Syrup 15 ml 12/27/18 15:18 Simple Syrup FEEDTUBE PRN PRN Hypoglycemia Simple Syrup 30 ml 12/27/18 15:18 Simple Syrup FEEDTUBE PRN PRN Hypoglycemia Sodium Bicarbonate 325 mg 12/27/18 15:18 Sodium Bicarbonate FEEDTUBE PRN PRN For Clogged Feeding Tube Sodium Chloride 10 ml 12/23/18 22:00 01/02/19 11:02 Sodium Chloride Flush Syringe 10 Ml IV 10 ml BID AKASH Administration Sodium Chloride 10 ml 12/23/18 13:27 Sodium Chloride Flush Syringe 10 Ml IV PRN PRN LINE FLUSH Nutrition/Malnutrition Assess - Dietary Evaluation Nutrition/Malnutrition Findings: Nutrition Notes Start: 12/24/18 10:03 Freq: Status: Active Protocol: Document 01/01/19 09:35 KS (Rec: 01/01/19 11:06 KS [id number]) Co-Sign 01/01/19 09:35 LM Nutrition Notes Initial or Follow up Reassessment Current Diagnosis COPD,Diabetes,Hypertension Other Pertinent Diagnosis CVA, Debility, Seizures, Encephalopathy, SIRS Current Diet Glucerna 1.2 at 55ml/hr Labs/Tests CR - 0.4 Glu - 222 POC Glu - 217 Pertinent Medications Humalog Height 5 ft 6 in Weight 77.6 kg [place] Body Weight (kg) 59.09 BMI 27.6 Weight change and time frame Noted wt change. Likely due to malfunctioning bedscale. Subjective/Other Information Observed Glucerna running at 55ml/hr. Pt tolerating TF. Percent of energy/protein needs met: 101%/85% Burn Absent Trauma Absent Minimum of two criteria Yes Energy Intake (severe) < or equal to 50% Estimated Energy Requirement > or equal to 5 days Fluid Accumulation Moderate to Severe (severe) Reduced Evp [employer] Strength Measurably Reduced (severe) #1 Nutrition Diagnosis Malnutrition Diagnosis Progress(for reassessment Continues documentation) Is patient on ventilator? No Is Patient Ambulatory and/or Out of Bed No REE-([facility]-confined to bed) 8439.847 Calculation Used for Recommendations [facility] Additional Notes Protein Needs: 93-116g (1.2-1. 5g/kg) Fluid Needs: 1 ml/kcal Nutrition Intervention Change Diet Order: Continue TF Nutrition Support: Glucerna 1.2 at 55 ml/hr Water flush of 100 mls q 4 hrs Kcal 1,584 Protein (gm) 79 Fluid (mL) 1,063 Goal #1 TF tolerance Goal #2 Meet at least 75% of calorie and protein needs via TF Anticipated Discharge Needs: Unable to determine at this time Follow-Up By: 01/08/19 Additional Comments Follow for TF
--- NOTE | 2019-01-02 17:01 | XRay Report ---
ABDOMEN 1 VIEW(S) 4:45 PM INDICATION / CLINICAL INFORMATION: Dobbhoff placement. COMPARISON: Yesterday. FINDINGS: TUBES / LINES: The tip of the feeding tube overlies the distal gastric body along the greater curvatu re. BOWEL GAS PATTERN: No significant abnormality. FREE AIR / EXTRALUMINAL GAS: None seen. ADDITIONAL FINDINGS: There are extensive vascular calcifications. IMPRESSION: Feeding tube tip overlies the distal gastric body. Signer Name: Jutsin Coats MD Signed: 01/02/2019 4:56 PM Workstation Name: [id number]
--- NOTE | 2019-01-02 19:05 | Gastroenterology Consultation ---
History of Present Illness - Reason for Consult Consult date: 01/02/19 dysphagia Requesting physician: NEDRA SALGUERO - History of Present Illness This is a 73 yo female admitted for left side weakness and found to have acute ischemic stroke and hospital stay complicated with seizure, metabolic encephalopathy, and electrolyte derangement. GI consulted for dysphagia and PEG placement. She was evaluated by speech earlier this week and noted to be high risk for aspiration. She has had dobhoff for tube feeds and tolerating it well. Today, she is alert and oriented to self and place. Medication list reviewed. Past History Past Medical History: arthritis, diabetes, GERD, hypertension, hypothyroidism, other (Asthma) Past Surgical History: No surgical history, Other (reviewed) Social history: single, lives with family. denies: smoking, alcohol abuse, prescription drug abuse Family history: hypertension Medications and Allergies Allergies Allergy/AdvReac Type Severity Reaction Status Date / Time No Known Allergies Allergy Unverified 02/16/13 00:01 Home Medications Medication Instructions Recorded Confirmed Last Taken Type Insulin Detemir [Levemir Flexpen] 5 unit SC HS 02/16/13 12/23/18 12/22/18 History Insulin Aspart [NovoLOG 100 100 unit SQ AC PRN #1 bottle 03/15/13 12/23/18 12/22/18 Rx UNITS/ML VIAL] Multivitamin Tab [Multiple Vitamin 1 each PO QDAY #30 tablet 03/15/13 12/23/18 12/22/18 Rx TAB (Theragran)] glipiZIDE [Glipizide Xl] 2.5 mg PO QAM #30 tab.er.24 03/15/13 12/23/18 12/22/18 Rx glipiZIDE [Glipizide Xl] 5 mg PO QAM #30 tab.er.24 03/15/13 12/23/18 12/22/18 Rx DULoxetine [Cymbalta] 30 mg PO BID 12/23/18 12/23/18 12/22/18 History Ferrous Sulfate [Iron 325 MG] 325 mg PO QDAY 12/23/18 12/23/18 12/22/18 History Levothyroxine [Synthroid] 125 mcg PO QAM 12/23/18 12/23/18 12/22/18 History Pantoprazole [Protonix] 40 mg PO BID 12/23/18 12/23/1819 History amLODIPine [Norvasc] 5 mg PO DAILY 12/23/18 12/23/18 12/22/18 History Active Meds: Active Medications Acetaminophen (Tylenol) 650 mg PO Q4H PRN PRN Reason: Pain MILD(1-3)/Fever >100.5/FLORES Last Admin: 01/01/19 23:07 Dose: 650 mg Documented by: Acetaminophen (Tylenol) 650 mg MD Q4H PRN PRN Reason: Pain, Mild (1-3) Last Admin: 12/25/18 13:58 Dose: 650 mg Documented by: Amlodipine Besylate (Norvasc) 5 mg PO DAILY [facility] Last Admin: 01/02/19 11:01 Dose: 5 mg Documented by: Lipase/Protease/Amylase (Sheldon Marques 10,500 Unit) 1 each FEEDTUBE PRN PRN PRN Reason: For Clogged Feeding Tube Dextrose (D50w (25gm) Syringe) 50 ml IV PRN PRN PRN Reason: Hypoglycemia Diphenhydramine HCl (Benadryl) 25 mg PO QHS PRN PRN Reason: Itching Last Admin: 01/01/19 23:08 Dose: 25 mg Documented by: Duloxetine HCl (Cymbalta) 30 mg PO BID [facility] Last Admin: 01/02/19 11:01 Dose: 30 mg Documented by: Enoxaparin Sodium (Lovenox) 40 mg SUB-Q QDAY@2200 [facility] Last Admin: 01/01/19 22:50 Dose: 40 mg Documented by: Ferrous Sulfate (Ferrous Sulfate) 308 mg PO QDAY [facility] Last Admin: 01/02/19 11:00 Dose: 308 mg Documented by: Glipizide (Glucotrol Xl) 5 mg PO DAILY@0800 [facility] Last Admin: 01/02/19 11:01 Dose: 5 mg Documented by: Sodium Chloride (Nacl 0.9% 1000 Ml) 1,000 mls @ 75 mls/hr IV DIRECT [facility] Last Admin: 01/01/19 22:48 Dose: 75 mls/hr Documented by: Insulin Human Isoph/Insulin Regular (Humulin 70/30) 8 unit SUB-Q BIDDIAB [facility] Last Admin: 01/02/19 18:22 Dose: Not Given Documented by: Insulin Human Lispro (Humalog) 0 unit SUB-Q Q6HR [facility]; Protocol Last Admin: 01/02/19 18:22 Dose: Not Given Documented by: Lacosamide (Vimpat) 100 mg PO Q12H [facility] Last Admin: 01/02/19 16:21 Dose: 100 mg Documented by: Lansoprazole (Prevacid Solutab) 30 mg FEEDTUBE BID [facility] Last Admin: 01/02/19 11:01 Dose: 30 mg Documented by: Levetiracetam (Keppra) 1,000 mg PO BID [facility] Last Admin: 01/02/19 10:59 Dose: 1,000 mg Documented by: Levothyroxine Sodium (Synthroid) 100 mcg PO DAILY@0600 [facility] Last Admin: 01/02/19 06:23 Dose: 100 mcg Documented by: Lorazepam (Ativan) 1 mg IV Q4H PRN PRN Reason: Agitation Last Admin: 12/27/18 17:53 Dose: 1 mg Documented by: Multivitamins (Centrum Liq) 5 ml PO QDAY [facility] Last Admin: 01/02/19 11:00 Dose: 5 ml Documented by: Ondansetron HCl (Zofran) 4 mg IV Q8H PRN PRN Reason: Nausea And Vomiting Last Admin: 12/24/18 09:28 Dose: 4 mg Documented by: Potassium Phos/Sodium Phos (Phos-Nak) 1 each PO Q8HR [facility] Last Admin: 01/02/19 16:21 Dose: 1 each Documented by: Scopolamine (Transderm-Scop) 1 each TD Q3D [facility] Last Admin: 01/02/19 06:32 Dose: 1 each Documented by: Simple Syrup (Simple Syrup) 15 ml FEEDTUBE PRN PRN PRN Reason: Hypoglycemia Simple Syrup (Simple Syrup) 30 ml FEEDTUBE PRN PRN PRN Reason: Hypoglycemia Sodium Bicarbonate (Sodium Bicarbonate) 325 mg FEEDTUBE PRN PRN PRN Reason: For Clogged Feeding Tube Sodium Chloride (Sodium Chloride Flush Syringe 10 Ml) 10 ml IV BID [facility] Last Admin: 01/02/19 11:02 Dose: 10 ml Documented by: Sodium Chloride (Sodium Chloride Flush Syringe 10 Ml) 10 ml IV PRN PRN PRN Reason: LINE FLUSH Review of Systems - Review of Systems ROS unobtainable: due to mental status Exam - Constitutional Vital Signs: Temp Pulse Resp BP Pulse Ox 98.0 F 60 18 154/61 95 01/02/19 11:56 01/02/19 11:56 01/02/19 11:56 01/02/19 11:56 01/02/19 11:56 General appearance: no acute distress - EENT ENT: hearing intact - Neck Neck: supple - Respiratory Respiratory effort: normal - Cardiovascular Rhythm: regular Heart Sounds: Present: S1 & S2 - Gastrointestinal General gastrointestinal: Present: soft, non-tender, non-distended - Integumentary Integumentary: Present: clear, warm - Neurologic Neurological: oriented to person - Labs CBC & Chem 7: 12/29/18 09:50 01/01/19 05:08 Lab Results: Laboratory Results - last 24 hr 01/01/19 01/02/19 01/02/19 22:57 07:03 12:05 POC Glucose 173 H 207 H 160 H 01/02/19 16:57 POC Glucose 132 H Assessment and Plan This is a 73 yo female admitted for left side weakness and found to have acute ischemic stroke and hospital stay complicated with seizure, metabolic encephalopathy, and electrolyte derangement. GI consulted for dysphagia and PEG placement. # CVA # seizure # Metabolic encephalopathy. # dysphagia: multifactorial with all of above. - mental status slightly improving per primary team and nursing staff. - will tentatively plan for EGD with PEG placement on Friday01/04/2019. Will discuss with family. Will need to hold lovenox dose the night prior. - would benefit from re-evaluation by speech prior to PEG placement given some improvement in mental status. also would appreciate input from neurology.
[2019-01-02] MEDS: diphenhydrAMINE 25 MG CAP PO PRN (22:07)
[2019-01-02] MEDS: ACETAMINOPHEN 325 MG/10.15 ML ORAL LIQD UNIT DOSE PO PRN (22:07)
[2019-01-02] MEDS: ENOXAPARIN 40 MG/0.4 ML INJ SUB-Q SCH (22:08)
[2019-01-03] MEDS: INSULIN LISPRO 100 UNIT/ML SUB-Q SCH ×3 (00:23→16:46)
[2019-01-03] MEDS: LACOSAMIDE 100 MG TAB PO SCH ×2 (02:34→17:44)
[2019-01-03] MEDS: SODIUM CHLORIDE 0.9% 1000 ML 1,000 ML IV SCH ×2 (02:46→21:31)
[2019-01-03] MEDS: LEVOTHYROXINE 100 MCG TAB PO SCH (05:52)
[2019-01-03] MEDS: PHOS-NAK POWDER PACKET PO SCH ×3 (05:52→21:30)
[2019-01-03] MEDS: ACETAMINOPHEN 325 MG/10.15 ML ORAL LIQD UNIT DOSE PO PRN (05:53)
[2019-01-03] MEDS: MULTIVITAMINS 5 ML ORAL LIQUID PO SCH (09:21)
[2019-01-03] MEDS: levETIRAcetam 500 MG/5 ML ORAL LIQD PO SCH ×2 (09:21→21:30)
[2019-01-03] MEDS: FERROUS SULFATE 308 MG (62mg Elemental Iron) / 7 ML ELIXIR PO SCH (09:21)
[2019-01-03] MEDS: INSULIN NPH/REGULAR 70/30 INJ SUB-Q SCH ×2 (09:22→17:44)
[2019-01-03] MEDS: LANSOPRAZOLE 30 MG SOLUTAB FEEDTUBE SCH ×2 (09:22→21:30)
[2019-01-03] MEDS: DULoxetine 30 MG CAP PO SCH ×2 (09:22→21:30)
[2019-01-03] MEDS: glipiZIDE XL 5 MG TAB PO SCH (09:22)
[2019-01-03] MEDS: amLODIPine 5 MG TAB PO SCH (09:22)
--- NOTE | 2019-01-03 09:55 | Progress Note ---
Assessment and Plan Assessment and plan: --Dysphagia/abnormal swallow eval; Continue Dobbhoff feedings, follow re-evaluation by speech Swallow Evaluation abnormal patient may need PEG placement Discussed with GI possible PEG placement on 01/04/2019 --Acute CVA; left weakness Aspirin and statin, PT,OT rehabilitation. Possible placement --Metabolic Encephalopathy Etiology secondary to CVA and seizure disorder. Continue to treat underlying causes. --Seizure disorder; She did not have any new episodes of seizures , mild facial twitches , on antiepileptic medications [facility] following , continue seizure precautions --Gen.Debility PT/OT, supportive care --Severe hypokalemia; Resolved --Hypomagnesemia: Hypeo phosphatemia Resolved, Closely monitor electrolytes --Diabetes mellitus Continue Accu-Cheks and sliding scale insulin. --HTN (hypertension) Well control with medical management. --Hypothyroidism Continue Synthroid daily --DVT prophylaxis; Lovenox Monitor closely and adjust management as needed Neurology evaluation and recommendations noted and appreciated Discharge planning, case management when stable Plan of care is reviewed with the patient and her nurse History Interval history: Patient seen and examined medical records reviewed Patient is dysphagic on tube feeding Failed swallowing evaluation Scheduled for PEG placement tomorrow The patient is alert and awake Vital signs reviewed Hospitalist Physical - Constitutional Vitals: Temp Pulse Resp BP Pulse Ox 98.2 F 92 H 18 123/55 96 01/03/19 07:33 01/03/19 03:26 01/03/19 07:33 01/03/19 09:22 01/03/19 03:26 General appearance: Present: no acute distress, well-nourished, other (responds appropriately, confused at times) - EENT Eyes: Present: PERRL, EOM intact - Neck Neck: Present: supple, normal ROM - Respiratory Respiratory effort: normal Respiratory: bilateral: diminished, negative: rales, rhonchi, wheezing - Cardiovascular Rhythm: regular Heart Sounds: Present: S1 & S2 - Extremities Extremities: No edema, abnormal (left-sided weakness) - Abdominal General gastrointestinal: soft, non-tender, non-distended, normal bowel sounds - Integumentary Integumentary: Present: clear, warm - Psychiatric Psychiatric: appropriate mood/affect, cooperative - Neurologic Neurologic: other (left-sided weakness, slow speech) Results - Labs CBC & Chem 7: 12/29/18 09:50 01/01/19 05:08 Labs: Laboratory Last Values WBC 10.9 K/mm3 (4.5-11.0) 12/29/18 09:50 RBC 3.89 M/mm3 (3.65-5.03) 12/29/18 09:50 Hgb 11.3 gm/dl (10.1-14.3) 12/29/18 09:50 Hct 34.5 % (30.3-42.9) 12/29/18 09:50 MCV 89 fl (79-97) 12/29/18 09:50 MCH 29 pg (28-32) 12/29/18 09:50 MCHC 33 % (30-34) 12/29/18 09:50 RDW 17.2 % (13.2-15.2) H 12/29/18 09:50 Plt Count 157 K/mm3 (140-440) 12/29/18 09:50 Lymph % (Auto) 11.8 % (13.4-35.0) L 12/29/18 09:50 [place] % (Auto) 5.9 % (0.0-7.3) 12/29/18 09:50 Eos % (Auto) 1.4 % (0.0-4.3) 12/29/18 09:50 Baso % (Auto) 0.2 % (0.0-1.8) 12/29/18 09:50 Lymph # 1.3 K/mm3 (1.2-5.4) 12/29/18 09:50 [place] # 0.6 K/mm3 (0.0-0.8) 12/29/18 09:50 Eos # 0.2 K/mm3 (0.0-0.4) 12/29/18 09:50 Baso # 0.0 K/mm3 (0.0-0.1) 12/29/18 09:50 Add Manual Diff Complete 12/29/18 09:50 Total Counted 100 12/29/18 09:50 Seg Neutrophils % 80.7 % (40.0-70.0) H 12/29/18 09:50 Seg Neuts % (Manual) 80.0 % (40.0-70.0) H 12/29/18 09:50 0 % 12/29/18 09:50 11.0 % (13.4-35.0) L 12/29/18 09:50 Reactive Lymphs % (Man) 0 % 12/29/18 09:50 4.0 % (0.0-7.3) 12/29/18 09:50 4.0 % (0.0-4.3) 12/29/18 09:50 1.0 % (0.0-1.8) 12/29/18 09:50 0 % 12/29/18 09:50 0 % 12/29/18 09:50 0 % 12/29/18 09:50 0 % 12/29/18 09:50 Nucleated RBC % Not Reportable 12/29/18 09:50 Seg Neutrophils # 8.8 K/mm3 (1.8-7.7) H 12/29/18 09:50 Seg Neutrophils # Man 8.7 K/mm3 (1.8-7.7) H 12/29/18 09:50 Band Neutrophils # 0.0 K/mm3 12/29/18 09:50 1.2 K/mm3 (1.2-5.4) 12/29/18 09:50 Abs React Lymphs (Man) 0.0 K/mm3 12/29/18 09:50 0.4 K/mm3 (0.0-0.8) 12/29/18 09:50 0.4 K/mm3 (0.0-0.4) 12/29/18 09:50 0.1 K/mm3 (0.0-0.1) 12/29/18 09:50 0.0 K/mm3 12/29/18 09:50 0.0 K/mm3 12/29/18 09:50 0.0 K/mm3 12/29/18 09:50 Blast Cells # 0.0 K/mm3 12/29/18 09:50 WBC Morphology Not Reportable 12/29/18 09:50 Hypersegmented Neuts Not Reportable 12/29/18 09:50 Hyposegmented Neuts Not Reportable 12/29/18 09:50 Hypogranular Neuts Not Reportable 12/29/18 09:50 Not Reportable 12/29/18 09:50 Not Reportable 12/29/18 09:50 Not Reportable 12/29/18 09:50 Not Reportable 12/29/18 09:50 Not Reportable 12/29/18 09:50 Not Reportable 12/29/18 09:50 Consistent w auto 12/29/18 09:50 Not Reportable 12/29/18 09:50 Plt Clumps, EDTA Not Reportable 12/29/18 09:50 Not Reportable 12/29/18 09:50 Not Reportable 12/29/18 09:50 Not Reportable 12/29/18 09:50 Plt Morphology Comment Not Reportable 12/29/18 09:50 RBC Morphology Not Reportable 12/29/18 09:50 Dimorphic RBCs Not Reportable 12/29/18 09:50 Not Reportable 12/29/18 09:50 Not Reportable 12/29/18 09:50 Few 12/29/18 09:50 Few 12/29/18 09:50 Not Reportable 12/29/18 09:50 Not Reportable 12/29/18 09:50 Not Reportable 12/29/18 09:50 Not Reportable 12/29/18 09:50 Not Reportable 12/29/18 09:50 Not Reportable 12/29/18 09:50 Not Reportable 12/29/18 09:50 Few 12/29/18 09:50 Not Reportable 12/29/18 09:50 Not Reportable 12/29/18 09:50 Not Reportable 12/29/18 09:50 Not Reportable 12/29/18 09:50 Not Reportable 12/29/18 09:50 Not Reportable 12/29/18 09:50 Rare 12/29/18 09:50 Acanthocytes (Spur) Not Reportable 12/29/18 09:50 Rouleaux Not Reportable 12/29/18 09:50 Not Reportable 12/29/18 09:50 Not Reportable 12/29/18 09:50 Not Reportable 12/29/18 09:50 Not Reportable 12/29/18 09:50 Hem Pathologist Commnt No 12/29/18 09:50 VBG pH 7.333 (7.320-7.420) 12/23/18 11:13 Sodium 137 mmol/L (137-145) 01/01/19 05:08 Potassium 4.5 mmol/L (3.6-5.0) 01/01/19 05:08 Chloride 98.0 mmol/L (98-107) 01/01/19 05:08 Carbon Dioxide 29 mmol/L (22-30) 01/01/19 05:08 15 mmol/L 01/01/19 05:08 BUN 8 mg/dL (7-17) 01/01/19 05:08 0.4 mg/dL (0.7-1.2) L 01/01/19 05:08 Estimated GFR > 60 ml/min 01/01/19 05:08 20 % 01/01/19 05:08 Glucose 222 mg/dL (65-100) H 01/01/19 05:08 POC Glucose 168 (70-105) H 01/03/19 06:01 5.9 % (4-6) 01/01/19 05:08 Lactic Acid 1.10 mmol/L (0.7-2.0) 12/23/18 20:07 Calcium 8.6 mg/dL (8.4-10.2) 01/01/19 05:08 Phosphorus 2.10 mg/dL (2.5-4.5) L 12/31/18 03:49 Magnesium 1.90 mg/dL (1.7-2.3) 01/01/19 05:08 0.90 mg/dL (0.1-1.2) 12/26/18 21:39 AST 13 units/L (5-40) 12/26/18 21:39 ALT 6 units/L (7-56) L 12/26/18 21:39 70 units/L (35-129) 12/26/18 21:39 65.0 umol/L (25-60) H 12/23/18 10:55 152 units/L (30-135) H 12/23/18 10:55 6.8 g/dL (6.3-8.2) 12/26/18 21:39 3.4 g/dL (3.9-5) L 12/26/18 21:39 1.0 % 12/26/18 21:39 Triglycerides 110 mg/dL (2-149) 01/01/19 17:12 Cholesterol 157 mg/dL (50-199) 01/01/19 17:12 112 mg/dL (50-130) 01/01/19 17:12 35 mg/dL (40-59) L 01/01/19 17:12 4.48 % 01/01/19 17:12 TSH 0.007 mlU/mL (0.270-4.200) L 12/23/18 10:55 Free T4 1.89 ng/dL (0.76-1.46) H 12/23/18 10:55 Yellow (Yellow) 12/23/18 10:30 Slightly-cloudy (Clear) 12/23/18 10:30 6.0 (5.0-7.0) 12/23/18 10:30 Ur Specific [place] 1.015 (1.003-1.030) 12/23/18 10:30 >500 mg/dL (Negative) 12/23/18 10:30 50 mg/dL (Negative) 12/23/18 10:30 Tr mg/dL (Negative) 12/23/18 10:30 Neg (Negative) 12/23/18 10:30 Neg (Negative) 12/23/18 10:30 Neg (Negative) 12/23/18 10:30 < 2.0 mg/dL (<2.0) 12/23/18 10:30 Ur Leukocyte Esterase Neg (Negative) 12/23/18 10:30 3.0 /HPF (0.0-6.0) 12/23/18 10:30 6.0 /HPF (0.0-6.0) 12/23/18 10:30 U Epithel Cells (Auto) 1.0 /HPF (0-13.0) 12/23/18 10:30 1+ /HPF (Negative) 12/23/18 10:30 Few /HPF 12/23/18 10:30 Presumptive negative 12/23/18 10:30 Presumptive negative 12/23/18 10:30 Ur Barbiturates Screen Presumptive negative 12/23/18 10:30 Ur Phencyclidine Scrn Presumptive negative 12/23/18 10:30 Ur Amphetamines Screen Presumptive negative 12/23/18 10:30 U Benzodiazepines Scrn Presumptive positive 12/23/18 10:30 Presumptive negative 12/23/18 10:30 U Marijuana (THC) Screen Presumptive negative 12/23/18 10:30 Disclamer 12/23/18 10:30 Plasma/Serum Alcohol < 0.01 % (0-0.07) 12/23/18 10:55 Active Medications - Current Medications Current Medications: Generic Name Dose Route Start Last Admin Trade Name Freq PRN Reason Stop Dose Admin Acetaminophen 650 mg 12/25/18 04:00 01/03/19 05:53 Tylenol PO 650 mg Q4H PRN Administration Pain MILD(1-3)/Fever >100.5/FLORES Acetaminophen 650 mg 12/25/18 13:50 12/25/18 13:58 Tylenol CA 650 mg Q4H PRN Administration Pain, Mild (1-3) Amlodipine Besylate 5 mg 12/24/18 10:00 01/03/19 09:22 Norvasc PO 5 mg DAILY AKASH Administration Lipase/Protease/Amylase 1 each 12/27/18 15:18 Pancreaze 10,500 Unit FEEDTUBE PRN PRN For Clogged Feeding Tube Dextrose 50 ml 12/23/18 13:42 D50w (25gm) Syringe IV PRN PRN Hypoglycemia Diphenhydramine HCl 25 mg 01/01/19 16:19 01/02/19 22:07 Benadryl PO 25 mg QHS PRN Administration Itching Duloxetine HCl 30 mg 12/23/18 22:00 01/03/19 09:22 Cymbalta PO 30 mg BID AKASH Administration Ferrous Sulfate 308 mg 12/25/18 10:00 01/03/19 09:21 Ferrous Sulfate PO 308 mg QDAY AKSAH Administration Glipizide 5 mg 01/01/19 08:00 01/03/19 09:22 Glucotrol Xl PO 5 mg DAILY@0800 AKASH Administration Sodium Chloride 1,000 mls @ 75 mls/hr 12/24/18 18:00 01/03/19 02:46 Nacl 0.9% 1000 Ml IV 75 mls/hr DIRECT AKASH Administration Insulin Human Isoph/Insulin Regular 8 unit 01/01/19 17:00 01/03/19 09:22 Humulin 70/30 SUB-Q 8 unit BIDDIAB AKASH Administration Insulin Human Lispro 0 unit 12/27/18 18:00 01/03/19 06:02 Humalog SUB-Q 2 unit Q6HR AKASH Administration Protocol Lacosamide 100 mg 12/29/18 14:00 01/03/19 02:34 Vimpat PO 100 mg Q12H AKASH Administration Lansoprazole 30 mg 12/25/18 10:00 01/03/19 09:22 Prevacid Solutab FEEDTUBE 30 mg BID AKASH Administration Levetiracetam 1,000 mg 12/31/18 10:00 01/03/19 09:21 Keppra PO 1,000 mg BID AKASH Administration Levothyroxine Sodium 100 mcg 12/25/18 06:00 01/03/19 05:52 Synthroid PO 100 mcg DAILY@0600 AKASH Administration Lorazepam 1 mg 12/24/18 17:29 12/27/18 17:53 Ativan IV 1 mg Q4H PRN Administration Agitation Multivitamins 5 ml 12/25/18 10:00 01/03/19 09:21 Centrum Liq PO 5 ml QDAY AKASH Administration Ondansetron HCl 4 mg 12/23/18 13:27 12/24/18 09:28 Zofran IV 4 mg Q8H PRN Administration Nausea And Vomiting Potassium Phos/Sodium Phos 1 each 12/30/18 22:00 01/03/19 05:52 Phos-Nak PO 1 each Q8HR AKASH Administration Scopolamine 1 each 12/30/18 06:00 01/02/19 06:32 Transderm-Scop TD 1 each Q3D AKASH Administration Simple Syrup 15 ml 12/27/18 15:18 Simple Syrup FEEDTUBE PRN PRN Hypoglycemia Simple Syrup 30 ml 12/27/18 15:18 Simple Syrup FEEDTUBE PRN PRN Hypoglycemia Sodium Bicarbonate 325 mg 12/27/18 15:18 Sodium Bicarbonate FEEDTUBE PRN PRN For Clogged Feeding Tube Sodium Chloride 10 ml 12/23/18 22:00 01/03/19 09:23 Sodium Chloride Flush Syringe 10 Ml IV Not Given BID AKASH Sodium Chloride 10 ml 12/23/18 13:27 Sodium Chloride Flush Syringe 10 Ml IV PRN PRN LINE FLUSH Nutrition/Malnutrition Assess - Dietary Evaluation Nutrition/Malnutrition Findings: Nutrition Notes Start: 12/24/18 10:03 Freq: Status: Active Protocol: Document 01/01/19 09:35 BRODERICK (Rec: 01/01/19 11:06 KS [id number]) Co-Sign 01/01/19 09:35 LM Nutrition Notes Initial or Follow up Reassessment Current Diagnosis COPD,Diabetes,Hypertension Other Pertinent Diagnosis CVA, Debility, Seizures, Encephalopathy, SIRS Current Diet Glucerna 1.2 at 55ml/hr Labs/Tests CR - 0.4 Glu - 222 POC Glu - 217 Pertinent Medications Humalog Height 5 ft 6 in Weight 77.6 kg [place] Body Weight (kg) 59.09 BMI 27.6 Weight change and time frame Noted wt change. Likely due to malfunctioning bedscale. Subjective/Other Information Observed Glucerna running at 55ml/hr. Pt tolerating TF. Percent of energy/protein needs met: 101%/85% Burn Absent Trauma Absent Minimum of two criteria Yes Energy Intake (severe) < or equal to 50% Estimated Energy Requirement > or equal to 5 days Fluid Accumulation Moderate to Severe (severe) Reduced Complaint Investigations Officer Strength Measurably Reduced (severe) #1 Nutrition Diagnosis Malnutrition Diagnosis Progress(for reassessment Continues documentation) Is patient on ventilator? No Is Patient Ambulatory and/or Out of Bed No REE-([facility]-confined to bed) 0223.926 Calculation Used for Recommendations [facility] Additional Notes Protein Needs: 93-116g (1.2-1. 5g/kg) Fluid Needs: 1 ml/kcal Nutrition Intervention Change Diet Order: Continue TF Nutrition Support: Glucerna 1.2 at 55 ml/hr Water flush of 100 mls q 4 hrs Kcal 1,584 Protein (gm) 79 Fluid (mL) 1,063 Goal #1 TF tolerance Goal #2 Meet at least 75% of calorie and protein needs via TF Anticipated Discharge Needs: Unable to determine at this time Follow-Up By: 01/08/19 Additional Comments Follow for TF
[2019-01-03 20:19] LABS: INR 1.05 (0.87-1.13)
[2019-01-03 20:29] LABS: Partial Thromboplastin Time 25.8 Sec. (24.2-36.6)
[2019-01-04] MEDS: INSULIN LISPRO 100 UNIT/ML SUB-Q SCH ×6 (01:02→23:41)
--- NOTE | 2019-01-04 01:41 | XRay Report ---
ABDOMEN 1 VIEW 1:17 AM INDICATION / CLINICAL INFORMATION: TO CHECK FOR NG TUBE PLACEMENT.. COMPARISON: 01/02/19 FINDINGS: TUBES / LINES: Weighted feeding tube has pulled with the tip at the level of the gastroesophageal tena ction. Tube should be advanced 10-15 cm for optimal positioning. BOWEL GAS PATTERN: No significant abnormality. FREE AIR / EXTRALUMINAL GAS: None seen. ADDITIONAL FINDINGS: No significant additional findings. IMPRESSION: 1. Feeding tube at the level of the gastroesophageal junction. Signer Name: Judi Del Toro MD Signed: 01/04/2019 1:37 AM Workstation Name: [id number]
[2019-01-04] MEDS: LACOSAMIDE 100 MG TAB PO SCH ×2 (02:29→14:31)
[2019-01-04] MEDS: LEVOTHYROXINE 100 MCG TAB PO SCH (07:14)
[2019-01-04] MEDS: PHOS-NAK POWDER PACKET PO SCH ×3 (07:14→21:39)
[2019-01-04] MEDS ORDERED: WATER FOR IRRIG STERILE 1,000 ML BOTTLE ONE (07:45)
[2019-01-04] MEDS ORDERED: WATER FOR IRRIG STERILE 250 ML BOTTLE IR ONE (07:45)
[2019-01-04] MEDS ORDERED: LIDOCAINE MPF (2%) 20 MG/1 ML VIAL 5 ML ONE (08:00)
[2019-01-04] MEDS: glipiZIDE XL 5 MG TAB PO SCH (08:31)
[2019-01-04] MEDS: INSULIN NPH/REGULAR 70/30 INJ SUB-Q SCH ×2 (08:31→20:42)
[2019-01-04] MEDS ORDERED: ceFAZolin/Water 2 GM/20 ML 2 GM/20 ML SYRINGE IV NR (09:00)
[2019-01-04] MEDS ORDERED: SODIUM CHLORIDE 0.9% 1000 ML 1,000 ML IV SCH ×2 (09:00→10:00)
--- NOTE | 2019-01-04 09:07 | Anesthesia Consultation ---
Anesthesia Consult and Med Hx Date of service: 01/04/19 - Airway Anesthetic Teeth Evaluation: Poor ROM Head & Neck: Adequate Mental/Hyoid Distance: Adequate Mallampati Class: Class II Intubation Access Assessment: Probably Good - Pulmonary Exam CTA: Yes - Cardiac Exam Cardiac Exam: RRR - Pre-Operative Health Status ASA Pre-Surgery Classification: ASA3 Proposed Anesthetic Plan: MAC - Pulmonary Hx Asthma: Yes Hx Respiratory Symptoms: No COPD: Yes (asthma) Hx Pneumonia: No - Cardiovascular System Hx Hypertension: Yes - Central Nervous System Hx Seizures: Yes (On account of metabolic encephalopathy.) CVA: Yes (Left.sided weakness) - Gastrointestinal Hx Gastroesophageal Reflux Disease: Yes (With a Hx. of Dysphagia.) - Endocrine Hx Renal Disease: No Hx Non-Insulin Dependent Diabetes: Yes Hx Thyroid Disease: Yes Hx Hypothyroidism: Yes - Other Systems Hx Cancer: No Hx Obesity: No - Additional Comments Anesthesia Medical History Comments: No recorded previous anesthesia complications.
--- NOTE | 2019-01-04 09:21 | Anesthesia Day of Surgery ---
Anesthesia Day of Surgery - Day of Surgery Patient Examined: Yes Patient H&P Reviewed: Yes Patient is NPO: Yes
[2019-01-04] MEDS ORDERED: PROPOFOL 200 MG/20 ML VIAL IV ONE (09:40)
[2019-01-04] MEDS ORDERED: fentaNYL 100 MCG/2 ML INJ ONE (09:40)
[2019-01-04] MEDS ORDERED: ceFAZolin/Water 2 GM/20 ML 2 GM/20 ML SYRINGE IV ONE (09:53)
--- NOTE | 2019-01-04 10:29 | Operative Report ---
Operative Report Operative Report: Pre procedure diagnosis: Inability to swallow due CVA Post procedure diagnosis: same Procedure: Esophagogastroduodenoscopy with percutaneous endoscopic gastrostomy Endoscopist: Jamie Blanco MD (Jenny) Medications: Per anesthesia- see separate records for details./ Ancef 2 gm IV Complications: none Estimated blood loss: None After careful discussion of the nature and purpose of the procedure, details of the technique, risks, benefits and alternatives consent was obtained from patient's family. The patient was placed in the supineposition and medicated by anesthesia- see separate records for details. The tip of the olympus video upper scope was passed per orum under direct view through the mouth and into the esophagus, stomach and duodenum. The scope was advanced to the secondportion of the duodenum without difficulty. The second portion of the duodenum wasnormal. The bulb revealed normal mucosa. The scope was withdrawn back into the stomach and the stomach gently insufflated with air. The antrum revealed normal mucosa. The scope was then retroflexed and partially withdrawn to inspect the proximal stomach. The cardia, fundus and body were normal. The stomach was insufflated and a suitable gastrostomy site selected by transillumination and percutaneous compression demonstrating good opposition of the stomach and abdominal wall. The abdomen was prepped and draped in sterile fashion and 1% lidocaine instilled at the optimal site. A small incision was made and the tissue spread with sterile hemostats. The needle and catheter were inserted percutaneously into the stomach without difficulty under direct view, using negative pressure and monitoring for any air coming back in syringe. The needle was withdrawn followed by insertion of the guidewire through the catheter. The guidewire was grasped by the snare and positioned by withdrawal of the scope. A [employer] 20 gauge gastrostomy tube was pulled into place from the abdominal side of the wire to a snug fit at 3 cm at outer surface. The external bumper was applied and the site again dressed in sterile fashion. The scope was then withdrawn in the forward view. The EG junction was at 40 cm. The esophagus revealed normal mucosa throughout. . The procedure was well tolerated and the patient was observed in the GI recovery unit. IMPRESSION: S/p Percutaneous Endoscopic gastrostomy. Plan: Post op orders on chart. - nutrition consult for tube feeds. - start tube feeds in 6 hours. - keep head of bed elevated.
[2019-01-04] MEDS: LANSOPRAZOLE 30 MG SOLUTAB FEEDTUBE SCH ×2 (11:30→21:40)
[2019-01-04] MEDS: amLODIPine 5 MG TAB PO SCH (11:31)
[2019-01-04] MEDS: levETIRAcetam 500 MG/5 ML ORAL LIQD PO SCH ×2 (11:31→21:39)
[2019-01-04] MEDS: FERROUS SULFATE 308 MG (62mg Elemental Iron) / 7 ML ELIXIR PO SCH (11:31)
[2019-01-04] MEDS: MULTIVITAMINS 5 ML ORAL LIQUID PO SCH (11:32)
[2019-01-04] MEDS: DULoxetine 30 MG CAP PO SCH ×2 (11:32→21:40)
--- NOTE | 2019-01-04 12:19 | Post Anesthesia Evaluation ---
- Post Anesthesia Evaluation Patient Participated: Yes (returned to baseline mental status) Airway Patent: Yes Stable Respiratory Function: Yes Nausea/Vomiting: No Temp > 96.8F: Yes Pain Manageable: Yes Adequeate Hydration: Yes Anesthesia Complications: No
[2019-01-04] MEDS ORDERED: LIPASE 10,500/PROTEASE 25,000/AMYLASE 43,750 (UNITS) DR CAP FEEDTUBE PRN ×2 (13:37→18:25)
[2019-01-04] MEDS ORDERED: SODIUM BICARBONATE 325 MG TAB FEEDTUBE PRN ×2 (13:37→18:25)
[2019-01-04] MEDS ORDERED: SIMPLE SYRUP 15 ML FEEDTUBE PRN ×4 (13:37→18:25)
--- NOTE | 2019-01-04 13:41 | Progress Note ---
Assessment and Plan Assessment and plan: 73 yr old Patient with a history of hypertension diabetes osteoarthritis COPD CVA with left hemiparesis and debility admitted through emergency room with history of altered mental status and found to have new onset multiple seizures. Neurology evaluated placed on antiepileptic medications Speech and swallow evaluated failed swallow evaluation recommended PEG, today patient underwent PEG placement, started tube feeding at 6:00 in the evening, possible discharge tomorrow with home health versus placement stable --Dysphagia/abnormal swallow eval; Swallow Evaluation abnormal , advice PEG s/p PEG placement. Today Start tube feeds at 6pm today --Acute CVA; left weakness Aspirin and statin, PT,OT rehabilitation. Possible placement --Metabolic Encephalopathy Etiology secondary to CVA and seizure disorder. Continue to treat underlying causes. --Seizure disorder; No new episodes of seizures , mild facial twitches , on antiepileptic medications Christy and Tray Neurology following , continue seizure precautions --Gen.Debility PT/OT, supportive care --Severe hypokalemia; Resolved --Hypomagnesemia: Hypeo phosphatemia Resolved, Closely monitor electrolytes --Diabetes mellitus Continue Accu-Cheks and sliding scale insulin. --HTN (hypertension) Well control with medical management. --Hypothyroidism Continue Synthroid daily --DVT prophylaxis; Lovenox Monitor closely and adjust management as needed Disposition; discharged home with home health versus placement If patient tolerates pretreats Plan of care is reviewed with the patient and family and her nurse History Interval history: Since seen and examined medical records reviewed Patient underwent PEG placement today Patient is alert and awake, confused at times Vital signs noted Hospitalist Physical - Constitutional Vitals: Temp Pulse Resp BP Pulse Ox 97.9 F 86 19 138/78 98 01/04/19 10:28 01/04/19 11:31 01/04/19 10:58 01/04/19 11:31 01/04/19 10:58 General appearance: Present: no acute distress, well-nourished, other (responds appropriately, confused at times) - EENT Eyes: Present: PERRL, EOM intact - Neck Neck: Present: supple, normal ROM - Respiratory Respiratory effort: normal Respiratory: bilateral: diminished, negative: rales, rhonchi, wheezing - Cardiovascular Rhythm: regular Heart Sounds: Present: S1 & S2 - Extremities Extremities: no ischemia, No edema - Abdominal General gastrointestinal: soft, non-tender, non-distended, normal bowel sounds, other (PEG tube in place) - Integumentary Integumentary: Present: clear, warm - Psychiatric Psychiatric: appropriate mood/affect, cooperative - Neurologic Neurologic: other (left-sided hemiparesis, slow speech) Results - Labs CBC & Chem 7: 12/29/18 09:50 01/01/19 05:08 Labs: Laboratory Last Values WBC 10.9 K/mm3 (4.5-11.0) 12/29/18 09:50 RBC 3.89 M/mm3 (3.65-5.03) 12/29/18 09:50 Hgb 11.3 gm/dl (10.1-14.3) 12/29/18 09:50 Hct 34.5 % (30.3-42.9) 12/29/18 09:50 MCV 89 fl (79-97) 12/29/18 09:50 MCH 29 pg (28-32) 12/29/18 09:50 MCHC 33 % (30-34) 12/29/18 09:50 RDW 17.2 % (13.2-15.2) H 12/29/18 09:50 Plt Count 157 K/mm3 (140-440) 12/29/18 09:50 Lymph % (Auto) 11.8 % (13.4-35.0) L 12/29/18 09:50 [place] % (Auto) 5.9 % (0.0-7.3) 12/29/18 09:50 Eos % (Auto) 1.4 % (0.0-4.3) 12/29/18 09:50 Baso % (Auto) 0.2 % (0.0-1.8) 12/29/18 09:50 Lymph # 1.3 K/mm3 (1.2-5.4) 12/29/18 09:50 [place] # 0.6 K/mm3 (0.0-0.8) 12/29/18 09:50 Eos # 0.2 K/mm3 (0.0-0.4) 12/29/18 09:50 Baso # 0.0 K/mm3 (0.0-0.1) 12/29/18 09:50 Add Manual Diff Complete 12/29/18 09:50 Total Counted 100 12/29/18 09:50 Seg Neutrophils % 80.7 % (40.0-70.0) H 12/29/18 09:50 Seg Neuts % (Manual) 80.0 % (40.0-70.0) H 12/29/18 09:50 Band Neutrophils % 0 % 12/29/18 09:50 Lymphocytes % (Manual) 11.0 % (13.4-35.0) L 12/29/18 09:50 Reactive Lymphs % (Man) 0 % 12/29/18 09:50 Monocytes % (Manual) 4.0 % (0.0-7.3) 12/29/18 09:50 Eosinophils % (Manual) 4.0 % (0.0-4.3) 12/29/18 09:50 Basophils % (Manual) 1.0 % (0.0-1.8) 12/29/18 09:50 Metamyelocytes % 0 % 12/29/18 09:50 Myelocytes % 0 % 12/29/18 09:50 Promyelocytes % 0 % 12/29/18 09:50 Blast Cells % 0 % 12/29/18 09:50 Nucleated RBC % Not Reportable 12/29/18 09:50 Seg Neutrophils # 8.8 K/mm3 (1.8-7.7) H 12/29/18 09:50 Seg Neutrophils # Man 8.7 K/mm3 (1.8-7.7) H 12/29/18 09:50 Band Neutrophils # 0.0 K/mm3 12/29/18 09:50 Lymphocytes # (Manual) 1.2 K/mm3 (1.2-5.4) 12/29/18 09:50 Abs React Lymphs (Man) 0.0 K/mm3 12/29/18 09:50 Monocytes # (Manual) 0.4 K/mm3 (0.0-0.8) 12/29/18 09:50 Eosinophils # (Manual) 0.4 K/mm3 (0.0-0.4) 12/29/18 09:50 Basophils # (Manual) 0.1 K/mm3 (0.0-0.1) 12/29/18 09:50 Metamyelocytes # 0.0 K/mm3 12/29/18 09:50 Myelocytes # 0.0 K/mm3 12/29/18 09:50 Promyelocytes # 0.0 K/mm3 12/29/18 09:50 Blast Cells # 0.0 K/mm3 12/29/18 09:50 WBC Morphology Not Reportable 12/29/18 09:50 Hypersegmented Neuts Not Reportable 12/29/18 09:50 Hyposegmented Neuts Not Reportable 12/29/18 09:50 Hypogranular Neuts Not Reportable 12/29/18 09:50 Smudge Cells Not Reportable 12/29/18 09:50 Toxic Granulation Not Reportable 12/29/18 09:50 Toxic Vacuolation Not Reportable 12/29/18 09:50 Dohle Bodies Not Reportable 12/29/18 09:50 Pelger-Huet Anomaly Not Reportable 12/29/18 09:50 Clovis Rods Not Reportable 12/29/18 09:50 Platelet Estimate Consistent w auto 12/29/18 09:50 Clumped Platelets Not Reportable 12/29/18 09:50 Plt Clumps, EDTA Not Reportable 12/29/18 09:50 Large Platelets Not Reportable 12/29/18 09:50 Giant Platelets Not Reportable 12/29/18 09:50 Platelet Satelliting Not Reportable 12/29/18 09:50 Plt Morphology Comment Not Reportable 12/29/18 09:50 RBC Morphology Not Reportable 12/29/18 09:50 Dimorphic RBCs Not Reportable 12/29/18 09:50 Polychromasia Not Reportable 12/29/18 09:50 Hypochromasia Not Reportable 12/29/18 09:50 Poikilocytosis Few 12/29/18 09:50 Anisocytosis Few 12/29/18 09:50 Microcytosis Not Reportable 12/29/18 09:50 Macrocytosis Not Reportable 12/29/18 09:50 Spherocytes Not Reportable 12/29/18 09:50 Pappenheimer Bodies Not Reportable 12/29/18 09:50 Sickle Cells Not Reportable 12/29/18 09:50 Target Cells Not Reportable 12/29/18 09:50 Tear Drop Cells Not Reportable 12/29/18 09:50 Ovalocytes Few 12/29/18 09:50 Helmet Cells Not Reportable 12/29/18 09:50 Arriaga-[place] Bodies Not Reportable 12/29/18 09:50 Keaton Rings Not Reportable 12/29/18 09:50 Sid Cells Not Reportable 12/29/18 09:50 Bite Cells Not Reportable 12/29/18 09:50 Crenated Cell Not Reportable 12/29/18 09:50 Elliptocytes Rare 12/29/18 09:50 Acanthocytes (Spur) Not Reportable 12/29/18 09:50 Rouleaux Not Reportable 12/29/18 09:50 Hemoglobin C Crystals Not Reportable 12/29/18 09:50 Schistocytes Not Reportable 12/29/18 09:50 Malaria parasites Not Reportable 12/29/18 09:50 Ulises Bodies Not Reportable 12/29/18 09:50 Hem Pathologist Commnt No 12/29/18 09:50 PT 13.4 Sec. (12.2-14.9) 01/03/19 20:00 INR 1.05 (0.87-1.13) 01/03/19 20:00 APTT 25.8 Sec. (24.2-36.6) 01/03/19 20:00 VBG pH 7.333 (7.320-7.420) 12/23/18 11:13 Sodium 137 mmol/L (137-145) 01/01/19 05:08 Potassium 4.5 mmol/L (3.6-5.0) 01/01/19 05:08 Chloride 98.0 mmol/L (98-107) 01/01/19 05:08 Carbon Dioxide 29 mmol/L (22-30) 01/01/19 05:08 Anion Gap 15 mmol/L 01/01/19 05:08 BUN 8 mg/dL (7-17) 01/01/19 05:08 Creatinine 0.4 mg/dL (0.7-1.2) L 01/01/19 05:08 Estimated GFR > 60 ml/min 01/01/19 05:08 BUN/Creatinine Ratio 20 % 01/01/19 05:08 Glucose 222 mg/dL (65-100) H 01/01/19 05:08 POC Glucose 161 (70-105) H 01/04/19 12:23 Hemoglobin A1c 5.9 % (4-6) 01/01/19 05:08 Lactic Acid 1.10 mmol/L (0.7-2.0) 12/23/18 20:07 Calcium 8.6 mg/dL (8.4-10.2) 01/01/19 05:08 Phosphorus 2.10 mg/dL (2.5-4.5) L 12/31/18 03:49 Magnesium 1.90 mg/dL (1.7-2.3) 01/01/19 05:08 Total Bilirubin 0.90 mg/dL (0.1-1.2) 12/26/18 21:39 AST 13 units/L (5-40) 12/26/18 21:39 ALT 6 units/L (7-56) L 12/26/18 21:39 Alkaline Phosphatase 70 units/L (35-129) 12/26/18 21:39 Ammonia 65.0 umol/L (25-60) H 12/23/18 10:55 Total Creatine Kinase 152 units/L (30-135) H 12/23/18 10:55 Total Protein 6.8 g/dL (6.3-8.2) 12/26/18 21:39 Albumin 3.4 g/dL (3.9-5) L 12/26/18 21:39 Albumin/Globulin Ratio 1.0 % 12/26/18 21:39 Triglycerides 110 mg/dL (2-149) 01/01/19 17:12 Cholesterol 157 mg/dL (50-199) 01/01/19 17:12 LDL Cholesterol Direct 112 mg/dL (50-130) 01/01/19 17:12 HDL Cholesterol 35 mg/dL (40-59) L 01/01/19 17:12 Cholesterol/HDL Ratio 4.48 % 01/01/19 17:12 TSH 0.007 mlU/mL (0.270-4.200) L 12/23/18 10:55 Free T4 1.89 ng/dL (0.76-1.46) H 12/23/18 10:55 Urine Color Yellow (Yellow) 12/23/18 10:30 Urine Turbidity Slightly-cloudy (Clear) 12/23/18 10:30 Urine pH 6.0 (5.0-7.0) 12/23/18 10:30 Ur Specific Barto 1.015 (1.003-1.030) 12/23/18 10:30 Urine Protein >500 mg/dL (Negative) 12/23/18 10:30 Urine Glucose (UA) 50 mg/dL (Negative) 12/23/18 10:30 Urine Ketones Tr mg/dL (Negative) 12/23/18 10:30 Urine Blood Neg (Negative) 12/23/18 10:30 Urine Nitrite Neg (Negative) 12/23/18 10:30 Urine Bilirubin Neg (Negative) 12/23/18 10:30 Urine Urobilinogen < 2.0 mg/dL (<2.0) 12/23/18 10:30 Ur Leukocyte Esterase Neg (Negative) 12/23/18 10:30 Urine WBC (Auto) 3.0 /HPF (0.0-6.0) 12/23/18 10:30 Urine RBC (Auto) 6.0 /HPF (0.0-6.0) 12/23/18 10:30 U Epithel Cells (Auto) 1.0 /HPF (0-13.0) 12/23/18 10:30 Urine Bacteria (Auto) 1+ /HPF (Negative) 12/23/18 10:30 Urine Mucus Few /HPF 12/23/18 10:30 Urine Opiates Screen Presumptive negative 12/23/18 10:30 Urine Methadone Screen Presumptive negative 12/23/18 10:30 Ur Barbiturates Screen Presumptive negative 12/23/18 10:30 Ur Phencyclidine Scrn Presumptive negative 12/23/18 10:30 Ur Amphetamines Screen Presumptive negative 12/23/18 10:30 U Benzodiazepines Scrn Presumptive positive 12/23/18 10:30 Urine Cocaine Screen Presumptive negative 12/23/18 10:30 U Marijuana (THC) Screen Presumptive negative 12/23/18 10:30 Drugs of Abuse Note Disclamer 12/23/18 10:30 Plasma/Serum Alcohol < 0.01 % (0-0.07) 12/23/18 10:55 Active Medications - Current Medications Current Medications: Generic Name Dose Route Start Last Admin Trade Name Freq PRN Reason Stop Dose Admin Acetaminophen 650 mg 12/25/18 04:00 01/03/19 05:53 Tylenol PO 650 mg Q4H PRN Administration Pain MILD(1-3)/Fever >100.5/FLORES Acetaminophen 650 mg 12/25/18 13:50 12/25/18 13:58 Tylenol HI 650 mg Q4H PRN Administration Pain, Mild (1-3) Amlodipine Besylate 5 mg 12/24/18 10:00 01/04/19 11:31 Norvasc PO 5 mg DAILY AKASH Administration Lipase/Protease/Amylase 1 each 12/27/18 15:18 Sheldon Marques 10,500 Unit FEEDTUBE PRN PRN For Clogged Feeding Tube Lipase/Protease/Amylase 1 each 01/04/19 13:37 Sheldon Marques 10,500 Unit FEEDTUBE PRN PRN For Clogged Feeding Tube Dextrose 50 ml 12/23/18 13:42 D50w (25gm) Syringe IV PRN PRN Hypoglycemia Diphenhydramine HCl 25 mg 01/01/19 16:19 01/02/19 22:07 Benadryl PO 25 mg QHS PRN Administration Itching Duloxetine HCl 30 mg 12/23/18 22:00 01/04/19 11:32 Cymbalta PO 30 mg BID AKASH Administration Ferrous Sulfate 308 mg 12/25/18 10:00 01/04/19 11:31 Ferrous Sulfate PO 308 mg QDAY AKASH Administration Glipizide 5 mg 01/01/19 08:00 01/04/19 08:31 Glucotrol Xl PO Not Given DAILY@0800 AKASH Cefazolin Sodium 2 gm in 20 mls @ 80 mls/hr 01/04/19 09:00 Ancef/Sterile Water 2 Gm/20 Ml IV 01/04/19 16:00 PREOP NR Protocol Sodium Chloride 1,000 mls @ 50 mls/hr 01/04/19 10:00 01/04/19 09:55 Nacl 0.9% 1000 Ml IV 50 mls/hr DIRECT AKASH Administration Insulin Human Isoph/Insulin Regular 8 unit 01/01/19 17:00 01/04/19 08:31 Humulin 70/30 SUB-Q Not Given BIDDIAB AKASH Insulin Human Lispro 0 unit 12/27/18 18:00 01/04/19 11:33 Humalog SUB-Q Not Given Q6HR AKASH Protocol Lacosamide 100 mg 12/29/18 14:00 01/04/19 02:29 Vimpat PO 100 mg Q12H AKASH Administration Lansoprazole 30 mg 12/25/18 10:00 01/04/19 11:30 Prevacid Solutab FEEDTUBE 30 mg BID AKASH Administration Levetiracetam 1,000 mg 12/31/18 10:00 01/04/19 11:31 Keppra PO 1,000 mg BID AKASH Administration Levothyroxine Sodium 100 mcg 12/25/18 06:00 01/04/19 07:14 Synthroid PO Not Given DAILY@0600 AKASH Lorazepam 1 mg 12/24/18 17:29 12/27/18 17:53 Ativan IV 1 mg Q4H PRN Administration Agitation Multivitamins 5 ml 12/25/18 10:00 01/04/19 11:32 Centrum Liq PO 5 ml QDAY AKASH Administration Ondansetron HCl 4 mg 12/23/18 13:27 12/24/18 09:28 Zofran IV 4 mg Q8H PRN Administration Nausea And Vomiting Potassium Phos/Sodium Phos 1 each 12/30/18 22:00 01/04/19 07:14 Phos-Nak PO Not Given Q8HR AKASH Scopolamine 1 each 12/30/18 06:00 01/02/19 06:32 Transderm-Scop TD 1 each Q3D AKASH Administration Simple Syrup 15 ml 12/27/18 15:18 Simple Syrup FEEDTUBE PRN PRN Hypoglycemia Simple Syrup 30 ml 12/27/18 15:18 Simple Syrup FEEDTUBE PRN PRN Hypoglycemia Simple Syrup 15 ml 01/04/19 13:37 Simple Syrup FEEDTUBE PRN PRN Hypoglycemia Simple Syrup 30 ml 01/04/19 13:37 Simple Syrup FEEDTUBE PRN PRN Hypoglycemia Sodium Bicarbonate 325 mg 12/27/18 15:18 Sodium Bicarbonate FEEDTUBE PRN PRN For Clogged Feeding Tube Sodium Bicarbonate 325 mg 01/04/19 13:37 Sodium Bicarbonate FEEDTUBE PRN PRN For Clogged Feeding Tube Sodium Chloride 10 ml 12/23/18 22:00 01/04/19 11:32 Sodium Chloride Flush Syringe 10 Ml IV 10 ml BID AKASH Administration Sodium Chloride 10 ml 12/23/18 13:27 Sodium Chloride Flush Syringe 10 Ml IV PRN PRN LINE FLUSH Nutrition/Malnutrition Assess - Dietary Evaluation Nutrition/Malnutrition Findings: Nutrition Notes Start: 12/24/18 10:03 Freq: Status: Active Protocol: Document 01/01/19 09:35 KS (Rec: 01/01/19 11:06 KS [id number]) Co-Sign 01/01/19 09:35 LM Nutrition Notes Initial or Follow up Reassessment Current Diagnosis COPD,Diabetes,Hypertension Other Pertinent Diagnosis CVA, Debility, Seizures, Encephalopathy, SIRS Current Diet Glucerna 1.2 at 55ml/hr Labs/Tests CR - 0.4 Glu - 222 POC Glu - 217 Pertinent Medications Humalog Height 5 ft 6 in Weight 77.6 kg Eldred Body Weight (kg) 59.09 BMI 27.6 Weight change and time frame Noted wt change. Likely due to malfunctioning bedscale. Subjective/Other Information Observed Glucerna running at 55ml/hr. Pt tolerating TF. Percent of energy/protein needs met: 101%/85% Burn Absent Trauma Absent Minimum of two criteria Yes Energy Intake (severe) < or equal to 50% Estimated Energy Requirement > or equal to 5 days Fluid Accumulation Moderate to Severe (severe) Reduced Metal Grader Strength Measurably Reduced (severe) #1 Nutrition Diagnosis Malnutrition Diagnosis Progress(for reassessment Continues documentation) Is patient on ventilator? No Is Patient Ambulatory and/or Out of Bed No REE-(Erath-St. Jeor-confined to bed) [phone] Calculation Used for Recommendations Erath-St Jeor Additional Notes Protein Needs: 93-116g (1.2-1. 5g/kg) Fluid Needs: 1 ml/kcal Nutrition Intervention Change Diet Order: Continue TF Nutrition Support: Glucerna 1.2 at 55 ml/hr Water flush of 100 mls q 4 hrs Kcal 1,584 Protein (gm) 79 Fluid (mL) 1,063 Goal #1 TF tolerance Goal #2 Meet at least 75% of calorie and protein needs via TF Anticipated Discharge Needs: Unable to determine at this time Follow-Up By: 01/08/19 Additional Comments Follow for TF
[2019-01-04] MEDS: ACETAMINOPHEN 325 MG/10.15 ML ORAL LIQD UNIT DOSE PO PRN ×2 (19:49→23:45)
[2019-01-04] MEDS: diphenhydrAMINE 25 MG CAP PO PRN (23:45)
[2019-01-05] MEDS: SCOPOLAMINE TRANSDERMAL PATCH 72 HR TD SCH (05:24)
[2019-01-05] MEDS: LEVOTHYROXINE 100 MCG TAB PO SCH (05:25)
[2019-01-05] MEDS: PHOS-NAK POWDER PACKET PO SCH ×3 (05:25→22:41)
[2019-01-05] MEDS: LACOSAMIDE 100 MG TAB PO SCH ×2 (05:25→14:15)
[2019-01-05] MEDS: ACETAMINOPHEN 325 MG/10.15 ML ORAL LIQD UNIT DOSE PO PRN (05:29)
[2019-01-05] MEDS: INSULIN LISPRO 100 UNIT/ML SUB-Q SCH ×3 (06:10→17:11)
[2019-01-05] MEDS: amLODIPine 5 MG TAB PO SCH (10:00)
[2019-01-05] MEDS: levETIRAcetam 500 MG/5 ML ORAL LIQD PO SCH ×2 (10:00→22:41)
[2019-01-05] MEDS: LANSOPRAZOLE 30 MG SOLUTAB FEEDTUBE SCH ×2 (10:00→22:41)
[2019-01-05] MEDS: DULoxetine 30 MG CAP PO SCH ×2 (10:01→22:41)
[2019-01-05] MEDS: FERROUS SULFATE 308 MG (62mg Elemental Iron) / 7 ML ELIXIR PO SCH (10:01)
[2019-01-05] MEDS: MULTIVITAMINS 5 ML ORAL LIQUID PO SCH (10:01)
[2019-01-05] MEDS: glipiZIDE XL 5 MG TAB PO SCH (10:02)
[2019-01-05] MEDS: INSULIN NPH/REGULAR 70/30 INJ SUB-Q SCH ×2 (10:02→17:10)
[2019-01-05] MEDS ORDERED: LIPASE 10,500/PROTEASE 25,000/AMYLASE 43,750 (UNITS) DR CAP FEEDTUBE PRN (10:23)
[2019-01-05] MEDS ORDERED: SIMPLE SYRUP 15 ML FEEDTUBE PRN ×2 (10:23)
[2019-01-05] MEDS ORDERED: SODIUM BICARBONATE 325 MG TAB FEEDTUBE PRN (10:23)
--- NOTE | 2019-01-05 11:37 | Gastroenterology Progress Note ---
Assessment and Plan This is a 73 yo female admitted for left side weakness and found to have acute ischemic stroke and hospital stay complicated with seizure, metabolic encephalopathy, and electrolyte derangement. GI consulted for dysphagia and PEG placement. # PEG placment #s/p CVA # seizure # Metabolic encephalopathy. # dysphagia: multifactorial with all of above -s/p EGD with PEG placement yesterday -PEG site this am w/o s/s of infection or bleeding -currently tolerating TFs -split gauze dressing PRN -continue daily PEG care -continue supportive care -no further recommendations per GI standpoint -will sign off. please call if needed Subjective Date of service: 01/05/19 Principal diagnosis: PEG placement Interval history: No acute distress. PEG site this am w/o redness, swelling, odor, drainage, or bleeding. Tolerating TFs. Objective - Constitutional Vitals: Temp Pulse Resp BP Pulse Ox 98.4 F 90 18 118/62 100 01/05/19 08:40 01/05/19 10:00 01/05/19 08:40 01/05/19 10:00 01/05/19 08:40 General appearance: no acute distress - Respiratory Respiratory effort: normal - Cardiovascular Rhythm: regular - Gastrointestinal General gastrointestinal: Present: soft, non-distended, normal bowel sounds, other (+PEG) - Labs CBC & Chem 7: 12/29/18 09:50 01/01/19 05:08 Labs: Laboratory Results - last 24 hr 01/04/19 01/04/19 01/05/19 12:23 23:30 06:01 POC Glucose 161 H 224 H 152 H
[2019-01-05] MEDS: diphenhydrAMINE 25 MG CAP PO PRN (12:31)
--- NOTE | 2019-01-05 14:39 | Discharge Summary ---
Providers - Providers Date of Admission: 12/23/18 13:27 Date of discharge: 01/07/19 Attending physician: BONIFACIO CHOU 12/23/18 13:55 Consult to Case Management [CONS] Routine Services Needed at Discharge: Other Notified:: DELORES Additional Physician Instructions: discharge planning. Physical Therapy Evaluation and Treat [CONS] Urgent Comment: Reason For Exam: Debility 12/24/18 17:30 Consult to Physician [CONS] Routine Comment: called answ. serv. / sree Consulting Provider: ARCHIE ZAMARRIPA Physician Instructions: Reason For Exam: ams 12/26/18 20:25 Speech Therapy Evaluation and Treat [CONS] Urgent Reason For Exam: cough with food 12/27/18 10:25 Consult to Dietitian/Nutrition [CONS] Stat Physician Instructions: Reason For Exam: bolus feeds for home Reason for Consult: Write/Manage Tube Feeding 01/01/19 21:22 Consult to Physician [CONS] Routine Comment: Consulting Provider: MICHI MARQEUZ Physician Instructions: Reason For Exam: CVA/Dysphagia/PEG placement 01/04/19 13:37 Consult to Dietitian/Nutrition [CONS] Routine Physician Instructions: Assess nutrtn needs, initiate, modify, manage TF Reason For Exam: BOLUS feeds for home Reason for Consult: Write/Manage Tube Feeding Reason for Consult: Write/Manage Tube Feeding 01/05/19 10:24 Consult to Case Management [CONS] Routine Services Needed at Discharge: Home Health Services Notified:: renan Phone number called:: [phone] Was contact made?: Yes If yes, spoke with:: renan Time called:: 10:25 Additional Physician Instructions: Bolus regimen for D/C home: Total of 6 cans of Glucerna 1.2 daily. 2 cans at 8 am. 1 can every 3 hours from 11 am to 8 pm. Water flush of 50 mls before and after each feeding. Provides 1710 kcal and 85 g protein. 1 can= 237 ml. Erlinda Garcia RDN,LOTUS. 01/05/19 11:47 Consult to Dietitian/Nutrition [CONS] Routine Physician Instructions: Assess nutrtn needs, initiate, modify, manage TF Reason For Exam: Reason for Consult: Write/Manage Tube Feeding Reason for Consult: Write/Manage Tube Feeding 01/05/19 11:57 Consult to Dietitian/Nutrition [CONS] Routine Physician Instructions: Assess nutrtn needs, initiate, modify, manage TF Reason For Exam: Reason for Consult: Write/Manage Tube Feeding Reason for Consult: Write/Manage Tube Feeding 01/05/19 11:59 Consult to Dietitian/Nutrition [CONS] Routine Physician Instructions: Assess nutrtn needs, initiate, modify, manage TF Reason For Exam: Reason for Consult: Write/Manage Tube Feeding Reason for Consult: Write/Manage Tube Feeding 01/05/19 12:06 Consult to Dietitian/Nutrition [CONS] Routine Physician Instructions: Assess nutrtn needs, initiate, modify, manage TF Reason For Exam: Reason for Consult: Write/Manage Tube Feeding Reason for Consult: Write/Manage Tube Feeding Primary care physician: SILK SCREEN PRINTER HELPER Hospitalization Condition: Serious Pertinent studies: Head CT Brain MRI CXR Abdominal xrys Hospital course: 73 yr old Patient with a history of hypertension diabetes osteoarthritis COPD CVA with left hemiparesis and debility admitted through emergency room with history of altered mental status and found to have new onset multiple seizures. Neurology evaluated placed on antiepileptic medications. Speech and swallow evaluated - patient failed swallow evaluation, recommended PEG, underwent PEG placement, started tube feeding, discharge with home health with family support in stable condition. Discharge diagnosis and Mx: /Dysphagia/abnormal swallow eval; Swallow Evaluation abnormal , adviced PEG s/p PEG placement. tolerating tube feeds /-Acute CVA; left weakness cont Aspirin and statin, PT,OT rehabilitation. HH on d/c, family did not want placement /-Metabolic Encephalopathy Etiology secondary to CVA and seizure disorder. Continue to treat underlying causes. /Seizure disorder; No new episodes of seizures , mild facial twitches , on antiepileptic medications Christy and Tray Neurology following , continue seizure precautions /-Generalized Debility PT/OT, supportive care /Severe hypokalemia; Resolved /-Hypomagnesemia: Hypeo phosphatemia Resolved, Closely monitor electrolytes /-Diabetes mellitus Continue Accu-Cheks and sliding scale insulin. /-HTN (hypertension) Well control with medical management. /Hypothyroidism Continue Synthroid daily /-DVT prophylaxis; Lovenox Disposition; discharged home with home health Hospitalist Physical General appearance: Present: no acute distress, well-nourished, other (responds appropriately, confused at times) - EENT Eyes: Present: PERRL, EOM intact - Neck Neck: Present: supple, normal ROM - Respiratory Respiratory effort: normal Respiratory: bilateral: diminished, negative: rales, rhonchi, wheezing - Cardiovascular Rhythm: regular Heart Sounds: Present: S1 & S2 - Extremities Extremities: no ischemia, No edema - Abdominal General gastrointestinal: soft, non-tender, non-distended, normal bowel sounds, other (PEG tube in place) - Integumentary Integumentary: Present: clear, warm - Psychiatric Psychiatric: appropriate mood/affect, cooperative - Neurologic Neurologic: other (left-sided hemiparesis, slow speech) Disposition: DC/[place]-06 HOME UNDER HOME [facility] Time spent for discharge: 34 minutes Core Measure Documentation - Palliative Care Palliative Care/ Comfort Measures: Not Applicable - Core Measures Any of the following diagnoses?: none Exam - Constitutional Vitals: Temp Pulse Resp BP Pulse Ox 98.6 F 98 H 18 138/69 97 01/05/19 11:47 01/05/19 11:47 01/05/19 11:47 01/05/19 11:47 01/05/19 11:47 Plan Activity: up only with assistance, fall precautions Weight Bearing Status: Non-Weight Bearing Diet: other (TF per dietary recommendation) Wound: keep clean and dry Special Instructions: record daily BP diary Follow up with: PRIMARY CARE, [Primary Care Provider] - 3-5 Days Prescriptions: levETIRAcetam [Keppra] 1,000 mg PO BID 30 Days Lacosamide [Vimpat] 100 mg PO Q12H #60 tablet
[2019-01-06] MEDS: INSULIN LISPRO 100 UNIT/ML SUB-Q SCH ×4 (00:12→17:15)
[2019-01-06] MEDS: PHOS-NAK POWDER PACKET PO SCH ×3 (05:38→21:45)
[2019-01-06] MEDS: LEVOTHYROXINE 100 MCG TAB PO SCH (05:38)
[2019-01-06] MEDS: LACOSAMIDE 100 MG TAB PO SCH ×2 (05:38→13:58)
[2019-01-06] MEDS: ACETAMINOPHEN 325 MG/10.15 ML ORAL LIQD UNIT DOSE PO PRN (05:48)
[2019-01-06] MEDS: glipiZIDE XL 5 MG TAB PO SCH (08:00)
[2019-01-06] MEDS: INSULIN NPH/REGULAR 70/30 INJ SUB-Q SCH ×2 (08:00→17:15)
[2019-01-06] MEDS: levETIRAcetam 500 MG/5 ML ORAL LIQD PO SCH ×2 (10:25→21:44)
[2019-01-06] MEDS: DULoxetine 30 MG CAP PO SCH ×2 (10:26→21:45)
[2019-01-06] MEDS: amLODIPine 5 MG TAB PO SCH (10:26)
[2019-01-06] MEDS: LANSOPRAZOLE 30 MG SOLUTAB FEEDTUBE SCH ×2 (10:26→21:45)
[2019-01-06] MEDS: MULTIVITAMINS 5 ML ORAL LIQUID PO SCH (10:27)
[2019-01-06] MEDS: FERROUS SULFATE 308 MG (62mg Elemental Iron) / 7 ML ELIXIR PO SCH (10:27)
--- NOTE | 2019-01-06 13:46 | Progress Note ---
Assessment and Plan /Dysphagia/abnormal swallow eval; Swallow Evaluation abnormal , adviced PEG s/p PEG placement. tolerating tube feeds /-Acute CVA; left weakness cont Aspirin and statin, PT,OT rehabilitation. HH on d/c, family did not want placement /-Metabolic Encephalopathy Etiology secondary to CVA and seizure disorder. Continue to treat underlying causes. /Seizure disorder; No new episodes of seizures , mild facial twitches , on antiepileptic medications Keppra and Vimpat Neurology following , continue seizure precautions /-Generalized Debility PT/OT, supportive care /Severe hypokalemia; Resolved /-Hypomagnesemia: Hypeo phosphatemia Resolved, Closely monitor electrolytes /-Diabetes mellitus Continue Accu-Cheks and sliding scale insulin. /-HTN (hypertension) Well control with medical management. /Hypothyroidism Continue Synthroid daily /-DVT prophylaxis; Lovenox Disposition; discharged home with home health Brief History 73 yr old Patient with a history of hypertension diabetes osteoarthritis COPD CVA with left hemiparesis and debility admitted through emergency room with history of altered mental status and found to have new onset multiple seizures. Neurology evaluated placed on antiepileptic medications Speech and swallow evaluated failed swallow evaluation recommended PEG, underwe nt PEG placement, started tube feeding, possible discharge with home health when family available Hospitalist Physical General appearance: Present: no acute distress, well-nourished, other (responds appropriately, confused at times) - EENT Eyes: Present: PERRL, EOM intact - Neck Neck: Present: supple, normal ROM - Respiratory Respiratory effort: normal Respiratory: bilateral: diminished, negative: rales, rhonchi, wheezing - Cardiovascular Rhythm: regular Heart Sounds: Present: S1 & S2 - Extremities Extremities: no ischemia, No edema - Abdominal General gastrointestinal: soft, non-tender, non-distended, normal bowel sounds, other (PEG tube in place) - Integumentary Integumentary: Present: clear, warm - Psychiatric Psychiatric: appropriate mood/affect, cooperative - Neurologic Neurologic: other (left-sided hemiparesis, slow speech) Subjective Date of service: 01/06/19 Principal diagnosis: PEG placement Interval history: Patient seen and examined tolerating TF, discharge pending on Family patient denies any new complaints Objective - Constitutional Vitals: Vital Signs - 12hr 01/06/19 01/06/19 01/06/19 03:33 08:00 08:23 Temperature 98.5 F 98.6 F Pulse Rate 106 H 100 H Pulse Rate [ 106 H Apical] Pulse Rate [ 106 H Left Radial] Pulse Rate [ 106 H Right Brachial] Pulse Rate [ 106 H Right Radial] Respiratory 18 21 18 Rate Blood Pressure 132/103 117/67 O2 Sat by Pulse 98 98 96 Oximetry 01/06/19 10:26 Temperature Pulse Rate 92 H Pulse Rate [ Apical] Pulse Rate [ Left Radial] Pulse Rate [ Right Brachial] Pulse Rate [ Right Radial] Respiratory Rate Blood Pressure 112/50 O2 Sat by Pulse Oximetry - Labs CBC & Chem 7: 12/29/18 09:50 01/01/19 05:08 Labs: Abnormal lab results 01/05/19 01/05/19 01/06/19 Range/Units 16:38 23:41 06:22 POC Glucose 136 H 219 H 212 H (70-105) 01/06/19 Range/Units 12:23 POC Glucose 135 H (70-105)
[2019-01-06] MEDS: diphenhydrAMINE 25 MG CAP PO PRN (13:58)
[2019-01-07] MEDS: INSULIN LISPRO 100 UNIT/ML SUB-Q SCH ×3 (01:41→12:24)
[2019-01-07] MEDS: LORazepam 2 MG/ML VIAL IV PRN (01:41)
[2019-01-07] MEDS: LACOSAMIDE 100 MG TAB PO SCH (02:58)
[2019-01-07] MEDS: LEVOTHYROXINE 100 MCG TAB PO SCH (06:36)
[2019-01-07] MEDS: PHOS-NAK POWDER PACKET PO SCH (06:36)
[2019-01-07] MEDS: glipiZIDE XL 5 MG TAB PO SCH (08:30)
[2019-01-07 11:39] VITALS: BP 122/72
[2019-01-07] MEDS: amLODIPine 5 MG TAB PO SCH (11:42)
[2019-01-07] MEDS: DULoxetine 30 MG CAP PO SCH (11:42)
[2019-01-07] MEDS: LANSOPRAZOLE 30 MG SOLUTAB FEEDTUBE SCH (11:42)
[2019-01-07] MEDS: levETIRAcetam 500 MG/5 ML ORAL LIQD PO SCH (11:42)
[2019-01-07] MEDS: INSULIN NPH/REGULAR 70/30 INJ SUB-Q SCH (11:46)
[2019-01-07] MEDS: FERROUS SULFATE 308 MG (62mg Elemental Iron) / 7 ML ELIXIR PO SCH (11:46)
[2019-01-07] MEDS: MULTIVITAMINS 5 ML ORAL LIQUID PO SCH (11:50)
== END 2019-01-07 14:00 | disposition home health service (06) | DRG 64 ==
LOC: ED 09:47 → 2B-ACE 13:27 → IMCU 12-25 20:55 → 4A 12-29 21:50
PROVIDERS: ADMIT Internal Medicine; ATTEND Internal Medicine
PROC: 0DH63UZ Insertion of Feeding Device into Stomach, Percutaneous Approach (ICD-10-PCS; principal; 2019-01-04)
DX: I63.89 Other cerebral infarction (principal); G93.41 Metabolic encephalopathy; R65.10 Systemic inflammatory response syndrome (SIRS) of non-infectious origin without acute organ dysfunction; G81.94 Hemiplegia, unspecified affecting left nondominant side; I10 Essential (primary) hypertension; E11.8 Type 2 diabetes mellitus with unspecified complications; E83.42 Hypomagnesemia; E87.6 Hypokalemia; J44.9 Chronic obstructive pulmonary disease, unspecified; K21.9 Gastro-esophageal reflux disease without esophagitis; E03.9 Hypothyroidism, unspecified; M19.90 Unspecified osteoarthritis, unspecified site; Z82.49 Family history of ischemic heart disease and other diseases of the circulatory system; R13.10 Dysphagia, unspecified; G40.909 Epilepsy, unspecified, not intractable, without status epilepticus; E83.39 Other disorders of phosphorus metabolism; Z79.899 Other long term (current) drug therapy
CPT/HCPCS: 36415; 70450; 70551; 71045; 74018; 80048; 80053; 80061; 80307; 80320; 81001; 82140; 82550; 82805; 82962; 83036; 83735; 84100; 84132; 84439; 84443; 85007; 85025; 85610; 85730; 93005; 93010; 94760; 95819; 96365; 96375; G0378; C9254; G0480; J0690; J1650; J1815; J1953; J1956; J2060; J2405; J2704; J3010; J3370; J3475; J3480; J7030; J7040

== ENCOUNTER 2019-02-18 10:00 | Outpatient (CLI) | payer MEDICARE ==
--- NOTE | 2019-02-18 11:30 | Fluoroscopy Report ---
BARIUM SWALLOW Indication: DYSHAGIA. Technique: Single contrast barium technique utilized to evaluate the esophagus. FINDINGS: To begin the exam, swallowing was evaluated in the lateral position under direct fluorosco py. Swallowing was normal. No mucosal irregularity, mass, mass effect, or critical stenosis. A small sliding hiatal hernia was witnessed. Occasional episodes of reflux into the distal esophagus were also witnessed. Occasional t ertiary contractions. IMPRESSION: Small sliding hiatal hernia with evidence of mild gastroesophageal reflux. Fluoroscopic time: 10 minutes Number of fluoroscopic images: 11 Signer Name: Elliot Su Jr, MD Signed: 02/18/2019 11:26 AM Workstation Name: [id number]
== END 2019-02-18 10:01 | disposition home or self-care (01) ==
LOC: FLUORO 10:00
PROVIDERS: ATTEND Family Medicine
DX: K21.9 Gastro-esophageal reflux disease without esophagitis (principal); K44.9 Diaphragmatic hernia without obstruction or gangrene; I10 Essential (primary) hypertension; E11.9 Type 2 diabetes mellitus without complications; E03.9 Hypothyroidism, unspecified; G47.33 Obstructive sleep apnea (adult) (pediatric); Z87.891 Personal history of nicotine dependence
CPT/HCPCS: 74220